=== PATIENT | male | born 1965 | race Caucasian/White ===

== ENCOUNTER 2022-01-01 17:26 | Emergency (ER) | payer OTHER, MEDICARE, SELFPAY ==
[2022-01-01 17:54] VITALS: BP 186/91; PULSE 76; RESP 14; TEMP 36.6; O2SAT 99
--- NOTE | 2022-01-01 20:02 | ECG_ITS ---
[facility] Test Date: 2022-01-01 Pat Name: Jeffery Amos Department: Room: Gender: Male [address] Clerk: : 1965 Requested By: Jennifer Benitez Order Number: [id number] Sheri MD: Hakan Jurado M.D. Measurements Intervals [place] Rate: 62 P: 66 TX: 134 QRS: 63 QRSD: 101 T: 48 QT: 410 QTc: 418 Interpretive Statements SINUS RHYTHM No previous ECG available for comparison Electronically Signed On 01-02-2022 9:30:16 CDT by Hakan Jurado M.D. [id number]
--- NOTE | 2022-01-01 20:02 | CTR_ITS ---
PROCEDURE INFORMATION: Exam: CT Abdomen And Pelvis Without Contrast Exam date and time: 01/01/2022 8:41 PM Age: 56 years old Clinical indication: Abdominal pain; Generalized; Prior surgery; Surgery type: Back surgery; Patient HX: C/O diffuse abd pain with nausea TECHNIQUE: Imaging protocol: Computed tomography of the abdomen and pelvis without contrast. Radiation optimization: All CT scans at this facility use at least one of these dose optimization techniques: automated exposure control; mA and/or kV adjustment per patient size (includes targeted exams where dose is matched to clinical indication); or iterative reconstruction. COMPARISON: No relevant prior studies available. RADIATION DOSE METRICS: Total DLP (mGy-cm): 1768.33 FINDINGS: Liver: Normal. No mass. Gallbladder and bile ducts: Normal. No calcified stones. No ductal dilation. Pancreas: Normal. No ductal dilation. Spleen: Normal. No splenomegaly. Adrenal glands: Normal. No mass. Kidneys and ureters: Normal. No hydronephrosis. Stomach and bowel: Unremarkable. No obstruction. No mucosal thickening. Appendix: No evidence of appendicitis. Intraperitoneal space: Unremarkable. No free air. No significant fluid collection. Vasculature: Unremarkable. No abdominal aortic aneurysm. Lymph nodes: Unremarkable. No enlarged lymph nodes. Urinary bladder: Unremarkable as visualized. Reproductive: Unremarkable as visualized. Bones/joints: Unremarkable. No acute fracture. The lumbar spine demonstrates moderate discogenic and apophyseal joint degenerative changes at multiple levels. Soft tissues: Unremarkable. CT/CT abdomen pelvis wo con [id number] IMPRESSION: No acute findings.
[2022-01-01 20:03] LABS: Basophils % 0.4 %; Eosinophils # 0.1 10^3/uL (0.0-0.8); Eosinophils % 0.8 %; Hematocrit 48.7 % (42.0-52.0); Hemoglobin 16.3 g/dL (11.7-16.6); Lymphocytes # 1.5 10^3/uL (0.8-4.8); Lymphocytes % 18.5 %; Mean Corpuscular HGB Conc 33.5 g/dL (30.0-36.0); Mean Corpuscular Hemoglobin 31.3 pg (28.0-34.0); Mean Corpuscular Volume 93.5 fl (80-94); Mean Platelet Volume 11.1 fL (7.4-10.4); Monocytes # 0.5 10^3/uL (0.2-0.9); Neutrophils # 5.93 10^3/uL (1.8-7.7); Nucleated Red Blood Cells % 0 %; Platelet Count 165 10^3/cmm (130-400); Red Blood Count 5.21 10^6/uL (4.1-5.3); Red Cell Distribution Width 11.5 % (12.1-15.1)
--- NOTE | 2022-01-01 20:07 | W.ED.ABDPA2 ---
HPI - Abdominal Pain General: Chief Complaint: Abdominal Pain Stated Complaint: severe abdominal pain Time Seen by Provider: 01/01/22 19:41 Source: patient Mode of arrival: ambulatory Limitations: no limitations History of Present Illness: 56-year-old male has a history of chronic back pain he is on morphine for that back pain he states he has been having episodic epigastric abdominal pain for months. He states he usually will take his home meds and improved he states that today he started having pain at 10 it has not improved. States epigastric very sharp in nature rates it a 7 out of 10 he denies any vomiting diarrhea or fever. Associated Symptoms: Denies chills, dysuria and fever(s) Review of Systems Const: Denies: fever(s), chills, body aches or change in appetite Eyes: Denies: blurry vision or eye discomfort ENMT: Denies: throat pain or dental pain Card: Denies: chest pain Resp: Denies: dyspnea GI: Reports: abdominal pain : Denies: dysuria Musc: Denies: neck pain or back pain Skin/Breast: Denies: rash Neuro: Denies: headache(s) Psych: Denies: depression Xu/Lymph: Denies: easy bruising All/Imm: Denies: urticaria PFSH ED PFSH: Medical History (Updated 01/01/22 @ 21:35 by Jennifer Benitez MD) Back pain Social History (Updated 01/01/22 @ 20:08 by Jennifer Benitez MD) Smoking and tobacco status: current every day smoker Physical Exam Const: COMMON NORMALS: no acute distress, patient oriented x3 and healthy appearing HENMT: COMMON NORMALS: normocephalic and atraumatic HEAD & SCALP: normocephalic and atraumatic Eye: COMMON NORMALS: Equal, round and reactive pupils present and EOMs intact bilaterally PUPIL: Yes Equal, round and reactive pupils present Neck/C-Spine: COMMON NORMALS: full ROM and supple Chest: COMMONS NORMALS: normal inspection of the chest and normal palpation of entire chest wall Resp: COMMON NORMALS: normal respiratory effort, No retractions, No use of accessory muscles and clear to auscultation bilaterally AUSCULTATION: clear to auscultation bilaterally Cardio: COMMON NORMALS: regular rate, regular rhythm and No murmurs present (Cardio) RATE: regular rate RHYTHM: regular rhythm GI: COMMON NORMALS: Normal to inspection, nondistended, normoactive bowel sounds present, Soft to palpation and no masses PALPATION: Yes Soft to palpation OTHER: epigastric tenderness Extremity: COMMON NORMALS: normal to inspection and full ROM Neuro: COMMON NORMALS: patient oriented x3, moves all extremities and no focal motor deficits Psych: COMMON NORMALS: mental status grossly normal, Normal thought process present and cooperative THOUGHT PROCESS: Normal thought process present Skin: COMMON NORMALS: no rashes or lesions noted and no wounds GENERAL SKIN EXAM: no rashes or lesions noted Course Vital Signs: Vital signs: Vital Signs Temperature 98.3 F 01/01/22 20:24 Pulse Rate 66 01/01/22 21:00 Respiratory Rate 14 01/01/22 21:00 Blood Pressure 167/96 01/01/22 21:00 Pulse Oximetry 95 01/01/22 21:00 MDM - Abdominal Pain Medical Decision Making Patient presents with abdominal pain blood work CT scan here are all normal we will start him on Protonix as it could be gastritis he is to follow-up his PCP and return if worsening he understands agrees to plan. His pain is improved discharge exam is benign. Lab Data : 01/01/22 19:59 01/01/22 19:59 Labs/Radiology: Radiology Impressions Abdomen/Pelvis CT 01/01/22 20:02 IMPRESSION: No acute findings. Laboratory Results WBC 8.0 10^3/uL (4.0-10.0) 01/01/22 19:59 RBC 5.21 10^6/uL (4.1-5.3) 01/01/22 19:59 Hgb 16.3 g/dL (11.7-16.6) 01/01/22 19:59 Hct 48.7 % (42.0-52.0) 01/01/22 19:59 MCV 93.5 fl (80-94) 01/01/22 19:59 MCH 31.3 pg (28.0-34.0) 01/01/22 19:59 MCHC 33.5 g/dL (30.0-36.0) 01/01/22 19:59 RDW 11.5 % (12.1-15.1) L 01/01/22 19:59 Plt Count 165 10^3/cmm (130-400) 01/01/22 19:59 MPV 11.1 fL (7.4-10.4) H 01/01/22 19:59 Neut % (Auto) 74.0 % 01/01/22 19:59 Lymph % (Auto) 18.5 % 01/01/22 19:59 [place] % (Auto) 6.0 % 01/01/22 19:59 Eos % (Auto) 0.8 % 01/01/22 19:59 Baso % (Auto) 0.4 % 01/01/22 19:59 Neut # (Auto) 5.93 10^3/uL (1.8-7.7) 01/01/22 19:59 Lymph # (Auto) 1.5 10^3/uL (0.8-4.8) 01/01/22 19:59 [place] # (Auto) 0.5 10^3/uL (0.2-0.9) 01/01/22 19:59 Eos # (Auto) 0.1 10^3/uL (0.0-0.8) 01/01/22 19:59 Baso # (Auto) 0.0 10^3/uL (0.0-0.1) 01/01/22 19:59 Nucleated RBC % (auto) 0 % 01/01/22 19:59 Nucleated RBCs # 0.0 /100WBC 01/01/22 19:59 Sodium 142 mmol/L (136-145) 01/01/22 19:59 Potassium 4.1 mmol/L (3.5-5.1) 01/01/22 19:59 Chloride 105 mmol/L (98-107) 01/01/22 19:59 Carbon Dioxide 27 mmol/L (22-29) 01/01/22 19:59 Anion Gap 14.1 (5-19) 01/01/22 19:59 BUN 10 mg/dL (6-20) 01/01/22 19:59 Creatinine 0.7 mg/dL (0.7-1.2) 01/01/22 19:59 GFR Calculation 116.2 mL/min (90-130) 01/01/22 19:59 Glucose 114 mg/dL (65-115) 01/01/22 19:59 Calculated Osmolality 294 mOsm/kg (285-295) 01/01/22 19:59 Calcium 9.0 mg/dL (8.5-10.5) 01/01/22 19:59 Total Bilirubin 1.6 mg/dL (0.15-1.2) H 01/01/22 19:59 AST 115 U/L (0-40) H 01/01/22 19:59 ALT 164 U/L (0-41) H 01/01/22 19:59 Alkaline Phosphatase 45 IU/L (40-130) 01/01/22 19:59 Total Protein 7.2 g/dL (6.6-8.7) 01/01/22 19:59 Albumin 4.6 g/dL (3.5-5.2) 01/01/22 19:59 Globulin 2.6 g/dL (1.3-4.6) 01/01/22 19:59 Lipase 38 U/L (13-60) 01/01/22 19:59 Urine Color Yellow (Yellow) 01/01/22 20:50 Urine Appearance Clear (CLEAR) 01/01/22 20:50 Urine pH 8 (5-7) H 01/01/22 20:50 Ur Specific [place] 1.010 (1.005-1.030) 01/01/22 20:50 Urine Protein Neg (Negative) 01/01/22 20:50 Urine Glucose (UA) Norm (Normal) 01/01/22 20:50 Urine Ketones Negative (Negative) 01/01/22 20:50 Urine Blood Neg (Negative) 01/01/22 20:50 Urine Nitrate Negative (Negative) 01/01/22 20:50 Urine Bilirubin Neg (Negative) 01/01/22 20:50 Prot Sulfosalicylic Acd Negative (Negative) 01/01/22 20:50 Urine Urobilinogen Norm mg/dL (Negative) 01/01/22 20:50 Ur Leukocyte Esterase Negative (Negative) 01/01/22 20:50 EKG Data EKG 1: I personally reviewed and interpreted this EKG as follows: EKG interpretation date: 01/01/22 EKG interpretation time: 20:08 Interpretation: nsr hr [address] or t wave abnormalities qrs 101 qtc 415 Discharge Plan Discharge Patient Disposition: Home Clinical Impression: Abdominal pain Qualifiers: Abdominal location: epigastric Qualified Code(s): R10.13 - Epigastric pain Prescriptions: New ondansetron 4 mg tablet,disintegrating 4 mg PO Q6H PRN (Reason: nausea and vomiting) Qty: 14 0RF Protonix 40 mg tablet,delayed release (DR/EC) 40 mg PO DAILY Qty: 60 0RF Discharge Orders: Discharge ED (Routine); Ordered 01/01/22 Ordered By: Jennifer Benitez Referrals: Patricia Henry MD [Primary Care Provider] - 1-3 days Discharge Diet: Advance as tolerated Discharge Activity: Resume usual activity Patient Instructions: Abdominal Pain (ED) Coding Level of Care Code ED [employer] 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
[2022-01-01 20:24] VITALS: BP 171/83; PULSE 62; RESP 18; TEMP 36.8; O2SAT 98
[2022-01-01 20:24] LABS: Alanine Aminotransferase 164 U/L (0-41); Albumin Level 4.6 g/dL (3.5-5.2); Alkaline Phosphatase 45 IU/L (40-130); Anion Gap 14.1 (5-19); Aspartate Amino Transferase 115 U/L (0-40); Blood Urea Nitrogen 10 mg/dL (6-20); Carbon Dioxide 27 mmol/L (22-29); Chloride 105 mmol/L (98-107); Globulin 2.6 g/dL (1.3-4.6); Glomerular Filtration Rate 116.2 mL/min (90-130); Glucose 114 mg/dL (65-115); Lipase 38 U/L (13-60); Osmolality Calculated 294 mOsm/kg (285-295); Potassium 4.1 mmol/L (3.5-5.1); Sodium 142 mmol/L (136-145); Total Bilirubin 1.6 mg/dL (0.15-1.2); Total Protein 7.2 g/dL (6.6-8.7)
[2022-01-01 20:29] VITALS: RESP 16; O2SAT 98
[2022-01-01] MEDS: HYDROmorphone 1 mg/mL INJ 1 mL IVP (20:29)
[2022-01-01] MEDS: ondansetron 2 mg/ML SDV 2 mL 4 MG IVP (20:29)
[2022-01-01 20:30] VITALS: BP 156/88; PULSE 60; RESP 16; O2SAT 97
[2022-01-01 20:55] LABS: Add Urine Microscopic? NO; Charge for UA Resulting for Rev
[2022-01-01 21:00] VITALS: BP 167/96; PULSE 66; RESP 14; O2SAT 95
[2022-01-01 21:23] LABS: Bilirubin Urine Neg (Negative); Blood Urine Neg (Negative); Glucose Urine UA Norm (Normal); Ketones Urine Negative (Negative); Leukocyte Esterase Urine Negative (Negative); Nitrate Urine Negative (Negative); Protein Urine Neg (Negative); Sulfosalicylic Acid Urine Negative (Negative); Urine Appearance Clear (CLEAR); Urine Color Yellow (Yellow); Urobilinogen Urine Norm (Negative); pH Urine 8 (5-7)
[2022-01-01 21:49] VITALS: BP 164/77; PULSE 66; RESP 18; TEMP 37.3; O2SAT 97
== END 2022-01-01 21:50 | disposition home or self-care (01) ==
PROVIDERS: Emergency Medicine; Emergency Provider Emergency Medicine; PCP Family Medicine
DX: R10.13 Epigastric pain (principal)
CPT/HCPCS: 74176; 80053; 81003; 83690; 85025; 93005; 96374; 96375; 99284; J1170; J2405

== ENCOUNTER 2023-03-04 20:00 | Outpatient (CLI) | payer OTHER, SELFPAY | END 2023-03-04 20:01 | disposition home or self-care (01) | PROVIDERS: PCP Family Medicine; Visit Provider Family Medicine | DX: G47.33 Obstructive sleep apnea (adult) (pediatric) (principal) | CPT/HCPCS: 95810; 95811 ==

== ENCOUNTER 2025-02-16 10:36 | Emergency (ER) | payer OTHER, SELFPAY ==
--- OUTSIDE RECORDS SUMMARY | 2024-05-04 08:31 | XMS_ITS | Encounter Summary ---
Author Name [facility] [place] [facility] Address [address] [place] [address] Care Team Providers Care Route Sales Specialist Name Role Phone THANIA DE Primary Care Provider Unavailabl e BILL KAPOOR Primary Care Provider Unavailabl e Insurance Providers: All historical and current Section Date Range: From patient's date of to the date document was created. This section includes the names of all active insurance providers for the patient. Insurance Provider Type of Coverage Plan Name Start of Policy Coverage End of Policy Coverage Group Number Member ID Insurance Provider's Telephone Number Policy Stout's Name Patient's Relationship to Policy Stout MEDICARE (WNR) MEDICARE (M) PART B Sep 03, 2020 PART B [id number] KLAUS CORRAL PATIENT MEDICARE (WNR) MEDICARE (M) PART A Sep 03, 2020 PART A [id number] KLAUS CORRAL PATIENT [facility] 2018 [place] RE Aug 03, 2017 SELECT [id number] KLAUS CORRAL PATIENT -FO R-LIFE [place] RE FOR LIFE Sep 03, 2020 [facility] [id number] KLAUS CORRAL PATIENT Selected Encounter This section includes the information on record at [place] for the Encounter. Date/Time Encounter Type Encounter Description Reason Pro vider Source May 04, 2024 01:31 PM Outpatient Encounter ADMIN PAT ACTIVTIES (MASNONCT) [facility] Encounter Template Text not used by [place] Plan of Treatment: Future Appointments (+ 6 months) and Future Tests (+/- 45 days) The Plan of Treatment section includes future care activities for the patient from all [place] treatmentfacilities. This section includes future appointments and future orders which are active, pending or scheduled. Future Appointments This section includes appointments that were scheduled to occur 6 months from the date of the Encounter, up to a maximum of 20 appointments. The data comes from all [place] treatment facilities. Appointment Date/Time Appointment Type Appointme nt Facility Name Jun 07, 2024 03:00 PM AMBULATORY - MEDICINE [facility] Jun 07, 2024 03:01 PM AMBULATORY - MEDICINE [facility] Jun 14, 2024 10:50 AM AM[facility] - [facility]ICINE [facility] Jul 05, 2024 10:00 AM AMBULATORY - NONE [facility] Aug 09, 2024 03:00 PM AMBULATORY - MEDICINE [facility] Aug 09, 2024 03:02 PM AM[facility] - [facility]ICINE [facility] Oct 12, 2024 02:30 PM AMBULATORY - NONE [facility] Oct 13, 2024 10:40 AM AMBULATORY - MEDICINE [facility] Oct 21, 2024 11:00 AM AMBULATORY - MEDICINE [facility] Oct 25, 2024 02:30 PM AMBULATORY - MEDICINE [facility] Nov 01, 2024 02:30 PM AMBULATORY - MEDICINE [facility] Social History: Smoking Status (Most current) and Tobacco Use (All prior to encounter date) This section includes the most current, and the historical, smoking and tobacco- related health factors from the [place] facility where the Encounter took place. Current Smoking Status This section includes the most current smoking, or tobacco-related health factor, from the [place] facility where the Encounter took place. Date/Time Current Smoking Status [place] Oct 29, 2023 01:00 PM VA-TOBACCO USE [place] 30 MIN OF WAKE UP [facility] Tobacco Use History This section includes a history of the smoking, or tobacco-related health factors, that were collected on or before the date of the Encounter. The data comes from the [place] facility where the Encounter took place. 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 [facility] Oct 29, 2023 01:00 PM VA-TOBACCO USE MED NO [facility] Oct 29, 2023 01:00 PM VA-TOBACCO USE WI 30 MIN OF WAKE UP [facility] Oct 29, 2023 01:00 PM VA-TOBACCO USER EVERY DAY [facility] Nov 06, 2022 02:00 PM VA-TOBACCO DOESNT USE WI 30 MIN WAKEUP [facility] Nov 06, 2022 02:00 PM VA-TOBACCO USE > 1 5 LESS THAN 30 YEARS [facility] Nov 06, 2022 02:00 PM VA-TOBACCO USE ADVICE [facility] Nov 06, 2022 02:00 PM 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 [facility] Nov 06, 2022 02:00 PM VA-TOBACCO USE MED NO [facility] Nov 06, 2022 02:00 PM VA-TOBACCO USER EVERY DAY [facility] Sep 09, 2021 02:31 PM VA-TOBACCO USE > 1 5 LESS THAN 30 YEARS [facility] Sep 09, 2021 02:31 PM VA-TOBACCO USE ADVICE [facility] Sep 09, 2021 02:31 PM 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 This section includes ALL of a patient's completed or amended [place] Advance and Rescinded Directives. The entries below indicate that a directive exists for the patient, but an actual copy is not included with this document. The data comes from all [place] facilities. Date Advance Directives Provider Source Nov 25, 2004 ADVANCE DIRECTIVE LINDA ALDRIDGE [facility] Encounter Notes: All associated encounter notes This section contains the clinical notes associated to the Encounter. Date/Time Encounter Note(s) Provider Source May 04, 2024 01:31 PM GENERAL MEDICINE N OTE: LOCAL TITLE: General Note PB STANDARD TITLE: GENERAL MEDICINE NOTE DATE OF NOTE: MAY 04, 2024@13:31 ENTRY DATE: MAY 04, 2024@13:32:13 AUTHOR: SAM DIXON EXP COSIGNER: URGENCY: STATUS: COMPLETED Rec'd hearing aids, certified in [facility]. Patient has upcoming appt for fitting /es/ [facility] Signed: 05/04/2024 13:32 SAM DIXON [facility]
--- OUTSIDE RECORDS SUMMARY | 2024-10-21 06:00 | XMS_ITS | Encounter Summary ---
Author Name [facility] [place] [facility] [place] [facility] [place] Address [address] [place] [address] Care Team Providers Care Manager Science Name Role Phone PATRICIA HENRY Primary Care Provider Unavailabl e BILL [place] [...] PART B Sep 03, 2020 PART B [id number] KLAUS CORRAL PATIENT MEDICARE (WNR) MEDICARE (M) PART A Sep 03, 2020 PART A [id number] KLAUS CORRAL PATIENT [place] 2018 [place] RE Aug 03, 2017 [facility] [id number] KLAUS CORRAL PATIENT -FO R-LIFE [facility] RE FOR LIFE Sep 03, 2020 [facility] [id number] KLAUS CORRAL PATIENT Selected Encounter This section includes the information on record at [place] for the Encounter. Date/Time Encounter Type Encounter Description Reason Provider Source Oct 21, 2024 11:00 AM OFFICE O/P EST MOD 30 MIN PRIMARY CARE/MEDICINE ICD-10-CM F32.9 Major depressive disorder, single episode, unspecified [facility] Encounter Template Text not used by [facility] Assessments - Encounter Diagnoses This section includes the primary and secondary diagnoses documented for the Encounter. Date/Time Primary/Secondary Diagnosis Diagnosis Name Provider Source Oct 21, 2024 12:08 PM PRIMARY Major depressive disorder, single episode, unspecified [facility] Oct 21, 2024 12:08 PM SECONDARY Cyclothymic disorder [facility] Oct 21, 2024 12:08 PM SECONDARY Essential (primary) hypertension [facility] Oct 21, 2024 12:08 PM SECONDARY Fatty (change of) liver, not elsewhere classified [facility] Oct 21, 2024 12:08 PM SECONDARY Hematuria, unspecified [facility] Oct 21, 2024 12:08 PM SECONDARY Male erectile dysfunction, unspecified [facility] Oct 21, 2024 12:08 PM SECONDARY Nicotine dependence, cigarettes, uncomplicated [facility] Oct 21, 2024 12:08 PM SECONDARY Obesity, unspecified [facility] Oct 21, 2024 12:08 PM SECONDARY Other hemorrhoids [facility] Oct 21, 2024 12:08 PM SECONDARY Other [facility]borrheic keratosis [facility] Oct 21, 2024 12:08 PM SECONDARY Pol[facility] Oct 21, 2024 12:08 PM SECONDARY Post-traumatic stress disorder, chronic [facility] Oct 21, 2024 12:08 PM SECONDARY Prediabetes [facility] Oct 21, 2024 12:08 PM SECONDARY Sleep apnea, unspecified [facility] Oct 21, 2024 12:08 PM SECONDARY Ventricular premature depolarization PATRICIA HENRY [facility] Plan of Treatment: Future Appointments (+ 6 months) and Future Tests (+/- 45 days) The Plan of Treatment section includes future care activities for the patient [facility]. This section includes future appointments and future orders which are active, pending or scheduled. Future Appointments This section includes appointments that were scheduled to occur 6 months from the date of the Encounter, up to a maximum of 20 appointments. The data comes from all [place] treatment facilities. Appointment Date/Time Appointment Type Appointme nt Facility Name Oct 25, 2024 02:30 PM AMBULATORY - MEDICINE [facility] Nov 01, 2024 02:30 PM [facility] Nov 15, 2024 02:30 PM [facility] Nov 22, 2024 02:30 PM [facility] - MEDICINE [facility] 2024 02:30 PM AMBULATORY MEDICINE [facility] Active, Pending, and Scheduled Orders This section includes a listing of several types of active, pending, and scheduled orders, including clinic medications orders, diagnostic test orders, procedure orders and consult orders; where the start date of the order is 45 days before the date of the Encounter or 45 days after the date of theEncounter. The data comes from all [place] treatment facilities. Test Date/Time Test Type Test Details Facility Name Sep 30, 2024 09:56 AM Consult Order [facility] MASSAGE THERAPY [id number] Cons [employer] Trainer's Choice [facility] Lab Results: +/- 30 days of the encounter This section includes the Chemistry and Hematology Lab Results on record with [place] for the patient. Radiology Reports and Pathology Reports are provided separately, in subsequent sections. Lab Results This section contains the Chemistry/Hematology Results that were resulted 30 days before or 30 daysafter the date of the Encounter. Date/Time Source Result Type Result - Unit Interpretation Reference Range Specimen Type Comment Oct 12, 2024 11:10 AM [facility] TSH ([place]-PB) SERUM Specimen Type: SERUM No comment entered. Ordering Provider: PATRICIA HENRY Report Released Date/Time: Oct 12, 2024 11:09 AM Reporting Lab: JENNIFER RODNEY [facility] [address] [place] [address] Performing Lab: [place] [facility] [address] [place] [address] TSH 1.032 u[IU]/mL 0.47-5 Oct 12, 2024 11:10 AM [place] [facility] CHOLESTEROL PANEL (PB) PLASMA Specimen Type: P LASMA No comment entered. Ordering Provider: PATRICIA HENRY Report Released Date/Time: Oct 12, 2024 11:09 AM Reporting Lab: [place] [facility] [address] [place] [address] Performing Lab: [place] [facility] [address] [place] [address] CHOLESTEROL 187 mg/dL 0-200 TRIGLYCERIDE 119 mg/dL 0-150 CALCULATED LDL 127.0 mg/dL HDL(New) 36.2 mg/dL L >40 HDL % OF TOTAL CHOLESTEROL (PB) 19.4 >25 Oct 12, 2024 11:10 AM [place] [facility] HGA1C BLOO D Specimen Type: BLOOD No comment entered. Ordering Provider: PATRICIA HENRY Report Released Date/Time: Oct 12, 2024 11:09 AM Reporting Lab: [place] [facility] [address] [place] [address] Performing Lab: [place] [facility] [address] [place] [address] HGA1C 6.3 H 4.0-6.0 Oct 12, 2024 11:10 AM [place] [facility] CBC BLOO D Specimen Type: BLOOD No comment entered. Ordering Provider: PATRICIA HENRY Report Released Date/Time: Oct 12, 2024 11:09 AM Reporting Lab: [place] [facility] [address] [place] [address] Performing Lab: [place] [facility] [address] [place] [address] WBC 6.7 10*3/uL 3.6-11.2 RBC 5.27 10*6/uL 4.10-5.70 HGB 16.9 g/dL H 13.1-16.8 HCT 48.8 H 38.2-48.4 MCV 92.6 fL 80.0-100.0 MCH 32.1 pg 27.0-34.0 MCHC 34.6 g/dL 33.0-36.0 PLT 232 10*3/uL 150-400 MPV 10.7 fL 7.5-11.2 RDW 12.0 11.8-15.1 LYMPHOCYTES, AUTO % 39.8 MONOCYTES, AUTO % 8.4 NEUTROPHILS, AUTO % 49.2 EOSINOPHILS, AUTO % 1.8 BASOPHILS, AUTO % 0.6 LYMPHOCYTES, ABSOLUTE 2.65 10*3/uL 0.77- 4.50 MONOCYTES, ABSOLUTE 0.56 10*3/uL 0.19-0. 8 NEUTROPHILS, ABSOLUTE 3.27 10*3/uL 2.10- 8.00 EOSINOPHILS, ABSOLUTE 0.12 10*3/uL 0.00- 0.60 BASOPHILS, ABSOLUTE 0.04 10*3/uL 0.00-0. 20 IMMATURE GRANS, AUTO % 0.2 IMMATURE GRANS, AUTO ABS 0.01 10*3/uL 0. 00-0.05 Oct 12, 2024 11:10 AM [facility] COMPREHENSIVE METABOLIC PANEL PLASMA Specimen Type: PLASMA No comment entered. Ordering Provider: PATRICIA HENRY Report Released Date/Time: Oct 12, 2024 11:09 AM Reporting Lab: [facility] [address] [facility] [address] Performing Lab: [facility] [address] [facility] [address] CREATININE 0.93 mg/dL 0.7-1.3 UREA NITROGEN 13 mg/dL 9-25 GLUCOSE 108 mg/dL H 72-99 SODIUM 141 meq/L 136-145 POTASSIUM 4.4 meq/L 3.5-5 CHLORIDE 105 meq/L 98-107 CARBON DIOXIDE 26 meq/L 22-31 CALCIUM 9.1 mg/dL 8.4-10.4 PROTEIN 7.2 g/dL 6-8.6 ALBUMIN 4.5 g/dL 3.4-5 TOTAL BILIRUBIN 0.6 mg/dL 0.2-1.2 ALKALINE PHOSPHATASE 38 U/L L 40-150 AST/SGOT 39 U/L H 5-34 ALT/SGPT 96 U/L H 8-40 EGFR (CKD-EPI 2020) 95 Vital Signs: All taken on the encounter date This section contains inpatient and outpatient Vital Signs collected on the date of the Encounter. Date/Time Temperature Pulse Blood Pressure Respiratory Rate SP02 Pain Height Weight Body Mass Index Source Oct 21, 2024 11:32 AM 177/88 [facility] Oct 21, 2024 11:31 AM 82 158/104 18 97 6 287.9 43 [facility] Social History: Smoking Status (Most current) and Tobacco Use (All prior to encounter date) This section includes the most current, and the historical, smoking and tobacco- related health factors from the [place] facility where the Encounter took place. Current Smoking Status This section includes the most current smoking, or tobacco-related health factor, from the [place] facility where the Encounter took place. Date/Time Current Smoking Status Comment Facil ity Oct 21, 2024 11:00 AM VA-TOBACCO USE EVERY DAY CIGARET [facility] Tobacco Use History This section includes a history of the smoking, or tobacco-related health factors, that were collected on or before the date of the Encounter. The data comes from the [place] facility where the Encounter took place. Date/Time Smoking Status/Tobacco Use Comment F acility Oct 21, 2024 11:00 AM VA-TOBACCO SCREEN FOLLOW-UP [facility] Oct 21, 2024 11:00 AM VA-TOBACCO USE ADVICE [facility] Oct 21, 2024 11:00 AM VA-TOBACCO USE NITROGLYCERIN NITRATOR OPERATOR BATCH NO [facility] Oct 21, 2024 11:00 AM VA-TOBACCO USE EVERY DAY CIGARET [facility] Oct 21, 2024 11:00 AM VA-TOBACCO USE MED NO [facility] Oct 29, 2023 01:00 PM VA-TOBACCO USE 30 YEARS OR MORE [facility] Oct 29, 2023 01:00 PM VA-TOBACCO USE ADVICE [facility] Oct 29, 2023 01:00 PM VA-TOBACCO USE NITROGLYCERIN NITRATOR OPERATOR BATCH NO [facility] Oct 29, 2023 01:00 PM VA-TOBACCO USE MED NO [facility] Oct 29, 2023 01:00 PM VA-TOBACCO USE WI 30 MIN OF WAKE UP [facility] Oct 29, 2023 01:00 PM VA-TOBACCO USER EVERY DAY [facility] Nov 06, 2022 02:00 PM VA-TOBACCO DOESNT USE WI 30 MIN WAKEUP [facility] Nov 06, 2022 02:00 PM VA-TOBACCO USE > 1 5 LESS THAN 30 YEARS [facility] Nov 06, 2022 02:00 PM VA-TOBACCO USE ADVICE [facility] Nov 06, 2022 02:00 PM VA-TOBACCO USE NITROGLYCERIN NITRATOR OPERATOR BATCH NO [facility] Nov 06, 2022 02:00 PM VA-TOBACCO USE MED NO [facility] Nov 06, 2022 02:00 PM VA-TOBACCO USER EVERY DAY [facility] Sep 09, 2021 02:31 PM VA-TOBACCO USE > 1 5 LESS THAN 30 YEARS [facility] Sep 09, 2021 02:31 PM VA-TOBACCO USE ADVICE [facility] Sep 09, 2021 02:31 PM VA-TOBACCO USE NITROGLYCERIN NITRATOR OPERATOR BATCH NO [facility] Sep 09, 2021 02:31 PM VA-TOBACCO USE MED NO [place] [facility] Sep 09, 2021 02:31 PM VA-TOBACCO USE WI 30 MIN OF WAKE UP [facility] Sep 09, 2021 02:31 PM VA-TOBACCO USER EVERY DAY [facility] Sep 06, 2008 11:00 PM IC/PATIENT IS SMOKER [facility] Sep 06, 2008 11:00 PM PATIENT NOT GIVEN TOBACCO HANDOU T [facility] Advance Directives: All historical and current Section Date Range: From patient's date of to the date document was created. This section includes ALL of a patient's completed or amended [place] Advance and Rescinded Directives. The entries below indicate that a directive exists for the patient, but an actual copy is not included with this document. The data comes from all [place] facilities. Date Advance Directives Provider Source Nov 25, 2004 ADVANCE DIRECTIVE LINDA ALDRIDGE [facility] Encounter Notes: All associated encounter notes This section contains the clinical notes associated to the Encounter. Date/Time Encounter Note(s) Provider Source Oct 21, 2024 02:03 PM ORTHOTICS PROSTHETICS EDUCATION NOTE: LOCAL TITLE: NURSING PROSTHETIC ITEM PATIENT EDUCATION NOTE PB STANDARD TITLE: ORTHOTICS PROSTHETICS EDUCATION NOTE DATE OF NOTE: OCT 21, 2024@14:03 ENTRY DATE: OCT 21, 2024@14:03:11 AUTHOR: KARTIK FONTENOT COSIGNER: URGENCY: STATUS: COMPLETED Prosthetic Patient Education Learner: Patient Method: Individual Evaluation of Learning: Able to Perform/Verbalize Items: BP Monitor & Cuff 1. Sit comfortably with your left arm resting on a flat surface so that the center of your upper arm is at the same height as your heart. 2. Lay left arm on the table, palm up and thread cuff end through metal loop, smooth side against arm. Then position the tube off-center toward the inner side of arm in line with the finger. 3. Pull the end of the cuff to tighten it, fold back the extra material, and fasten securely. The cuff should be snug but not too tight. You should be able to insert two fingers between the cuff and your arm. 4. Confirm that the index points within the proper fit range. 5. Press the START button. As the cuff pressurizes, measurement will begin and the Cuff Inflation Meter will show on the display screen. It is normal for the cuff to feel very tight. 6. When the inflation is complete, the deflation starts automatically and the heart blinks, indicating that the measurement is in progress. Once the pulse is detected, the symbol flashes with each pulse beat. 7. When the measurement is complete, the systolic and diastolic pressure readings and pulse rate are displayed. The cuff deflates and the monitor automatically shuts off after 60 seconds, or you can turn it off by pressing the START button. 8. The reading is then stored into memory. 9. Remove cuff and make a note of your blood pressure and pulse rate. Electrodes/TENS Instructions: Electrodes applied to the skin allow the stimulator to send gentle electrical current to underlying nerves. Firmly insert the end of the lead wire pin into the electrode connectors. Make sure no bare metal of the pins is exposed. Remove electrodes from protective backing. Keep backing to properly store electrodes after use. Apply electrodes to the exact site indicated by your Doctor or therapist. Skin at the application site should be clean and dry. Check that electrodes are securely placed on the skin before activating the device. Possible adverse reactions Do no use to treat one region for extended periods of time (more than 30 minutes a session, up to 2 times per day) or muscles in that region may become exhausted and sore You may experience skin irritation and nickerson beneath the electrodes applied to your skin You should stop using the device and consult your physician if you experience adverse reactions from the device. A copy of this document was provided to the patient. /es/ Kartik Fontenot RN,BSN [place] Signed: 10/21/2024 14:07 [facility] Oct 21, 2024 12:08 PM INTEGRATIVE HEALTH NOTE: LOCAL TITLE: [place] ACUPUNCTURE NOTE STANDARD TITLE: INTEGRATIVE HEALTH NOTE DATE OF NOTE: OCT 21, 2024@12:08 ENTRY DATE: OCT 21, 2024@12:08:56 AUTHOR: PATRICIA HENRY COSIGNER: URGENCY: STATUS: COMPLETED Initial visit [place] Acupuncture was the only treatment given. Patient was evaluated and agreed to receive [place] Acupuncture (BFA). Patient was evaluated and agreed to receive [place] Acupuncture Protocol (BFA) for the following pain condition(s): Comment: Lower back left shoulder Pre BFA Pain Numeric Rating Scale of site with highest pain: 6 The patient was asked the following questions: During the past 24 hours, how much has your pain interfered with your usual activity? 6 During the past 24 hours, how much has your pain interfered with your usual sleep? 6 During the past 24 hours, how much has the pain affected your usual mood? 6 During the past 24 hours, how much has pain contributed to your stress? 8 Oral informed consent obtained for BFA. Procedure: Ear was prepped with alcohol Needle type: Adhesive press tacks 0.9 The following points were placed: All 10 points in both ears Complications: Patient tolerated well, without any complications. Post treatment Numeric Pain Rating Scale: To be determined standard [id number] time for application of BFA protocol is 15 minutes. No electrical stimulation was used. Face to face time spent [facility] procedure in the delivery of BFA was 15 minutes. The patient was provided with the following post BFA instructions: -Continue normal activities and avoid over exertion for the initial 6-12 hours after a treatment. Avoid alcohol for 12 hours after treatment. -You may bathe or shower with the needles in place, but be careful not to pull the needles when cleaning or drying the ear. -If you experience new or continued redness, swelling or pain, remove the needles or return to clinic for evaluation and/or needle removal. -You may experience drowsiness, lightheadedness, or euphoria during the treatment or within 30 minutes of treatment. -Do not have an MRI scan with the needles in place (If you need to have an MRI, please remove needles prior to scan). -Continue to take all prescription medication according to your provider's instructions. -After three days, remove all needles. You may have small stud needles (ASP needles) covered by an adhesive bandage, or needles that are attached to the adhesive bandage (press tack needles). ASP needles may be removed by gripping them with your fingernails or tweezers. Rock the needles back and forth to remove. Press tack needles may be removed by peeling off the tape that holds the needle in place. -[place] must be placed in a sharps container or household container that meets sharps disposal guidelines. Household container must be: a. made of a puncture-resistant material; b. able to close with a tight-fitting, puncture resistant lid, without sharps being able to come out; c. stand upright and be stable during use; d. leak-resistant; e. properly labeled (sharps - biohazard); and f. disposed of according to community guidelines, if available. -Please keep all regularly scheduled follow-up visits. Return sooner should your condition worsen. Future visit dates/details: lisha /brenda/ Patricia Henry MD [facility] Primary Care Signed: 10/21/2024 12:10 PATRICIA HENRY [facility] Oct 21, 2024 11:36 AM PRIMARY CARE PROGRESS NOTE: LOCAL TITLE: PRIMARY CARE CLINIC PROGRESS NOTE PB STANDARD TITLE: PRIMARY CARE PROGRESS NOTE DATE OF NOTE: OCT 21, 2024@11:36 ENTRY DATE: OCT 21, 2024@11:36:19 AUTHOR: PATRICIA HENRY EXP COSIGNER: URGENCY: STATUS: COMPLETED SUBJECTIVE: ROBERTO CARLOS CORRAL is a 58 years old MALE. HPI: Presents to the clinic today for a periodic health maintenance visit. Last seen October 29, 2023. He reports he was seeing the massage theraptist that was in the rocess of getting him a neurolumen's to use. He does have a TENS unit but does not use it needs new electronic pads. He does have some skin spots that he would like looked at as well. Non-VA Primary Care Provider None Specialty Services none FAMILY HX: Mother is living, Breast cancer age - 83 Father- unknown Sister- Costello's syndrome SOCIAL HX: MARITAL STATUS: , Raquel WORK HX: retired, [employer] HOBBIES: Odom, fish, woodworking TOBACCO: + 1ppd ALCOHOL: occ DRUGS: no HX: BRANCH: [employer] [phone]. 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 OVERSEAS STATIONS/DEPLOYMENTS: [place], [place], [place], [place], [place], [place] MAJOR ACCIDENTS OR INJURIES WHILE ON ACTIVE DUTY: SURGICAL HX: laminectomy L3/4 discectomy lumbar wisdom teeth Problem List 1) Polyp Colon (RUST [id number]) 2) Cyclothymia 3) Degeneration of Lumbar Intervertebral Disc (RUST [id number]) 4) Steatosis of liver 5) Major depressive disorder 6) Hematuria 7) Internal hemorrhoids 8) Sleep Apnea (RUST [id number]) 9) Obesity (RUST [id number]) 10) Chronic post-traumatic stress disorder 11) HTN - Hypertension (RUST [id number]) 12) Erectile Dysfunction (RUST [id number]) 13) Prediabetes (RUST [id number]) 14) Unifocal premature ventricular complexes 15) Cigarette smoker 16) Prediabetes (RUST [id number]) Active Outpatient Medications (including Supplies): Active Outpatient Medications Status 1) CHOLECALCIF 50MCG (D3-2,000UNIT) TAB TAKE TWO TABLETS BY ACTIVE MOUTH ONCE A DAY FOR VITAMIN D DEFICIENCY. 2) HYDROCHLOROTHIAZIDE 25MG TAB TAKE ONE TABLET BY MOUTH ONCE A ACTIVE DAY FOR BLOOD PRESSURE 3) IBUPROFEN 800MG TAB TAKE ONE TABLET BY MOUTH EVERY 6 HOURS ACTIVE NEEDED FOR PAIN OR INFLAMMATION. TAKE WITH FOOD. 4) MORPHINE SO4 15MG SA TAB TAKE ONE TABLET BY MOUTH EVERY 12 ACTIVE HOURS MAY CAUSE CONSTIPATION. SWALLOW WHOLE; DO NOT CRUSH OR CHEW. THIS QUANTITY MUST LAST 28 DAYS OR MORE 5) MORPHINE SO4 IR 15MG TAB TAKE ONE TABLET BY MOUTH EVERY 24 ACTIVE HOURS (ONCE A DAY) NEEDED FOR BREAKTHROUGH PAIN MAY CAUSE CONSTIPATION. THIS QUANTITY MUST LAST 28 DAYS OR MORE 6) SILDENAFIL CITRATE 100MG TAB TAKE ONE TABLET BY MOUTH EVERY ACTIVE WEEK NEEDED FOR ERECTILE DYSFUNCTION (TAKE 60 MINUTES PRIOR TO SEXUAL ACTIVITY) - LIMIT 6 DOSES PER 30 DAYS Allergies: TETRACYCLINE Review of Systems: as per HPI and Systemic: Denies fatigue, fever, chills, or weight loss CV: Denies chest pain, palpitations Pulmonary: Denies hemoptysis, Shortness of breath, dyspnea on exertion GI: Denies constipation, bloody stools, diarrhea, indigestion, or n/v Ext: Denies any swelling Neuro: Denies slurred speech or dizziness Skin: Denies abnormal lesions; denies any new rashes PSYCH: Denies SI/HI; denies nightmares OBJECTIVE: Vital Signs Temperature: 98.5 F [36.9 C] (11/12/2023 16:34) Respiratory Rate: 18 (10/21/2024 11:31) Pulse Rate: 82 (10/21/2024 11:31) Blood Pressure: 177/88 (10/21/2024 11:32) HT: 69 in [175.3 cm] (10/29/2023 13:14) WT: 287.9 lb [130.59 kg] (10/21/2024 11:31) BMI: 42.6 97% (10/21/2024 11:31) Physical Exam General: NAD noted, A&Ox3, pleasant, appears stated age HEENT: NCAT, TM's clear, nares and oropharynx clear Neck: Supple with normal active ROM, without any lymphadenopathy Heart: RRR, no murmur, clicks, or rub Resp: Lungs CTA bilaterally, respirations even and unlabored Ext: No clubbing, cyanosis, edema or obvious deformity Skin: Warm, pink, and dry, no rashes; several scattered seborrheic keratoses Neuro: Grossly intact Psych: Affect normal, answers questions appropriately throughout visit A/P: ASSESSMENT and PLAN Health Maintenance: Labs reviewed with patient and printout given to patient. Discussed preventative health to include diet and exercise as well as immunizations. 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 Mccarthy on morphine and soma prn (reports 1-4x/week dependent on activity) DIscussed BFA which he as tried in the past without results but willing to try again. He was in massage theary and they were trying to get him a neurolumen equipment to use. He does have a TENs unit which he is not curretnly using, but I encouraged him to use regularly, new pads given. . Steatosis of liver- monitoring enzymes; encouraged weight loss with diet and exercise. Sleep Apnea- stable on his CPAP Morbid Obesity- he has gained 9 pounds since his visit in January of last year HTN - will increase his hydrochlorothiazide to 25 mg daily have him come in in a couple weeks for blood pressure recheck Erectile Dysfunction - doing well on Viagra Vit D deficiency- on supplement Unifocal premature ventricular complexes-stable no palpitations;he did have a stress test 2022 which was negative Heart murmur-we will set him up for an echocardiogram for further evaluation; ECG today normal sinus rhythm no acute ST changes normal axis Cigarette smoker-encouraged him to quit smoking Hematuria-will obtain a UA today Internal hemorrhoids-stable denies any current issues Seborrheic keratoses-reassured Stable. Discussed medications with patient; med rec completed. Continue current regimen as prescribed by PCP and specialists. RTC as needed if developing any new or worsening symptoms. Please notify PACT with medication changes or for orders coordination as needed if seen by a specialist in the future. Will f/u with patient once updated labs / imaging / testing received; otherwise f/u as listed below. Follow-up: 12 months with fasting labs prior to appointment and/or as needed. Discussed with patient that in the event of community imaging / testing being ordered in the future, once the imaging / testing has been completed, please notify PACT of completion at outside facility if not called with results within 1 week by a [facility] member; this is due to intermittent lapses in notification of imaging completion within [facility]. All questions answered; agrees to plan of care. Follow up as listed above, annually, and as needed. Keep all appointments. Medications Reconciled. See AVS given to . Time spent 30 minutes. /brenda/ MD [facility] Signed: 10/21/2024 12:07 [facility] Oct 21, 2024 11:09 AM PRIMARY CARE NURSING NOTE: LOCAL TITLE: PRIMARY CARE NURSING PROGRESS NOTE (TEXT) NURSING P STANDARD TITLE: PRIMARY CARE NURSING NOTE DATE OF NOTE: OCT 21, 2024@11:09 ENTRY DATE: OCT 21, 2024@11:10:12 AUTHOR: KARTIK FONTENOT COSIGNER: URGENCY: STATUS: COMPLETED Established Patient ROBERTO CARLOS CORRAL IS A 58 YEAR OLD MALE BEING SEEN IN CLINIC OCT 21, 2024. REASON FOR VISIT: The is here for is annual visit, the has complete of skin tags on the right shoulder that have gotten tender over the last 3-4 months. The has questions about massage therapy. Are you receiving care any where other than the [facility]? No HEALTH AND SURGICAL HISTORY: Does patient report using home oxygen? No CURRENT ACTIVE MEDICATIONS FOR REVIEW: Allergies/ADRs (Tool #5) FACILITY ALLERGY/ADR -------- [facility] T[facility]AC[facility]CL[facility] T[facility]RAC[facility]CLINE [facility] TETRACYCLINE Med. Reconciliation (Tool #1) INCLUDED IN THIS LIST: Alphabetical list of active outpatient prescriptions dispensed from this VA (local) and dispensed from another VA or DoD facility (remote) as well as inpatient orders (local pending and active), local clinic medications, locally documented non-VA medications, and local prescriptions that have or been discontinued in the past 90 days. Non-VA Meds Last Documented On: Data not found NOTE The display of VA prescriptions dispensed from another VA or DoD facility (remote) is limited to active outpatient prescription entries matched to National Drug File at the originating site and may not include some items such as investigational drugs, compounds, etc. NOT INCLUDED IN THIS LIST: Medications self-entered by the patient into personal health records (i.e. [employer]) are NOT included in this list. Non-VA medications documented outside this [place], remote inpatient orders (regardless of status) and remote clinic medications are NOT included in this list. The patient and provider must always discuss medications the patient is taking, regardless of where the medication was dispensed or obtained. OUTPT CHOLECALCIF 50MCG (D3-2,000UNIT) TAB (Status = Active) TAKE TWO TABLETS BY MOUTH ONCE A DAY FOR VITAMIN D DEFICIENCY. Rx# [id number] Last Released: 11/02/23 Qty/Days Supply: 200/90 Rx Expiration Date: 10/29/24 Refills Remainin OUTPT HYDROCHLOROTHIAZIDE 25MG TAB (Status = Active) TAKE ONE TABLET BY MOUTH ONCE A DAY FOR BLOOD PRESSURE Rx# [id number] Last Released: 07/04/24 Qty/Days Supply: 90/90 Rx Expiration Date: 10/29/24 Refills Remainin OUTPT IBUPROFEN 800MG TAB (Status = Active) TAKE ONE TABLET BY MOUTH EVERY 6 HOURS NEEDED FOR PAIN OR INFLAMMATION. TAKE WITH FOOD. Rx# [id number] Last Released: 06/07/24 Qty/Days Supply: 100/30 Rx Expiration Date: 10/29/24 Refills Remainin OUTPT MORPHINE SO4 15MG SA TAB (Status = Discontinued) TAKE ONE TABLET BY MOUTH EVERY 12 HOURS THIS QUANTITY MUST LAST 28 DAYS OR MORE MAY CAUSE CONSTIPATION. SWALLOW WHOLE; DO NOT CRUSH OR CHEW. Rx# [id number] Last Released: 07/14/24 Qty/Days Supply: 56/28 Rx Expiration Date: 08/11/24 Refills Remainin OUTPT MORPHINE SO4 15MG SA TAB (Status = Discontinued) TAKE ONE TABLET BY MOUTH EVERY 12 HOURS MAY CAUSE CONSTIPATION. SWALLOW WHOLE; DO NOT CRUSH OR CHEW. Rx# [id number] Last Released: 08/10/24 Qty/Days Supply: Rx Expiration Date: 09/08/24 Refills Remainin OUTPT MORPHINE SO4 15MG SA TAB (Status = Discontinued) TAKE ONE TABLET BY MOUTH EVERY 12 HOURS MAY CAUSE CONSTIPATION. SWALLOW WHOLE; DO NOT CRUSH OR CHEW. Rx# [id number] Last Released: 09/07/24 Qty/Days Supply: Rx Expiration Date: 10/05/24 Refills Remainin OUTPT MORPHINE SO4 15MG SA TAB (Status = Active) TAKE ONE TABLET BY MOUTH EVERY 12 HOURS MAY CAUSE CONSTIPATION. SWALLOW WHOLE; DO NOT CRUSH OR CHEW. THIS QUANTITY MUST LAST 28 DAYS OR MORE Rx# [id number] Last Released: 10/05/24 Qty/Days Supply: Rx Expiration Date: 11/03/24 Refills Remainin OUTPT MORPHINE SO4 IR 15MG TAB (Status = Discontinued) TAKE ONE TABLET BY MOUTH EVERY 24 HOURS (ONCE A DAY) NEEDED FOR BREAKTHROUGH PAIN THIS QUANTITY MUST LAST 28 DAYS OR MORE MAY CAUSE CONSTIPATION. Rx# [id number] Last Released: 07/14/24 Qty/Days Supply: Rx Expiration Date: 08/11/24 Refills Remainin OUTPT MORPHINE SO4 IR 15MG TAB (Status = Discontinued) TAKE ONE TABLET BY MOUTH EVERY 24 HOURS (ONCE A DAY) NEEDED FOR BREAKTHROUGH PAIN MAY CAUSE CONSTIPATION. Rx# [id number] Last Released: 08/10/24 Qty/Days Supply: Rx Expiration Date: 09/08/24 Refills Remainin OUTPT MORPHINE SO4 IR 15MG TAB (Status = Discontinued) TAKE ONE TABLET BY MOUTH EVERY 24 HOURS (ONCE A DAY) NEEDED FOR BREAKTHROUGH PAIN MAY CAUSE CONSTIPATION. Rx# [id number] Last Released: 09/07/24 Qty/Days Supply: Rx Expiration Date: 10/05/24 Refills Remainin OUTPT MORPHINE SO4 IR 15MG TAB (Status = Active) TAKE ONE TABLET BY MOUTH EVERY 24 HOURS (ONCE A DAY) NEEDED FOR BREAKTHROUGH PAIN MAY CAUSE CONSTIPATION. THIS QUANTITY MUST LAST 28 DAYS OR MORE Rx# [id number] Last Released: 10/05/24 Qty/Days Supply: Rx Expiration Date: 11/03/24 Refills Remainin OUTPT SILDENAFIL CITRATE 100MG TAB (Status = Active) TAKE ONE TABLET BY MOUTH EVERY WEEK NEEDED FOR ERECTILE DYSFUNCTION (TAKE 60 MINUTES PRIOR TO SEXUAL ACTIVITY) - LIMIT 6 DOSES PER 30 DAYS Rx# [id number] Last Released: 06/17/24 Qty/Days Supply: Rx Expiration Date: 10/29/24 Refills Remainin SUPPLIES PHARMACY TERMS AND POSSIBLE PATIENT ACTIONS INPT = [place] inpatient order IV = MA intravenous medication OUTPT = [place] outpatient prescription PHARMACY POSSIBLE PATIENT TERMS EXPLANATION ACTIONS -------- -- ACTIVE A prescription that can be If you have refills, filled at the local [place] pharmacy. you may request a refill of this prescription from your [place] pharmacy. CLINIC A medication you received during If you have questions a visit to a [place] clinic or about this medication emergency department. contact your [place] healthcare team. DISCONTINUED A prescription your provider has Contact your VA stopped. It is no longer healthcare team if you available to be sent to you or need more of this picked up at the [place] pharmacy medication. window. A prescription which is too old Contact your VA to fill. This does not refer to healthcare team if you the expiration date of the need more of this medication in the container. medication. NON-VA A medication that came from If this medication someplace other than a VA information is pharmacy. This may be a incorrect or out of prescription from either the VA date, please tell your or non VA providers that was VA healthcare team. filled outside the VA. Or, it may be an ujem-hxa-edxnkhr (OTC), herbal, dietary supplements or sample medication. ON HOLD An active prescription that will Contact your VA not be filled until pharmacy pharmacy when you need resolves the issue. more of this medication. PARKED An active prescription that will Contact your VA not be filled until the patient pharmacy when you need requests it. this medication. PENDING This prescription order has been If you have been sent to the pharmacy for review instructed to start and is not ready yet. this medication now, contact your VA pharmacy. SUSPENDED An active prescription that is Contact your [place] not scheduled to be filled yet. pharmacy if you need You should receive it before this medication now. you run out. ====== Medication list reviewed with Patient Patient/Caregiver reports taking medications as ordered. IS PATIENT TAKING ANY OVER THE COUNTER MEDICATIONS, SUCH VITAMINS OR HERBAL SUPPLEMENTS, INCLUDING ANY MEDICATIONS PRESCRIBED BY ANOTHER PHYSICIAN? Yes, List: Luzma from Dr. Mccarthy Does patient have any new allergies to report since last visit? NO VITALS: TEMPERATURE: 98.5 F [36.9 C] (11/12/2023 16:34) BP: 121/85 (11/12/2023 16:34) RESP: 18 (11/12/2023 16:34) PULSE: 72 (11/12/2023 16:34) HT: 69 in [175.3 cm] (10/29/2023 13:14) WT: 272.5 lb [123.60 kg] (11/12/2023 16:34) BMI: 40.3 PAIN ASSESSMENT: (Most Recent Pain Score in Vitals Package: 6 (10/29/2023 13:14) ) The patient indicated that they and their close contacts have not traveled outside of the [place] in the past 21 days. The patient reports the following symptoms: No symptoms present The patient is not immunocompromised. The patient does not report having a history of Multi Drug Resistant Organism (MDRO) within the last five years. The patient does not report having been exposed to measles, chickenpox, or zoster in last 30 days. STRESS: Thank you for your service. Now let us serve you. At the [facility], we strive to provide you with exceptional health care that improves your health and well-being. Are you feeling sad, empty, or depressed? No Do you need to talk about things in your life that worry you or cause you stress? No Do you need to talk about personal problems, family problems, alcohol use, drug use, or mental or emotional illness? No SUICIDE SCREENING: The patient was asked, Over the past two weeks, how often have you been bothered by thoughts that you would be better off or of hurting yourself in some way? Not At All SPIRITUAL ASSESSMENT: Are there caodaism practices or spiritual concerns you want the workday financials consultant, your physician, and other health care team members to immediately know about? No Patient advised to call the clinic for any concerns, questions, or symptoms. Patient and/or caregiver verbalized understanding of plan of care. Suicide Screen - V: C-SSRS Screening [place] Suicide Severity Rating Scale (C-SSRS) screener 1. Over the past month, have you wished you were or wished you could go to sleep and not wake up? No 2. Over the past month, have you had any actual thoughts of killing yourself? No 3. Over the past month, have you been thinking about how you might do this? Response not required due to responses to other questions. 4. Over the past month, have you had these thoughts and had some intention of acting on them? Response not required due to responses to other questions. 5. Over the past month, have you started to work out or worked out the details of how to kill yourself? Response not required due to responses to other questions. 6. If yes, at any time in the past month did you intend to carry out this plan? Response not required due to responses to other questions. 7. In your lifetime, have you ever done anything, started to do anything, or prepared to do anything to end your life (for example, collected pills, obtained a gun, gave away valuables, went to the roof but didn't jump)? Yes 8. If YES, was this within the past 3 months? No RHS Screen - VS: RHS Screen Session Format: Face to Face Environmental Check Screening was not completed at this time due to: Another adult present COVID-19 Immunization - L,N,P,PH,U: Refused Moderna Monovalent COVID-19 vaccine Immunization: COVID-19 (MODERNA), MRNA, LNP-S, PF, 50 MCG/0.5 ML (AGES 12+ YEARS) Refusal Reason: PATIENT DECISION Patient refuses all immunization(s) in the COVID-19 group Date Documented: 10/21/24 13:54 Alcohol Use Screen (AUDIT-C) - V: Alcohol Screen: SCREEN FOR ALCOHOL (AUDIT-C) An alcohol screening test (AUDIT-C) was negative (score=1). 1. How often did you have a drink containing alcohol in the past year? Consider a drink to be a 12 ounce can or bottle of regular beer, 8 ounces of malt liquor, a 5 ounce glass of table wine, or a 1.5 ounce shot of liquor (like scotch, gin, or vodka). Monthly or less 2. How many drinks containing alcohol did you have on a typical day when you were drinking in the past year? One or two drinks 3. How often did you have six or more drinks on one occasion in the past year? Never Tobacco Use Screening - AT,DE,L,M,N,P,PH,PS,RT,S,U: The patient smokes cigarettes every day. The patient has never used other types of tobacco. Patient was advised to stop smoking and/or using other tobacco products. Advised patient that a combination of behavioral counseling and FDA-approved cessation medications is the most effective way to ensure their success in stopping to smoke and/or using other tobacco products. The patient was not interested in additional information about behavioral counseling and other support strategies discussed. Informed patient that medications can help with cravings and withdrawal symptoms, and they greatly increase the chances of successfully stopping your tobacco use. The patient was not interested in a prescription for tobacco cessation medications. Hepatitis C Testing - L,N,P,PH: Patient declines HCV lab test. Homelessness/Food Insecurity Screen - DI,L,N,P,PH,PS,S,U: In the past 2 months, have you been living in stable housing that you own, rent, or stay in as part of a household? Yes - Living in stable housing. Are you worried or concerned that in the next 2 months you may NOT have stable housing that you own, rent, or stay in as part of a household? No - Not worried about housing near future The [place] reports the following: Within the past 12 months, you worried whether your food would run out before you got money to buy more. Never true Within the past 12 months, the food you bought just didn't last and you didn't have money to get more. Never true Influenza Immunization - L,N,P,PH,U: Deferral / Refusal The patient declines to receive the recommended dose of seasonal influenza vaccine. Immunization: INFLUENZA, UNSPECIFIED FORMULATION Refusal Reason: PATIENT DECISION Patient refuses all immunization(s) in the FLU group Date Documented: 10/21/24 13:56 MOVE Weight Management: Most recent BMI: 42.6. [place] educated on health risk of obesity and treatment is offered. Participation in a weight management program was considered/offered for this patient based on the current BMI score. Patient declines participation in a weight management program. Tdap Immunization - L,N,P,PH,U: The patient declines to receive the recommended dose of Tdap vaccine. Immunization: TDAP Refusal Reason: PATIENT DECISION Patient refuses all immunization(s) in the TDAP group Date Documented: 10/21/24 13:56 Pneumococcal Conjugate Vaccine (PCV15/PCV20/PCV21) - L,N,P,PH,U: Refuses PCV vaccine Immunization: PNEUMOCOCCAL CONJUGATE, UNSPECIFIED FORMULATION Refusal Reason: PATIENT DECISION Patient refuses all immunization(s) in the PneumoPCV group Date Documented: 10/21/24 13:56 Weight Control/Nutrition Counseling: * Patient declined nutrition and weight screen counseling at this encounter. Pain Assessment: - PAIN ASSESSMENT: .. This patient's last pain assessment score was: 6 (10/21/2024 11:31). A detailed pain assessment showed the following: Pain characteristics (per patient's own words) Constant, Aching, Stabbing Location of current pain Low Back, Shoulder left Onset/Duration of the current pain. Constant or variable? More than a year Pain is aggravated by: Exercise, Kneeling, Lifting, Lying down, Sitting, Standing, Walking Patient's self identified pain goal: 0 HIV Screening-Routine: Patient has been offered HIV testing and has declined. I have explained that HIV testing is recommended for all adults, even if all risk factors are absent. URINE DRUG SCREEN: Patients on chronic opioid therapy for chronic non-malignant pain are required to have an UDS at least every 6 months. In addition, documentation of verbal consent for ongoing UDS is required at least every 6 months Patient is receiving opioid from non-VA provider and is therefore excluded from having to obtain a bi-annual UDS at this facility Herpes Zoster (Shingles) Vaccine - L,N,P,PH,U: The patient declines to receive the recommended dose of zoster (shingles) vaccine. Immunization: ZOSTER RECOMBINANT Refusal Reason: PATIENT DECISION Patient refuses all immunization(s) in the ZOSTER group Date Documented: 10/21/24 13:58 Patient/Nurse Interview: * * Patient stated that adequate information was received regarding the condition and/or treatment. Comment: IF you have any questions please call the clinic Per [facility] Directive 1605.06, wristband documentation: Patient wristband was removed and destroyed by (staff name) Keith Fontenot RN and placed in the designated [employer] bin. /brenda/ Kartik Fontenot RN,BSN [place], CBOC Signed: 10/21/2024 14:00 KARTIK FONTENOT
--- OUTSIDE RECORDS SUMMARY | 2024-10-25 09:30 | XMS_ITS | Encounter Summary ---
Author Name [facility] [place] Address [address] [place] [address] Care Team Providers Care Office Services Associate Name Role Phone PATRICIA HENRY Primary Care [...] Policy Stout MEDICARE (WNR) MEDICARE (M) PART A Sep 03, 2020 PART A [id number] KLAUS CORRAL PATIENT MEDICARE (WNR) MEDICARE (M) PART B Sep 03, 2020 PART B [id number] KLAUS CORRAL PATIENT [facility] 2018 TRICA RE Aug 03, 2017 [facility] [id number] 89 KLAUS CORRAL PATIENT -FO R-LIFE [facility] LIFE Sep 03, 2020 [facility] [id number] KLAUS CORRAL PATIENT Selected Encounter This section includes the information on record at [place] for the Encounter. Date/Time Encounter Type Encounter Description Reason Provider Source Oct 25, 2024 02:30 PM ACUP 1/> WO ESTIM 1ST 15 MIN PRIMARY CARE/MEDICINE ICD-10-CM M51.16 Intervertebral disc disorders w radiculopathy, lumbar region SANTINO,TAMM Y IHE Encounter Template Text not used by [place] Assessments - Encounter Diagnoses This section includes the primary and secondary diagnoses documented for the Encounter. Date/Time Primary/Secondary Diagnosis Diagnosis Name Provider Source Oct 25, 2024 09:04 PM PRIMARY Intervertebral disc disorders w radiculopathy, lumbar region SANTINO,PATRICIA [facility] Oct 25, 2024 09:04 PM SECONDARY Pain in left shoulder [facility] Plan of Treatment: Future Appointments (+ 6 months) and Future Tests (+/- 45 days) The Plan of Treatment section includes future care activities for the patient [facility] [place] [facility] This section includes future appointments and future orders which are active, pending or scheduled. Future Appointments This section includes appointments that were scheduled to occur 6 months from the date of the Encounter, up to a maximum of 20 appointments. The data comes from all [place] treatment facilities. Appointment Date/Time Appointment Type Appointme nt Facility Name Nov 01, 2024 02:30 PM [facility] Nov 15, 2024 02:30 PM [facility] Nov 22, 2024 02:[address] [facility] 2024 02:30 PM [facility] Active, Pending, and Scheduled Orders This section includes a listing of several types of active, pending, and scheduled orders, including clinic medications orders, diagnostic test orders, procedure orders and consult orders; where the start date of the order is 45 days before the date of the Encounter or 45 days after the date of theEncounter. The data comes from all [place] treatment facilities. Test Date/Time Test Type Test Details Facility Name Sep 30, 2024 09:56 AM Consult Order [facility] MASSAGE THERAPY [id number] Cons Senior Counsel's Choice JENNIFER ANDERSEN [facility] Lab Results: +/- 30 days of the encounter This section includes the Chemistry and Hematology Lab Results on record with [place] for the patient. Radiology Reports and Pathology Reports are provided separately, in subsequent sections. Lab Results This section contains the Chemistry/Hematology Results that were resulted 30 days before or 30 daysafter the date of the Encounter. Date/Time Source Result Type Result - Unit Interpretation Reference Range Specimen Type Comment Oct 12, 2024 11:10 AM [facility] TSH (MA-PB) SERUM Specimen Type: SERUM No comment entered. Ordering Provider: PATRICIA HENRY Report Released Date/Time: Oct 12, 2024 11:09 AM Reporting Lab: [place] [facility] [address] [place] [address] Performing Lab: [place] [facility] [address] [place] [address] TSH 1.032 u[IU]/mL 0.47-5 Oct 12, 2024 11:10 AM [facility] CHOLESTEROL PANEL (PB) PLASMA Specimen Type: P LASMA No comment entered. Ordering Provider: PATRICIA HENRY Report Released Date/Time: Oct 12, 2024 11:09 AM Reporting Lab: [place] [facility] [address] [place] [address] Performing Lab: [place] [facility] [address] [place] [address] CHOLESTEROL 187 mg/dL 0-200 TRIGLYCERIDE 119 mg/dL 0-150 CALCULATED LDL 127.0 mg/dL HDL(New) 36.2 mg/dL L >40 HDL % OF TOTAL CHOLESTEROL (PB) 19.4 >25 Oct 12, 2024 11:10 AM [facility] BL[facility] Specimen Type: BLOOD No comment entered. Ordering Provider: PATRICIA HENRY Report Released Date/Time: Oct 12, 2024 11:09 AM Reporting Lab: [place] [facility] [address] [place] [address] Performing Lab: [place] [facility] [address] [place] [address] HGA1C 6.3 H 4.0-6.0 Oct 12, 2024 11:10 AM [place] [facility] CBC BLOO D Specimen Type: BLOOD No comment entered. Ordering Provider: PATRICIA HENRY Report Released Date/Time: Oct 12, 2024 11:09 AM Reporting Lab: [place] [facility] [address] [place] [address] Performing Lab: [place] [facility] [address] [place] [address] WBC 6.7 10*3/uL 3.6-11.2 RBC 5.27 10*6/uL [...] 0. 00-0.05 Oct 12, 2024 11:10 AM [facility] COMPREHENSIVE METABOLIC PANEL PLASMA Specimen Type: PLASMA No comment entered. Ordering Provider: PATRICIA HENRY Report Released Date/Time: Oct 12, 2024 11:09 AM Reporting Lab: [place] [facility] [address] [place] [address] Performing Lab: [place] [facility] [address] [place] [address] CREATININE 0.93 mg/dL 0.7-1.3 UREA NITROGEN 13 [...] U/L H 8-40 EGFR (CKD-EPI 2020) 95 Social History: Smoking Status (Most current) and Tobacco Use (All prior to encounter date) This section includes the most current, and the historical, smoking and tobacco- related health factors from the [place] facility where the Encounter took place. Current Smoking Status This section includes the most current smoking, or tobacco-related health factor, from the [place] facility where the Encounter took place. Date/Time Current Smoking Status Comment Facil ity Oct 21, 2024 11:00 AM VA-TOBACCO USE EVERY DAY CIGARET DAYAMI [facility] Tobacco Use History This section includes a history of the smoking, or tobacco-related health factors, that were collected on or before the date of the Encounter. The data comes from the [place] facility where the Encounter took place. Date/Time Smoking Status/Tobacco Use Comment F acility Oct 21, 2024 11:00 AM VA-TOBACCO SCREEN FOLLOW-UP [facility] [place] [facility] Oct 21, 2024 11:00 AM VA-TOBACCO USE ADVICE [facility] Oct 21, 2024 11:00 AM VA-TOBACCO USE SELF PAY REPRESENTATIVE NO [facility] [facility] Oct 21, 2024 11:00 AM VA-TOBACCO USE EVERY DAY CIGARET DAYAMI [facility] [facility] Oct 21, 2024 11:00 AM VA-TOBACCO USE MED NO [facility] Oct 29, 2023 01:00 PM VA-TOBACCO USE 30 YEARS OR MORE [facility] Oct 29, 2023 01:00 PM VA-TOBACCO USE ADVICE [facility] Oct 29, 2023 01:00 PM VA-TOBACCO USE SELF PAY REPRESENTATIVE NO [facility] [facility] Oct 29, 2023 01:00 PM VA-TOBACCO USE MED NO [facility] [facility] Oct 29, 2023 01:00 PM VA-TOBACCO USE WI 30 MIN OF WAKE UP [facility] [facility] Oct 29, 2023 01:00 PM [...] Nov 06, 2022 02:00 PM VA-TOBACCO USE SELF PAY REPRESENTATIVE NO [facility] Nov 06, 2022 02:00 PM VA-TOBACCO USE MED NO [place] Nov 06, 2022 02:00 PM VA-TOBACCO USER EVERY DAY [facility] Sep 09, 2021 02:31 PM VA-TOBACCO USE > 1 5 LESS THAN 30 YEARS [facility] Sep 09, 2021 02:31 PM VA-TOBACCO USE ADVICE [facility] Sep 09, 2021 02:31 PM VA-TOBACCO USE SELF PAY REPRESENTATIVE NO [place] [facility] Sep 09, 2021 02:31 PM VA-TOBACCO USE MED NO [facility] Sep 09, 2021 02:31 PM VA-TOBACCO USE WI 30 MIN OF WAKE UP [facility] Sep 09, 2021 02:31 PM VA-TOBACCO USER EVERY DAY [facility] [place] [facility] Sep 06, 2008 11:00 PM IC/PATIENT IS SMOKER [facility] Sep 06, 2008 11:00 PM PATIENT NOT GIVEN TOBACCO HANDOU T [facility] Advance Directives: All historical and current Section Date Range: From patient's date of to the date document was created. This section includes ALL of a patient's completed or amended [place] Advance and Rescinded Directives. The entries below indicate that a directive exists for the patient, but an actual copy is not included with this document. The data comes from all [place] facilities. Date Advance Directives Provider Source Nov 25, 2004 ADVANCE DIRECTIVE LINDA ALDRIDGE [facility] Encounter Notes: All associated encounter notes This section contains the clinical notes associated to the Encounter. Date/Time Encounter Note(s) Provider Source Oct 25, 2024 09:00 PM [facility] NOTE: LOCAL TITLE: [place] ACUPUNCTURE NOTE STANDARD TITLE: [facility] NOTE DATE OF NOTE: OCT 25, 2024@21:00 ENTRY DATE: OCT 25, 2024@21:00:06 AUTHOR: PATRICIA HENRY COSIGNER: URGENCY: STATUS: COMPLETED Initial visit [place] Acupuncture was the only treatment given. Patient was evaluated and agreed to receive [place] Acupuncture (BFA). Patient was evaluated and agreed to receive [place] Acupuncture Protocol (BFA) for the following pain condition(s): Comment: Lower back left shoulder Pre BFA Pain Numeric Rating Scale of site with highest pain: 6 The patient was asked the following questions: During the past 24 hours, how much has your pain interfered with your usual activity? 5 During the past 24 hours, how much has your pain interfered with your usual sleep? 9 During the past 24 hours, how much has the pain affected your usual mood? 5 During the past 24 hours, how much has pain contributed to your stress? 9 Oral informed consent obtained for BFA. Procedure: Ear was prepped with alcohol Needle type: Adhesive press tacks 0.9mm The following points were placed: All 10 points in both ears Complications: Patient tolerated well, without any complications. Post treatment Numeric Pain Rating Scale: 10% standard [id number] time for application of BFA protocol is 15 minutes. No electrical stimulation was used. Face to face time spent durin gthis procedure in the delivery of BFA was [...] tape that holds the needle in place. -[place] must be placed in a sharps container [...] visit dates/details: lisha /brenda/ Patricia Henry MD [facility] Primary Care Signed: 10/25/2024 21:04 PATRICIA HENRY [facility]
--- OUTSIDE RECORDS SUMMARY | 2024-11-22 09:30 | XMS_ITS | Encounter Summary ---
Author Name [facility] [place] Address [address] [place] [address] Care Team Providers Care Veterinary Radiologist Name Role Phone PATRICIA HENRY Primary Care [...] PART B Sep 03, 2020 PART B [id number] KLAUS CORRAL PATIENT MEDICARE (WNR) MEDICARE (M) PART A Sep 03, 2020 PART A [id number] KLAUS CORRAL PATIENT [facility] 2018 TRICA RE Aug 03, 2017 [facility] [id number] KLAUS CORRAL PATIENT -FO R-LIFE [facility] RE FOR LIFE Sep 03, 2020 [facility] [id number] 89 KLAUS CORRAL PATIENT Selected Encounter This section includes the information on record at [place] for the Encounter. Date/Time Encounter Type Encounter Description Reason Provider Source Nov 22, 2024 02:30 PM ACUP 1/> WO ESTIM 1ST 15 MIN PRIMARY CARE/MEDICINE ICD-10-CM M54.50 Low back pain, unspecified PATRICIA HENRY Encounter Template Text not used by [place] Assessments - Encounter Diagnoses This section includes the primary and secondary diagnoses documented for the Encounter. Date/Time Primary/Secondary Diagnosis Diagnosis Name Provider Source Nov 30, 2024 11:32 AM PRIMARY Low back pain, unspecified [facility] [place] [facility] Nov 30, 2024 11:32 AM SECONDARY Cervicalgia [facility] [place] [facility] Plan of Treatment: Future Appointments (+ 6 months) and Future Tests (+/- 45 days) The Plan of Treatment section includes future care activities for the patient from all [place] treatmentfacilities. This section includes future appointments and future orders which are active, pending or scheduled. Future Appointments This section includes appointments that were scheduled to occur 6 months from the date of the Encounter, up to a maximum of 20 appointments. The data comes from all [place] treatment facilities. Appointment Date/Time Appointment Type Appointme nt Facility Name 2024 02:30 PM [facility] [place] [facility] December 06, 2024 02:30 PM [facility] [place] [facility] December 13, 2024 02:30 PM [facility] [place] [facility] December 20, 2024 02:30 PM [facility] [place] [facility] December 27, 2024 02:30 PM [facility]ORY - MEDICINE [facility] Jan 03, 2025 02:30 PM [facility]ORY - MEDICINE [facility] Jan 12, 2025 01:00 PM [facility] [place] [facility] Jan 17, 2025 09:30 AM [facility]ORY - MEDICINE [facility] Jan 17, 2025 10:00 AM [facility] MEDICINE [facility] Jan 24, 2025 03:00 PM [facility] [facility] Jan 31, 2025 02:30 PM AM[facility]ULATORY - MEDICINE [facility] Feb 07, 2025 02:30 PM [facility]ORY - MEDICINE [facility] Mar 08, 2025 02:15 PM [facility] [place] [facility] Active, Pending, and Scheduled Orders This section includes a listing of several types of active, pending, and scheduled orders, including clinic medications orders, diagnostic test orders, procedure orders and consult orders; where the start date of the order is 45 days before the date of the Encounter or 45 days after the date of theEncounter. The data comes from all [place] treatment facilities. Test Date/Time Test Type Test Details Facility Name December 08, 2024 10:28 AM Consult Order [facility] [id number] Cons Home Health Aide Caregiver's Choice [facility] Social History: Smoking Status (Most current) and Tobacco Use (All prior to encounter date) This section includes the most current, and the historical, smoking and tobacco- related health factors from the [place] facility where the Encounter took place. Current Smoking Status This section includes the most current smoking, or tobacco-related health factor, from the [place] facility where the Encounter took place. Date/Time Current Smoking Status Comment Facil ity Oct 21, 2024 11:00 AM VA-TOBACCO USE EVERY DAY CIGARET DAYAMI [facility] Tobacco Use History This section includes a history of the smoking, or tobacco-related health factors, that were collected on or before the date of the Encounter. The data comes from the [place] facility where the Encounter took place. Date/Time Smoking Status/Tobacco Use Comment F acility Oct 21, 2024 11:00 AM VA-TOBACCO SCREEN FOLLOW-UP [facility] Oct 21, 2024 11:00 AM VA-TOBACCO USE ADVICE [facility] Oct 21, 2024 11:00 AM VA-TOBACCO USE INSURANCE SALES AGENT NO [facility] Oct 21, 2024 11:00 AM VA-TOBACCO USE EVERY DAY CIGARET DAYAMI [facility] Oct 21, 2024 11:00 AM VA-TOBACCO USE MED NO [facility] Oct 29, 2023 01:00 PM VA-TOBACCO USE 30 YEARS OR MORE [facility] Oct 29, 2023 01:00 PM VA-TOBACCO USE ADVICE [facility] Oct 29, 2023 01:00 PM VA-TOBACCO USE INSURANCE SALES AGENT NO [facility] Oct 29, 2023 01:00 PM VA-TOBACCO USE MED NO [facility] Oct 29, 2023 01:00 PM VA-TOBACCO USE WI 30 MIN OF WAKE UP [place] [facility] Oct 29, 2023 01:00 PM [...] Nov 06, 2022 02:00 PM VA-TOBACCO USE INSURANCE SALES AGENT NO [place] [facility] Nov 06, [...] Sep 09, 2021 02:31 PM VA-TOBACCO USE INSURANCE SALES AGENT NO [place] [facility] Sep 09, 2021 02:31 PM VA-TOBACCO USE MED NO [place] [facility] Sep 09, 2021 02:31 PM VA-TOBACCO USE WI 30 MIN OF WAKE UP [place] [facility] Sep 09, 2021 02:31 PM VA-TOBACCO USER EVERY DAY [place] [facility] Sep 06, 2008 11:00 PM IC/PATIENT IS SMOKER [facility] Sep 06, 2008 11:00 PM PATIENT NOT GIVEN TOBACCO HANDOU T [facility] Advance Directives: All historical and current Section Date Range: From patient's date of to the date document was created. This section includes ALL of a patient's completed or amended [place] Advance and Rescinded Directives. The entries below indicate that a directive exists for the patient, but an actual copy is not included with this document. The data comes from all [place] facilities. Date Advance Directives Provider Source Nov 25, 2004 ADVANCE DIRECTIVE LINDA ALDRIDGE [facility] Radiology Reports: +/- 30 days of the encounter Radiology Reports For cases when an order for radiology services may have been completed prior to the date of the Encounter, the report list includes the Radiology Reports that were completed up to 30 days before dateof the Encounter. For cases when an order for radiology services may have been completed after the date of the Encounter, the report list also includes the Radiology Reports that were completed up to30 days after date of the Encounter. The data comes from all [place] treatment facilities. Date/Time Radiology Report Provider Source December 07, 2024 12:31 PM SPINE LUMBOSACRAL 2 OR 3 VIEWS: ROBERTO CARLOS CORRAL [id number] -[id number] M Exm Date: DECEMBER 07, 2024@12:31 Req Phys: PATRICIA HENRY Pat Loc: PB-[facility] ALT THER BFA GRP ECHO ( Img Loc: PB-XRAY [place] Service: [place] [address] (Case [id number] COMPLETE) SPINE LUMBOSACRAL 2 OR 3 VIEWS (RAD Detailed) CPT:68356 Reason for Study: Pain referral Clinical History: Report Status: Verified Date Reported: DECEMBER 07, 2024 Date Verified: DECEMBER 07, 2024 Proj Engineer E-Sig: Report: EXAM: Lumbar spine AP, lateral, and coned lateral views. FINDINGS: There is no acute fracture or dislocation. There are osseous degenerative changes. There is narrowing of the disc spaces at the L3-4 and L4-5 levels. There is also degenerative change involving the lower thoracic spine. There is very mild scoliosis. There is calcified atherosclerotic change involving the abdominal aorta. Impression: 1. No evidence of acute osseous injury involving the lumbar spine. 2. Osseous degenerative changes. 3. Narrowed disc spaces at the L3-4 and L4-5 levels. 4. Very mild scoliosis. 5. Calcified atherosclerotic change involving the abdominal aorta. Primary Interpreting Staff: Lauri Gonzalez M.D., Radiology (Proj Engineer, no e-sig) /LAURI ESPINAL [facility] Encounter Notes: All associated encounter notes This section contains the clinical notes associated to the Encounter. Date/Time Encounter Note(s) Provider Source Nov 22, 2024 02:30 PM [facility] NOTE: LOCAL TITLE: [place] ACUPUNCTURE NOTE STANDARD TITLE: [facility] NOTE DATE OF NOTE: NOV 22, 2024@14:30 ENTRY DATE: NOV 30, 2024@07:56:31 AUTHOR: PATRICIA HENRY EXP COSIGNER: URGENCY: STATUS: COMPLETED Initial visit [place] Acupuncture was the only treatment given. Patient was evaluated and agreed to receive [place] Acupuncture (BFA). Patient was evaluated and agreed to receive [place] Acupuncture Protocol (BFA) for the following pain condition(s): Comment: Lower back and neck Pre BFA Pain Numeric Rating Scale of [...] has the pain affected your usual mood? 7 During the past 24 hours, how much has pain contributed to your stress? 7 Oral informed consent obtained for BFA. Procedure: Ear was prepped with alcohol Needle type: Adhesive press tacks 1.5 mm The following points were placed: All 10 points in both ears Complications: Patient tolerated well, without any complications. Post treatment Numeric Pain Rating Scale: 20%; but reports sleep much better standard [id number] time for application of BFA protocol is [...] tape that holds the needle in place. -[place] must be placed in a sharps container [...] visit dates/details: lisha /brenda/ Patricia Henry MD [facility] Primary Care Signed: 11/30/2024 07:57 PATRICIA HENRY [facility]
--- OUTSIDE RECORDS SUMMARY | 2025-01-17 04:30 | XMS_ITS | Encounter Summary ---
Author Name [facility] [facility] [place] Address [address] [place] [place] [address] Care Team Providers Care Front End Developer Javascript Html Css Name Role Phone PATRICIA HENRY Primary Care [...] PART A Sep 03, 2020 PART A [id number] KLAUS CORRAL PATIENT MEDICARE (WNR) MEDICARE (M) PART B Sep 03, 2020 PART B [id number] KLAUS CORRAL PATIENT [place] 2018 [place] RE Aug 03, 2017 [facility] [id number] KLAUS CORRAL PATIENT -FO R-LIFE TRICA RE FOR LIFE Sep 03, 2020 [facility] [id number] KLAUS CORRAL PATIENT Selected Encounter This section includes the information on record at [place] for the Encounter. Date/Time Encounter Type Encounter Description Reason Provider Source Jan 17, 2025 09:30 AM OFFICE O/P EST LOW 20 MIN PRIMARY CARE/MEDICINE ICD-10-CM M51.16 Intervertebral disc disorders w radiculopathy, lumbar region SANTINO,TAMM Y IHE Encounter Template Text not used by VA Assessments - Encounter Diagnoses This section includes the primary and secondary diagnoses documented for the Encounter. Date/Time Primary/Secondary Diagnosis Diagnosis Name Provider Source Jan 17, 2025 09:51 AM PRIMARY Intervertebral disc disorders w radiculopathy, lumbar region SANTINO,PATRICIA [facility] Jan 17, 2025 09:51 AM SECONDARY Pain in left shoulder PATRICIA HENRY [facility] Jan 17, 2025 09:51 AM SECONDARY Unilateral primary osteoarthritis, right knee SANTINO,[facility] Plan of Treatment: Future Appointments (+ 6 months) and Future Tests (+/- 45 days) The Plan of Treatment section includes [facility] care activities for the [facility] This section includes future appointments and future orders which are active, pending or scheduled. Future Appointments This section includes appointments that were scheduled to occur 6 months from the date of the Encounter, up to a maximum of 20 appointments. The data comes from all [place] treatment facilities. Appointment Date/Time Appointment Type Appointme nt Facility Name Jan 24, 2025 03:00 PM AMBULATORY - MEDICINE [facility] Jan 31, 2025 02:30 PM AMBULATORY - MEDICINE [facility] Feb 07, 2025 02:30 PM AMBULATORY - MEDICINE [facility] Mar 08, 2025 02:15 PM AMBULATORY - MEDICINE [facility] Active, Pending, and Scheduled Orders This section includes a listing of several types of active, pending, and scheduled orders, including clinic medications orders, diagnostic test orders, procedure orders and consult orders; where the start date of the order is 45 days before the date of the Encounter or 45 days after the date of theEncounter. The data comes from all [place] treatment [facility]. Test Date/Time Test Type Test Details Facility Name December 08, 2024 10:28 AM Consult Order [facility] [id number] Cons Professor Of Sociology's Choice [facility] Vital Signs: All taken on the encounter date This section contains inpatient and outpatient Vital Signs collected on the date of the Encounter. Date/Time Temperature Pulse Blood Pressure Respiratory Rate SP02 Pain Height Weight Body Mass Index Source Jan 17, 2025 09:26 AM 73 /min 149/64 mm[Hg] 97 % [facility] Jan 17, 2025 09:24 AM 97.9 F 72 /min 148/79 mm[Hg] 18 /min 97 % 8 69.0 in 263.7 lb 39 [facility] Social History: Smoking Status (Most current) and Tobacco Use (All prior to encounter date) This section includes the most current, and the historical, smoking and tobacco- related health factors from the [place] facility where the Encounter took place. Current Smoking Status This section includes the most current smoking, or tobacco-related health factor, from the [place] facility where the Encounter took place. Date/Time Current Smoking Status Comment Facil ity Oct 21, 2024 11:00 AM VA-TOBACCO USE EVERY DAY CIGARET DAYAMI [facility] Tobacco Use History This section includes a history of the smoking, or tobacco-related health factors, that were collected on or before the date of the Encounter. The data comes from the [place] facility where the Encounter took place. Date/Time Smoking Status/Tobacco Use Comment F acility Oct 21, 2024 11:00 AM VA-TOBACCO SCREEN FOLLOW-UP [facility] Oct 21, 2024 11:00 AM VA-TOBACCO USE ADVICE [facility] Oct 21, 2024 11:00 AM VA-TOBACCO USE APPRENTICE PLUMBER NO [facility] Oct 21, 2024 11:00 AM VA-TOBACCO USE EVERY DAY CIGARET DAYAMI [facility] Oct 21, 2024 11:00 AM VA-TOBACCO USE MED NO [facility] Oct 29, 2023 01:00 PM VA-TOBACCO USE 30 YEARS OR MORE [facility] Oct 29, 2023 01:00 PM VA-TOBACCO USE ADVICE [facility] Oct 29, 2023 01:00 PM VA-TOBACCO USE APPRENTICE PLUMBER NO [facility] Oct 29, 2023 01:00 PM VA-TOBACCO USE MED NO [facility] Oct 29, 2023 01:00 PM VA-TOBACCO USE WI 30 MIN OF WAKE UP [facility] Oct 29, 2023 01:00 PM [...] Nov 06, 2022 02:00 PM VA-TOBACCO USE APPRENTICE PLUMBER NO [facility] Nov 06, [...] Sep 09, 2021 02:31 PM VA-TOBACCO USE APPRENTICE PLUMBER NO [facility] Sep 09, 2021 02:31 PM VA-TOBACCO USE MED NO [facility] Sep 09, 2021 02:31 PM VA-TOBACCO USE WI 30 MIN OF WAKE UP [facility] Sep 09, 2021 02:31 PM VA-TOBACCO USER EVERY DAY [facility] Sep 06, 2008 11:00 PM IC/PATIENT IS SMOKER [facility] Sep 06, 2008 11:00 PM PATIENT NOT GIVEN TOBACCO HANDOU T [facility] Advance Directives: All historical and current Section Date Range: From patient's date of to the date document was created. This section includes ALL of a patient's completed or amended [place] Advance and Rescinded Directives. The entries below indicate that a directive exists for the patient, but an actual copy is not included with this document. The data comes from all [place] facilities. Date Advance Directives Provider Source Nov 25, 2004 ADVANCE DIRECTIVE LINDA ALDRIDGE [facility] Radiology Reports: +/- 30 days of the [...] the Encounter. The data comes from all [place] treatment facilities. Date/Time Radiology Report Provider Source Jan 17, 2025 09:38 AM KNEE,RIGHT 3 VIEWS : ROBERTO CARLOS CORRAL [id number] -[id number] M Exm Date: JAN 17, 2025@09:38 Req Phys: STAS HENRYMY Pat Loc: PB-ELIN PACT ECHO PCP (Req'g Lo Img Loc: PB-XRAY [facility] Service: [place] [address] (Case [id number] COMPLETE) KNEE,RIGHT 3 VIEWS (RAD Detailed) CPT:07899 Proc Modifiers : RIGHT Reason for Study: right knee Clinical History: Report Status: Verified Date Reported: JAN 17, 2025 Date Verified: JAN 17, 2025 Guest Experience Representative E-Sig: Report: Right knee 3 views. HISTORY: Chronic worsening of right knee pain. DATE: 01/17/2025 9:39 AM FINDINGS: There are degenerative changes present. Mild narrowing lateral compartment. Possible old trauma proximal tibia. 2 small exostoses involving the posterior proximal shaft of the tibia. No evidence of acute fracture or dislocation. Impression: 1. Mild degenerative arthritis 2. 2 small exostoses involving the posterior proximal shaft of the tibia Primary Interpreting Staff: CHEN NORRIS, RADIOLOGIST (Guest Experience Representative, no e-sig) /CHEN Rodgers [facility] Encounter Notes: All associated encounter notes This section contains the clinical notes associated to the Encounter. Date/Time Encounter Note(s) Provider Source Jan 17, 2025 10:55 AM ORTHOTICS PROSTHETICS EDUCATION NOTE: LOCAL TITLE: NURSING PROSTHETIC ITEM PATIENT EDUCATION NOTE PB STANDARD TITLE: ORTHOTICS PROSTHETICS EDUCATION NOTE DATE OF NOTE: JAN 17, 2025@10:55 ENTRY DATE: JAN 17, 2025@10:56:01 AUTHOR: ALMITA GARCES EXP COSIGNER: URGENCY: STATUS: COMPLETED Prosthetic Patient Education Learner: Patient Method: Individual Evaluation of Learning: Able to Perform/Verbalize Items: Knee Brace Fitting Open knee wrap and all straps Position wrap with velez on inside and line up condyle pads slightly above knee. Fasten support straps beginning with most distal to desired comfort level Fasten remaining support straps. Care and Maintenance Wear your brace as prescribed. Maintaining and cleaning the knee brace will help extend its life. When braces are not cleaned regularly they not only start to smell bad, but they also can sometimes cause health problems, such as skin infections like ringworm and even staph infections. Wearing a brace will increase your body temperature in that region, causing moisture to accumulate. Over time, this can cause skin deterioration. If you're not being active, you should take off the brace to allow your skin and the brace to dry out. Clean your brace every two to three days unless your gardening, exercising or engaging in some other activity that would get the brace especially dirty or sweaty. The brace should be cleaned after that activity. For athletic braces that get heavy use, you can also spray them lightly with disinfectant and allow them to air-dry. To wash the brace, use a mild soap and warm water. Allow the brace to air-dry. Do not use hot temperatures to wash or dry. Inspect straps regularly for wear and tear. Any time there's tearing of straps or seams are coming undone, that's a good indicator that the brace has reached the end of its life. Also, the fit of the brace can change, either due to wear and tear or due to changes in our bodies. If the brace has become too loose or too tight, that's a sign that you should inspect it closely and possibly replace it. A copy of this document was provided to the patient. /brenda/ ALMITA GARCES LPN [facility] Signed: 01/17/2025 10:58 ALMITA GARCES [facility] Jan 17, 2025 09:51 AM INTEGRATIVE HEALTH NOTE: LOCAL TITLE: [place] ACUPUNCTURE NOTE STANDARD TITLE: INTEGRATIVE HEALTH NOTE DATE OF NOTE: JAN 17, 2025@09:51 ENTRY DATE: JAN 17, 2025@09:51:32 AUTHOR: PATRICIA HENRY COSIGNER: URGENCY: STATUS: COMPLETED Follow-up visit [place] Acupuncture was the only treatment given. Patient was evaluated and agreed to receive [place] Acupuncture (BFA). Patient was evaluated and agreed to receive [place] Acupuncture Protocol (BFA) for the following pain condition(s): Comment: Lower back and neck, left shoulder, right knee Pre BFA Pain Numeric Rating Scale of site with highest pain: 8 The patient was asked the following questions: During the past 24 hours, how much has your pain interfered with your usual activity? 6 During the past 24 hours, how much has your pain interfered with your usual sleep? 6 During the past 24 hours, how much has the pain affected your usual mood? 6 Dring the past 24 hours, how much has pain contributed to your stress? 6 Oral informed consent obtained for BFA. Procedure: Ear was prepped with alcohol Needle type: Adhesive press tacks 1.0 mm The following points were placed: All 10 points in both ears Complications: Patient tolerated well, without any complications. Post treatment Numeric Pain Rating Scale: 20%; but reports sleep much better standard [id number] time for application of BFA protocol is [...] tape that holds the needle in place. -Brewster must be placed in a sharps container [...] should your condition worsen. Future visit dates/details: meren /brenda/ Patricia Henry MD [facility] Primary Care Signed: 01/17/2025 09:52 PATRICIA HENRY [facility] Jan 17, 2025 09:32 AM PRIMARY CARE PROGRESS NOTE: LOCAL TITLE: PRIMARY CARE CLINIC PROGRESS NOTE PB STANDARD TITLE: PRIMARY CARE PROGRESS NOTE DATE OF NOTE: JAN 17, 2025@09:32 ENTRY DATE: JAN 17, 2025@09:32:11 AUTHOR: PATRICIA HENRY EXP COSIGNER: URGENCY: STATUS: COMPLETED CC: Right knee pain HPI: Patient reports for the last 3 weeks both knees have been bothering him some but the right knee especially just been weak and sore especially on the medial aspect has been swollen at times just feels like a tight balloon. He is taking his ibuprofen and tried to stretch it out heat and ice without any relief. He denies any injury to precipitate this. He is interested in possibly a brace to help. Non-VA Primary Care Provider None Specialty Services none FAMILY HX: Mother is living, Breast cancer age - 83 Father- unknown Sister- Costello's syndrome SOCIAL HX: MARITAL STATUS: , Raquel WORK HX: retired, [employer] HOBBIES: Odom, fish, woodworking TOBACCO: + 1ppd ALCOHOL: occ DRUGS: no HX: BRANCH: [employer] [id number]. 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 OVERSEAS STATIONS/DEPLOYMENTS: [place], [place], [place], [place], [place], [place] MAJOR ACCIDENTS OR INJURIES WHILE ON ACTIVE DUTY: SURGICAL HX: laminectomy L3/4 discectomy lumbar wisdom teeth Problem List 1) Polyp Colon ([facility] [id number]) 2) Cyclothymia 3) Degeneration of Lumbar Intervertebral Disc ([facility] [id number]) 4) Steatosis of liver 5) Major depressive disorder 6) Hematuria 7) Internal hemorrhoids 8) Sleep Apnea ([facility] [id number]) 9) Obesity ([facility] [id number]) 10) Chronic post-traumatic stress disorder 11) HTN - Hypertension ([facility] [id number]) 12) Erectile Dysfunction ([facility] [id number]) 13) Prediabetes ([facility] [id number]) 14) Unifocal premature ventricular complexes 15) Cigarette smoker 16) Prediabetes ([facility] [id number]) 17) Multiple seborrheic keratoses 18) Left shoulder pain 19) Cervicalgia Active Outpatient Medications (including Supplies): Active Outpatient [...] INFLAMMATION. TAKE WITH FOOD. 4) MORPHINE SO4 IR 15MG TAB TAKE ONE TABLET BY MOUTH EVERY 24 ACTIVE HOURS (ONCE A DAY) NEEDED FOR BREAKTHROUGH PAIN THIS QUANTITY MUST LAST 28 DAYS OR MORE MAY CAUSE CONSTIPATION. Active Non-VA Medications Status 1) Non-VA CARISOPRODOL 350MG TAB 350MG BY MOUTH THREE TIMES A ACTIVE DAY NEEDED 5 Total Medications OBJECTIVE: Vital Signs Temperature: 97.9 F [36.6 C] (01/17/2025 09:24) Respiratory Rate: 18 (01/17/2025 09:24) Pulse Rate: 73 (01/17/2025 09:26) Blood Pressure: 149/64 (01/17/2025 09:26) HT: 69.0 in [175.3 cm] (01/17/2025 09:24) WT: 263.7 lb [119.61 kg] (01/17/2025 09:24) BMI: 39.0 97% (01/17/2025 09:26) Physical Exam General: NAD noted, A&Ox3, pleasant, appears stated age HEENT: NCAT, TM's clear, nares and oropharynx clear Neck: Supple with normal active ROM, without any lymphadenopathy Heart: RRR, no murmur, clicks, or rub Resp: Lungs CTA bilaterally, respirations even and unlabored Abdomen: Soft, non-distended, non-tender Ext: No clubbing, cyanosis, edema; bilateral knees with degenerative changes minimal effusion of the right knee very tender to touch no warmth or erythema. X-rays today does show degenerative changes with medial narrowing Neuro: Grossly intact Psych: Affect normal, answers questions appropriately throughout visit Assessment/Plan: Osteoarthritis bilateral knees right greater than left-we will continue supportive care ice and/or heat as needed topical rubs brace given for added support continue with ibuprofen every 8 hours as needed. He was also given BFA today. Follow-up: As scheduled and/or as needed. Discussed with patient that [...] appointments. Medications Reconciled. See AVS given to [place]. Time spent 30 minutes. /brenda/ Patricia Henry MD [facility] Signed: 01/17/2025 09:51 PATRICIA HENRY [facility] Jan 17, 2025 09:19 AM PRIMARY CARE NURSING NOTE: LOCAL TITLE: PRIMARY CARE NURSING PROGRESS NOTE (TEXT) NURSING P STANDARD TITLE: PRIMARY CARE NURSING NOTE DATE OF NOTE: JAN 17, 2025@09:19 ENTRY DATE: JAN 17, 2025@09:19:29 AUTHOR: ALMITA GARCES EXP COSIGNER: URGENCY: STATUS: COMPLETED Established Patient ROBERTO CARLOS CORRAL IS A 59 YEAR OLD MALE BEING SEEN IN CLINIC JAN 17, 2025. REASON FOR VISIT: [place] here for c/o right knee pain x 3 weeks, and BFA Are you receiving care any where other than the VA? No HEALTH AND SURGICAL HISTORY: Does patient report using home oxygen? No CURRENT ACTIVE MEDICATIONS FOR REVIEW: If the list for review does not include a component, then it was not applicable to this patient. Allergies/ADRs (Tool #5) FACILITY ALLERGY/ADR -------- [facility] TETRACYCLINE [facility] TETRACYCLINE [facility] TETRACYCLINE Med. Reconciliation (Tool #1) INCLUDED IN THIS LIST: Alphabetical list of active outpatient prescriptions dispensed from this VA (local) and dispensed from another [place] or DoD facility (remote) as well as inpatient orders (local pending and active), local clinic medications, locally documented non-VA medications, and local prescriptions that have or been discontinued in the past 90 days. Non-VA Meds Last Documented On: Oct 21, 2024 NOTE The display of VA prescriptions dispensed from another [place] or DoD facility (remote) is limited to active outpatient prescription entries matched to National Drug File at the originating site and may not include some items such as investigational drugs, compounds, etc. NOT INCLUDED IN THIS LIST: Medications self-entered by the patient into personal health records (i.e. [employer]) are NOT included in this list. Non-VA medications documented outside this [place], remote inpatient orders (regardless of status) and remote clinic medications are NOT included in this list. The patient and provider must always discuss medications the patient is taking, regardless of where the medication was dispensed or obtained. Non-VA CARISOPRODOL 350MG TAB TAKE ONE TABLET BY MOUTH THREE TIMES A DAY NEEDED IN RX: Patient wants to buy from Non-IN pharmacy IN RX: Medication prescribed by Non-VA provider OUTPT CHOLECALCIF 50MCG (D3-2,000UNIT) TAB (Status = Discontinued) TAKE TWO TABLETS BY MOUTH ONCE A DAY FOR VITAMIN D DEFICIENCY. Rx# [id number] Last Released: 11/02/23 Qty/Days Supply: 200/90 Rx Expiration Date: 10/29/24 Refills Remainin OUTPT CHOLECALCIF 50MCG (D3-2,000UNIT) TAB (Status = Active) TAKE TWO TABLETS BY MOUTH ONCE A DAY FOR VITAMIN D DEFICIENCY. Rx# [id number] Last Released: 01/10/25 Qty/Days Supply: 200/90 Rx Expiration Date: 11/04/25 Refills Remainin OUTPT HYDROCHLOROTHIAZIDE 25MG TAB (Status = Discontinued) TAKE ONE TABLET BY MOUTH ONCE A DAY FOR BLOOD PRESSURE Rx# [id number] Last Released: 07/04/24 Qty/Days Supply: 90/ Rx Expiration Date: 10/29/24 Refills Remainin OUTPT HYDROCHLOROTHIAZIDE 25MG TAB (Status = Active) TAKE ONE TABLET BY MOUTH ONCE A DAY FOR BLOOD PRESSURE Rx# [id number] Last Released: 01/09/25 Qty/Days Supply: 90/90 Rx Expiration Date: 11/04/25 Refills Remainin OUTPT IBUPROFEN 800MG TAB (Status = Discontinued) TAKE ONE TABLET BY MOUTH EVERY 6 HOURS NEEDED FOR PAIN OR INFLAMMATION. TAKE WITH FOOD. Rx# [id number] Last Released: 06/07/24 Qty/Days Supply: 100/30 Rx Expiration Date: 10/29/24 Refills Remainin OUTPT IBUPROFEN 800MG TAB (Status = Active) TAKE ONE TABLET BY MOUTH EVERY 6 HOURS NEEDED FOR PAIN OR INFLAMMATION. TAKE WITH FOOD. Rx# [id number] Last Released: 11/30/24 Qty/Days Supply: Rx Expiration Date: 11/04/25 Refills Remainin OUTPT MORPHINE SO4 15MG SA TAB (Status = Discontinued) TAKE ONE TABLET BY MOUTH EVERY 12 HOURS MAY CAUSE CONSTIPATION. SWALLOW WHOLE; DO NOT CRUSH OR CHEW. THIS QUANTITY MUST LAST 28 DAYS OR MORE Rx# [id number] Last Released: 10/05/24 Qty/Days Supply: Rx Expiration Date: 11/03/24 Refills Remainin OUTPT MORPHINE SO4 15MG SA TAB (Status = Discontinued) TAKE ONE TABLET BY MOUTH EVERY 12 HOURS MUST LAST 28 DAYS MAY CAUSE CONSTIPATION. SWALLOW WHOLE; DO NOT CRUSH OR CHEW. Rx# [id number] Last Released: 11/01/24 Qty/Days Supply: Rx Expiration Date: 12/01/24 Refills Remainin OUTPT MORPHINE SO4 15MG SA TAB (Status = Discontinued) TAKE ONE TABLET BY MOUTH EVERY 12 HOURS MAY CAUSE CONSTIPATION. SWALLOW WHOLE; DO NOT CRUSH OR CHEW. Rx# [id number] Last Released: 11/30/24 Qty/Days Supply: Rx Expiration Date: 12/29/24 Refills Remainin OUTPT MORPHINE SO4 15MG SA TAB (Status = Discontinued) TAKE ONE TABLET BY MOUTH EVERY 12 HOURS MAY CAUSE CONSTIPATION. SWALLOW WHOLE; DO NOT CRUSH OR CHEW. Rx# [id number] Last Released: Qty/Days Supply: Rx Expiration Date: 01/26/25 Refills Remainin OUTPT MORPHINE SO4 IR 15MG TAB (Status = Discontinued) TAKE ONE TABLET BY MOUTH EVERY 24 HOURS (ONCE A DAY) NEEDED FOR BREAKTHROUGH PAIN MAY CAUSE CONSTIPATION. THIS QUANTITY MUST LAST 28 DAYS OR MORE Rx# [id number] Last Released: 10/05/24 Qty/Days Supply: Rx Expiration Date: 11/03/24 Refills Remainin OUTPT MORPHINE SO4 IR 15MG TAB (Status = Discontinued) TAKE ONE TABLET BY MOUTH EVERY 24 HOURS (ONCE A DAY) NEEDED FOR BREAKTHROUGH PAIN MAY CAUSE CONSTIPATION. MUST LAST 28 DAYS Rx# [id number] Last Released: 11/01/24 Qty/Days Supply: Rx Expiration Date: 12/01/24 Refills Remainin OUTPT MORPHINE SO4 IR 15MG TAB (Status = Discontinued) TAKE ONE TABLET BY MOUTH EVERY 24 HOURS (ONCE A DAY) NEEDED FOR BREAKTHROUGH PAIN THIS QUANTITY MUST LAST 28 DAYS OR MORE MAY CAUSE CONSTIPATION. Rx# [id number] Last Released: 11/30/24 Qty/Days Supply: Rx Expiration Date: 12/29/24 Refills Remainin OUTPT MORPHINE SO4 IR 15MG TAB (Status = Active) TAKE ONE TABLET BY MOUTH EVERY 24 HOURS (ONCE A DAY) NEEDED FOR BREAKTHROUGH PAIN THIS QUANTITY MUST LAST 28 DAYS OR MORE MAY CAUSE CONSTIPATION. Rx# [id number] Last Released: 12/29/24 Qty/Days Supply: Rx Expiration Date: 01/26/25 Refills Remainin OUTPT SILDENAFIL CITRATE 100MG TAB (Status = ) TAKE ONE TABLET BY MOUTH EVERY WEEK NEEDED FOR ERECTILE DYSFUNCTION (TAKE 60 MINUTES PRIOR TO SEXUAL ACTIVITY) - LIMIT 6 DOSES PER 30 DAYS Rx# [id number] Last Released: 06/17/24 Qty/Days Supply: Rx Expiration Date: 10/29/24 Refills Remainin SUPPLIES OUTPT MEDICATION DISPOSAL PATIENT PKT (Status = ) USE BAG ONE-TIME FOR MEDICATION DISPOSAL Rx# [id number] Last Released: 11/15/24 Qty/Days Supply: 09/01 Rx Expiration Date: 12/10/24 Refills Remainin Indication: FOR MEDICATION DISPOSAL PHARMACY TERMS AND POSSIBLE PATIENT ACTIONS INPT = VA inpatient order IV = IN intravenous medication OUTPT = IN outpatient prescription PHARMACY POSSIBLE PATIENT TERMS EXPLANATION ACTIONS -------- -- ACTIVE A prescription that can be If you have refills, filled at the local [place] pharmacy. you may request a refill of this prescription from your VA pharmacy. CLINIC A medication you received during If you have questions a visit to a [place] clinic or about this medication emergency department. contact your VA healthcare team. DISCONTINUED A prescription your provider has Contact your VA stopped. It is no longer healthcare team if you available to be sent to you or need more of this picked up at the [place] pharmacy medication. window. A prescription which is [...] the VA. Or, it may be an nzdf-bod-urguptn (OTC), herbal, dietary supplements or sample medication. [...] An active prescription that is Contact your VA not scheduled to be filled yet. pharmacy if you need You should receive it before this medication now. you run out. ====== Medication list reviewed with Patient Patient/Caregiver reports taking medications as ordered. IS PATIENT TAKING ANY OVER THE COUNTER MEDICATIONS, SUCH VITAMINS OR HERBAL SUPPLEMENTS, INCLUDING ANY MEDICATIONS PRESCRIBED BY ANOTHER PHYSICIAN? Yes, List: Does patient have any new allergies to report since last visit? NO VITALS: TEMPERATURE: 98.5 F [36.9 C] (11/12/2023 16:34) BP: 177/88 (10/21/2024 11:32) RESP: 18 (10/21/2024 11:31) PULSE: 82 (10/21/2024 11:31) HT: 69 in [175.3 cm] (10/29/2023 13:14) WT: 287.9 lb [130.59 kg] (10/21/2024 11:31) BMI: 42.6 PAIN ASSESSMENT: (Most Recent Pain Score in Vitals Package: 6 (10/21/2024 11:31) ) The patient indicated that they and [...] Now let us serve you. At the [facility], we strive to provide you with exceptional [...] Not At All SPIRITUAL ASSESSMENT: Are there mandaen practices or spiritual concerns you want the kayak maker, your physician, and other health care team members to immediately know about? No Patient advised to call the clinic for any concerns, questions, or symptoms. Patient and/or caregiver verbalized understanding of plan of care. /brenda/ [facility] Signed: 01/17/2025 09:[address] ANDREWOC
--- OUTSIDE RECORDS SUMMARY | 2025-01-17 06:01 | XMS_ITS | Encounter Summary ---
Author Name [facility] [place] [facility] [place] Address [address] [place] [address] Care Team Providers Care Clinic Clerk Name Role Phone THANIA DE Primary Care [...] PART A Sep 03, 2020 PART A [id number] KLAUS CORRAL PATIENT MEDICARE (WNR) MEDICARE (M) PART B Sep 03, 2020 PART B [id number] KLAUS CORRAL PATIENT [facility] 2018 TRICA RE Aug 03, 2017 [facility] [id number] 89 KLAUS CORRAL PATIENT -FO R-LIFE [facility]ICA RE FOR LIFE Sep 03, 2020 [facility] [id number] 89 KLAUS CORRAL PATIENT Selected Encounter This section includes the information on record at [place] for the Encounter. Date/Time Encounter Type Encounter Description Reason Provider Source Jan 17, 2025 11:01 AM Outpatient Encounter ADMIN PAT ACTIVTIES (KEIRA) ADRI ROBLES Lia Encounter Template Text not used by [place] Plan of Treatment: Future Appointments (+ 6 months) and Future Tests (+/- 45 days) The Plan of Treatment section includes future care activities for the patient from all [place] [facility] This section includes future appointments and future orders which are active, pending or scheduled. Future Appointments This section includes appointments that were scheduled to occur 6 months from the date of the Encounter, up to a maximum of 20 appointments. The data comes from all [place] treatment facilities. Appointment Date/Time Appointment Type Appointme nt Facility Name Jan 24, 2025 03:00 PM AMBULATORY - MEDICINE [facility] Jan 31, 2025 02:30 PM AMBULATORY - MEDICINE [facility] Feb 07, 2025 02:30 PM AMBULATORY - MEDICINE [facility] Mar 08, 2025 02:15 PM AMBULATORY - MEDICINE [facility] Active, Pending, and Scheduled Orders This section includes a listing of several types of active, pending, and scheduled orders, including clinic medications orders, diagnostic test orders, procedure orders and consult orders; where the start date of the order is 45 days before the date of the Encounter or 45 days after the date of theEncounter. The data comes from all [facility] Test Date/Time Test Type Test Details Facility Name December 08, 2024 10:28 AM Consult Order COMMUNITY CARE-PAIN [id number] Cons Military Technician's Choice [facility] Vital Signs: All taken on the encounter date This section contains inpatient and outpatient Vital Signs collected on the date of the Encounter. Date/Time Temperature Pulse Blood Pressure Respiratory Rate SP02 Pain Height Weight Body Mass Index Source Jan 17, 2025 09:26 AM 73 /min 149/64 mm[Hg] 97 % [facility] Jan 17, 2025 09:24 AM 97.9 F 72 /min 148/79 mm[Hg] 18 /min 97 % 8 69.0 in 263.7 lb 39 [facility] Social History: Smoking Status (Most current) and Tobacco Use (All prior to encounter date) This section includes the most current, and the historical, smoking and tobacco- related health factors from the [place] facility where the Encounter took place. Current Smoking Status This section includes the most current smoking, or tobacco-related health factor, from the [place] facility where the Encounter took place. Date/Time Current Smoking Status Comment Eve ity Oct 21, 2024 11:00 AM VA-TOBACCO USE EVERY DAY CIGARET DAYAMI [facility] Tobacco Use History This section includes a history of the smoking, or tobacco-related health factors, that were collected on or before the date of the Encounter. The data comes from the [place] facility where the Encounter took place. Date/Time Smoking Status/Tobacco Use Comment F acility Oct 21, 2024 11:00 AM VA-TOBACCO SCREEN FOLLOW-UP [facility] Oct 21, 2024 11:00 AM VA-TOBACCO USE ADVICE [facility] Oct 21, 2024 11:00 AM VA-TOBACCO USE CONTROL PANEL TESTER NO [facility] Oct 21, 2024 11:00 AM VA-TOBACCO USE EVERY DAY CIGARET [facility]I [facility] Oct 21, 2024 11:00 AM VA-TOBACCO USE MED NO [facility] Oct 29, 2023 01:00 PM VA-TOBACCO USE 30 YEARS OR MORE [facility] Oct 29, 2023 01:00 PM VA-TOBACCO USE ADVICE [facility] Oct 29, 2023 01:00 PM VA-TOBACCO USE CONTROL PANEL TESTER NO [facility] Oct 29, [...] Nov 06, 2022 02:00 PM VA-TOBACCO USE CONTROL PANEL TESTER NO [facility] Nov 06, 2022 02:00 PM VA-TOBACCO USE MED NO [facility] Nov 06, 2022 02:00 PM VA-TOBACCO USER EVERY DAY [facility] Sep 09, 2021 02:31 PM VA-TOBACCO USE > 1 5 LESS THAN 30 YEARS [facility] Sep 09, 2021 02:31 PM VA-TOBACCO USE ADVICE [facility] Sep 09, 2021 02:31 PM VA-TOBACCO USE CONTROL PANEL TESTER NO [facility] Sep 09, 2021 02:31 PM VA-TOBACCO USE MED NO [facility] Sep 09, 2021 02:31 PM VA-TOBACCO USE WI 30 MIN OF WAKE UP [facility] Sep 09, 2021 02:31 PM VA-TOBACCO USER EVERY DAY [facility] Sep 06, 2008 11:00 PM IC/PATIENT IS SMO[facility]ER [facility] Sep 06, 2008 11:00 PM PATIENT NOT GIVEN TOBACCO HANDOU T [facility] Advance Directives: All historical and current Section Date Range: From patient's date of to the date document was created. This section includes ALL of a patient's completed or amended [place] Advance and Rescinded Directives. The entries below indicate that a directive exists for the patient, but an actual copy is not included with this document. The data comes from all [facility]. Date Advance Directives Provider Source Nov 25, 2004 ADVANCE DIRECTIVE LINDA ALDRIDGE [facility] Radiology Reports: +/- 30 days of [...] the Encounter. The data comes from all [place] treatment facilities. Date/Time Radiology Report Provider Source Jan 17, 2025 09:38 AM KNEE,RIGHT 3 VIEWS : ROBERTO CARLOS CORRAL [id number] -1965 M Exm Date: JAN 17, 2025@09:38 Req Phys: THANIA DE Loc: PB-ELIN PACT ECHO PCP (Req'g Lo Img Loc: PB-XRAY [place] Service: [place] [address] (Case [id number] COMPLETE) KNEE,RIGHT 3 VIEWS (RAD Detailed) CPT:25340 Proc Modifiers : RIGHT Reason for Study: right knee Clinical History: Report Status: Verified Date Reported: JAN 17, 2025 Date Verified: JAN 17, 2025 Chief Of Field Operations E-Sig: Report: Right knee 3 views. HISTORY: [...] tibia Primary Interpreting Staff: CHEN NORRIS, RADIOLOGIST (Chief Of Field Operations, no e-sig) /CHEN Rodgers [facility] Encounter Notes: All associated encounter notes This section contains the clinical notes associated to the Encounter. Date/Time Encounter Note(s) Provider Source Jan 17, 2025 11:01 AM LETTERS: LOCAL TITLE: TELE-EYE RESULTS LETTER STANDARD TITLE: LETTERS DATE OF NOTE: JAN 17, 2025@11:01 ENTRY DATE: JAN 17, 2025@11:01:36 AUTHOR: ADRI ROBLES EXP COSIGNER: URGENCY: STATUS: COMPLETED JAN 17, 2025 ROBERTO CARLOS CORRAL [address] [place] [id number] Dear Roberto Carlos Corral: You are receiving this letter in regard to your recent VA EYE SCREENING. The purpose of the screening is to detect specific vision-threatening conditions such as diabetic retinopathy (if you are diabetic), macular degeneration, and glaucoma. Early detection of eye disease can be important to reduce the risk of permanent vision loss. Your information and testing was reviewed by a licensed VA eye care provider. The date of review and findings are noted below: Screening Exam Findings 01/17/2025 No macular degeneration apparent No glaucoma apparent Recommendations: 01/17/2025 A repeat eye screening in 2 YEARS has been recommended *Please note that incidental findings outside the primary focus of this screening may be noted within the detailed report of the visit. This report can be accessed online through [employer] ([email or web address]) or requested through your [place] Medical Records/Release of Information office. If you have been seen by a non-VA eye care provider, please bring your records to your next VA appointment to be scanned into your medical record. If you are a tobacco user, VA provides tobacco cessation services which can reduce the risk of eye disease as well as risks to your overall health. Please discuss with your VA Primary Care team for more information. Thank you for allowing us to serve you. [place] Healthcare Team Digital retinal imaging has been shown to be an effective method of screening for specific eye conditions, but cannot substitute for a comprehensive eye exam. Comprehensive eye exams are recommended every 1-2 years, or more frequently as determined by the presence of risk factors, early signs or symptoms, or known history of eye disease. ADRI ROBLES [facility]
--- OUTSIDE RECORDS SUMMARY | 2025-02-15 06:10 | XMS_ITS | Encounter Summary ---
Author Name [facility] [place] [facility] [place] [facility] [place] Address [address] [place] [address] Care Team Providers Care Mammography Technologist Name Role Phone BILL KAPOOR Primary Care Provider Unavailabl e THANIA DE Primary Care Provider Unavailabl e Insurance Providers: [...] PART A Sep 03, 2020 PART A [id number] KLAUS CORRAL PATIENT MEDICARE (WNR) MEDICARE (M) PART B Sep 03, 2020 PART B [id number] KLAUS CORRAL PATIENT [facility] 2018 TRICA RE Aug 03, 2017 [facility] [id number] 89 KLAUS CORRAL PATIENT -FO R-LIFE [facility]ICA RE FOR LIFE Sep 03, 2020 [facility] [id number] 89 KLAUS CORRAL PATIENT Selected Encounter This section includes the information on record at [place] for the Encounter. Date/Time Encounter Type Encounter Description Reason Pro vider Source Feb 15, 2025 11:10 AM Outpatient Encounter TELEPHONE TRIAGE IHE Encounter Template Text not used by [place] Plan of Treatment: Future Appointments (+ 6 months) and Future Tests (+/- 45 days) The Plan of Treatment section includes future care activities for the patient from all [place] treatmentfacilities. This section includes future appointments and future orders which are active, pending or scheduled. Future Appointments This section includes appointments that were scheduled to occur 6 months from the date of the Encounter, up to a maximum of 20 appointments. The data comes from all [place] treatment facilities. Appointment Date/Time Appointment Type Appointme nt Facility Name Mar 08, 2025 02:15 PM AMBULATORY - MEDICINE [facility] Social History: Smoking Status (Most current) and Tobacco Use (All prior to encounter date) This section includes the most current, and the historical, smoking and tobacco- related health factors from the [place] facility where the Encounter took place. Current Smoking Status This section includes the most current smoking, or tobacco-related health factor, from the [place] facility where the Encounter took place. Date/Time Current Smoking Status Comment Facil ity Sep 06, 2008 11:00 PM IC/PATIENT IS SMOKER [facility] Tobacco Use History This section includes a history of the smoking, or tobacco-related health factors, that were collected on or before the date of the Encounter. The data comes from the [place] facility where the Encounter took place. Date/Time Smoking Status/Tobacco Use Comment F acility Sep 06, 2008 11:00 PM PATIENT NOT GIVEN TOBACCO HANDOU T [facility] Advance Directives: All historical and current Section Date Range: From patient's date of to the date document was created. This section includes ALL of a patient's completed or amended [place] Advance and Rescinded Directives. The entries below indicate that a directive exists for the patient, but an actual copy is not included with this document. The data comes from all [place] facilities. Date Advance Directives Provider Source Nov 25, 2004 ADVANCE DIRECTIVE LINDA ALDRIDGE [facility] Radiology Reports: +/- 30 days [...] the Encounter. The data comes from all [place] treatment facilities. Date/Time Radiology Report Provider Source Jan 17, 2025 09:38 AM KNEE,RIGHT 3 VIEWS : ROBERTO CARLOS CORRAL [id number] -1965 M Exm Date: JAN 17, 2025@09:38 Req Phys: THANIA DE Pat Loc: PB-ELIN PACT ECHO PCP (Req'g Lo Img Loc: PB-XRAY [place] Service: [place] [address] (Case [id number] COMPLETE) KNEE,RIGHT 3 VIEWS (RAD Detailed) CPT:22386 Proc Modifiers : RIGHT Reason for Study: right knee Clinical History: Report Status: Verified Date Reported: JAN 17, 2025 Date Verified: JAN 17, 2025 Recreational Therapist E-Sig: Report: Right knee 3 views. HISTORY: [...] tibia Primary Interpreting Staff: CHEN NORRIS, RADIOLOGIST (Recreational Therapist, no e-sig) /CHEN Rodgers [facility] Encounter Notes: All associated encounter notes This section contains the clinical notes associated to the Encounter. Date/Time Encounter Note(s) Provider Source Feb 15, 2025 11:10 AM RN PROGRESS NOTE: LOCAL TITLE: CCC: CLINICAL TRIAGE STANDARD TITLE: RN PROGRESS NOTE DATE OF NOTE: FEB 15, 2025@11:10:17 ENTRY DATE: FEB 15, 2025@11:10:17 AUTHOR: FROILAN LOPEZ COSIGNER: URGENCY: STATUS: COMPLETED Caller Verification Call Back Number: [phone] Caller/Recipient Relation to Patient: Self Caller Name: ROBERTO CARLOS CORRAL Emergency Contact: RAQUEL CORRAL Triage Summary Conducted triage/discussed symptoms Utilized the Triage Tool: Yes Chief Complaint: Shoulder Pain Nurse's Recommendation / WHEN: Now Nurse's Recommendation / WHERE: ED [facility] Patient Disposition Patient/Caregiver agrees to plan of care: Yes Nursing Plan and Disposition Referred patient to higher level of care Instructed to go to Emergency Room (ER) Advised of Financial Disclaimer: Patient advised that recommendation for care provided during the call does not constitute an approval or authorization for payment by the [place] or its staff. Patient advised to report a community ED visit to the [facility] Office of Community Care at within 72 hours. Other course(s) of action Generated msg to PACT/Provider Provided guidance for worsening symptoms: *Caller/Patient* advised to call facilities [place] Clinical Contact Center or seek immediate medical attention for new or worsening symptoms Nurse Summary Nurse Summary: c/o right shoulder pain, so severe that he can't turn the king in his car. He says the pain has been worsening for the past 10-11 days. He rates his pain a 12/10 . He takes Morphine and Ibuprofen for pain. When not using his right arm and shoulder, his pain level is a 4/10 . Declines offer of Tele-EC. Advised to present to the ER. agreeable to present to the ER. Provided the National reporting number for going outside the [place] and reminded to call within 72 hours of leaving the ER. Verbalizes understanding. Clinical Contact Center Codes Clinic/Location: 5 PHONE CCC RN Decision Support System Output: Triage Complete Triage Date: 02/15/2025, 11:00 AM Triage Note: Decision Support Tool Used: ClearTriage Protocol Used: Shoulder Pain Protocol-Based Disposition: Go to ED or Consult Tele-EC Now Positive Triage Question: * [1] SEVERE pain AND [2] not improved 2 hours after pain medicine Negative Triage Questions: * Passed out (e.g., fainted, lost consciousness, blacked out and was not responding) * Shock suspected (e.g., cold/pale/clammy skin, too weak to stand, low BP, rapid pulse) * [1] Similar pain previously AND [2] it was from heart attack * [1] Similar pain previously AND [2] it was from angina AND [3] not relieved by nitroglycerin * Sounds like a life-threatening emergency to the triager * Difficulty breathing or unusual sweating (e.g., sweating without exertion) * [1] Pain lasting > 5 minutes AND [2] pain also present in chest (Exception: Pain is clearly made worse by movement.) * [1] Age > 40 AND [2] no obvious cause AND [3] pain even when not moving the arm (Exception: Pain is clearly made worse by moving arm or bending neck.) * Dark (cola or tea-colored) or red-colored urine IMPORTANT: This note was created by [facility] Clinical Contact Center staff. Please do not alert the staff member by adding them as a signer for future communications. Alerts are not monitored by this user. /es/ FROILAN LOPEZ RN Signed: 02/15/2025 11:10 Receipt Acknowledged By: 02/16/2025 08:37 /es/ CADEN [facility], [facility] for THANIA DE 02/15/2025 15:22 /es/ Joellen Ureña RN [facility], [facility] for FROILAN ESCALONA [facility]
--- OUTSIDE RECORDS SUMMARY | 2025-02-16 04:09 | XMS_ITS | Encounter Summary ---
Author Name [facility] [place] Address [address] [place] [address] Care Team Providers Care Technologist Infectious Disease Name Role Phone BILL KAPOOR Primary Care [...] PART B Sep 03, 2020 PART B [id number] KLAUS CORRAL PATIENT MEDICARE (WNR) MEDICARE (M) PART A Sep 03, 2020 PART A [id number] KLAUS CORRAL PATIENT [place] 2018 TRICA RE Aug 03, 2017 [facility] [id number] 89 KLAUS CORRAL PATIENT -FO R-LIFE TRICA RE FOR LIFE Sep 03, 2020 [facility] [id number] 89 KLAUS CORRAL PATIENT Selected Encounter This section includes the information on record at CT for the Encounter. Date/Time Encounter Type Encounter Description Reason Provider Source Feb 16, 2025 09:09 AM Outpatient Encounter CLINICAL PHARMACY CARRINGTON RUEDA Lia Encounter Template Text not used by CT Plan of Treatment: Future Appointments (+ 6 months) and Future Tests (+/- 45 days) The Plan of Treatment section includes future care activities for the patient from all [place] treatmentfacilities. This section includes future appointments and future orders which are active, pending or scheduled. Future Appointments This section includes appointments that were scheduled to occur 6 months from the date of the Encounter, up to a maximum of 20 appointments. The data comes from all [place] treatment facilities. Appointment Date/Time Appointment Type Appointme nt Facility Name Mar 08, 2025 02:15 PM AMBULATORY - MEDICINE [facility] Social History: Smoking Status (Most current) and Tobacco Use (All prior to encounter date) This section includes the most current, and the historical, smoking and tobacco- related health factors from the [place] facility where the Encounter took place. Current Smoking Status This section includes the most current smoking, or tobacco-related health factor, from the [place] facility where the Encounter took place. Date/Time Current Smoking Status Comment Facil ity Sep 06, 2008 11:00 PM IC/PATIENT IS SMOKER [facility] Tobacco Use History This section includes a history of the smoking, or tobacco-related health factors, that were collected on or before the date of the Encounter. The data comes from the [place] facility where the Encounter took place. Date/Time Smoking Status/Tobacco Use Comment F acility Sep 06, 2008 11:00 PM PATIENT NOT GIVEN TOBACCO HANDOU T [facility] Advance Directives: All historical and current Section Date Range: From patient's date of to the date document was created. This section includes ALL of a patient's completed or amended CT Advance and Rescinded Directives. The entries below indicate that a directive exists for the patient, but an actual copy is not included with this document. The data comes from all CT facilities. Date Advance Directives Provider Source Nov 25, 2004 ADVANCE DIRECTIVE LINDA ALDRIDGE [facility] Radiology Reports: +/- 30 days [...] the Encounter. The data comes from all CT treatment facilities. Date/Time Radiology Report Provider Source Jan 17, 2025 09:38 AM KNEE,RIGHT 3 VIEWS : ROBERTO CARLOS CORRAL [id number] -1965 M Exm Date: JAN 17, 2025@09:38 Req Phys: THANIA DE Pat Loc: PB-ELIN PACT ECHO PCP (Req'g Lo Img Loc: PB-XRAY [place] Service: [place] [address] (Case [id number] COMPLETE) KNEE,RIGHT 3 VIEWS (RAD Detailed) CPT:[id number] Proc Modifiers : RIGHT Reason for Study: right knee Clinical History: Report Status: Verified Date Reported: JAN 17, 2025 Date Verified: JAN 17, 2025 Human Resources Associate E-Sig: Report: Right knee 3 views. HISTORY: [...] tibia Primary Interpreting Staff: CHEN NORRIS, RADIOLOGIST (Human Resources Associate, no e-sig) /CHEN Rodgers [facility] Encounter Notes: All associated encounter notes This section contains the clinical notes associated to the Encounter. Date/Time Encounter Note(s) Provider Source Feb 16, 2025 09:09 AM PHARMACY NOTE: LOCAL TITLE: V15 COMMUNITY CARE OUTSIDE PRESCRIPTION STANDARD TITLE: PHARMACY NOTE DATE OF NOTE: FEB 16, 2025@09:09 ENTRY DATE: FEB 16, 2025@09:09:39 AUTHOR: CARRINGTON RUEDA EXP COSIGNER: URGENCY: STATUS: COMPLETED Community Care Outside Prescription Note *Pharmacy Service received prescription(s) via: Inbound eRx *Eligibility Care in the Community or COMPACT ACT eligibility has been verified and/or is documented. Authorization #: [id number] Prescriber and Prescription Information: PRESCRIBER INFORMATION Name: SONIA BHAT I Address: [address] [place] [id number] [place]: [id number] [facility] Lic: [id number] Primary Phone: [phone] Fax: [phone] PRESCRIPTI ON INFORMATION eRx Drug: Morphine Sulfate 15 MG Tablet [C-II] [facility]: [id number] Written Date: JAN 24, 2025 Issue Date: JAN 24, 2025 Qty: 28 Days Supply: 28 Refills: 0 Code List Qualifier: Original Quantity Drug Form: TABLET DOSAGE FORM Strength: MILLIGRAM Substitutions?: YES Prohibit Renewals: No eRx Si tablet as needed Orally daily As needed 28 days Provider Comments: fill 02/23/25 Provider Clarification or Clinical Intervention Section *Received prescription for above mentioned medications(s) and/or supply item(s), however the Outpatient Pharmacy has the following questions/concerns in relation to prescription received. Outpatient Pharmacy has attempted to reach Community Care provider's team to clarify the following issue/concern via means of electronic change request/phone/fax: Other: This medication is currently unvailable with no estimated date of availability. The 30mg IR tablets are available, VA would need a new prescription sent for an alternative. Voicemail left with provider's office Electronically signed by: /brenda/ CARRINGTON RUEDA PHARMD CLINICAL PHARMACIST Signed: 02/16/2025 09:13 CARRINGTON RUEDA [facility]
--- OUTSIDE RECORDS SUMMARY | 2025-02-16 10:51 | XMS_ITS | Continuity of Care Document ---
Author Name [facility] Organization [facility] Care Team Providers Care Camera Maker Name Role Phone [facility] Unavailable Unavailable Problems Combined list of problems from Department of Defense and Veterans Affairs facilities. It does not include entries that were removed or entered in error. Problem Status Onset Date Problem Type Date of Resolution Comments Source Cervicalgia Active Condition [place] [facility] Chronic post-traumatic stress disorder Active Condition [facility] Cigarette smoker Active Condition [place] [facility] Cyclothymia Active Condition [facility] Degeneration of lumbar intervertebral disc Active Condition [facility] Degeneration of Lumbar Intervertebral Disc (SCT 00180575) Active Condition [facility] Erectile dysfunction Active Condition [facility] Erectile Dysfunction (SCT 500460656) Active Condition [facility] Hematuria Active Condition Mar 23 Entered By: NAKIA DUMONT Comment: 03-23-17 normal cysto done [facility] Hematuria Active Condition Aug 14 Entered By: ANEL LE Comment: Normal cysto 2017 [facility] HTN - Hypertension (SCT 43318202) Active Condition [facility] Hypertensive disorder Active Condition Jun 19, 2015 Entered By: SONIA IBANEZ Comment: Not on treatment currently, trying diet/weight loss [facility] Internal hemorrhoids Active Condition Jan 05, 2017 Entered By: MICHELLE THOMAS Comment: 01/05/17 colonoscopy [facility] Internal hemorrhoids Active [place] [facility] Left shoulder pain Active Condition [place] [facility] Low back pain (SNOMED CT 939329524) Active Condition [facility] Low Back Pain * (ICD-9-CM 724.2) Active Condition [facility] Lumbago with sciatica Active Condition [facility] Major depressive disorder Active [facility] Major depressive disorder (SNOMED CT 669732436) Active Condition [facility] Multiple seborrheic keratoses Active Condition [place] [facility] Obesity Active Condition Jun 19 15 Entered By: SONIA IBANEZ Comment: BMI 40 [facility] Obesity Active Condition [facility] Obesity ([facility] 544349703) Active Condition [facility] Obstructive sleep apnea Active Condition [facility] occult/fit Active Condition Nov 22 021 Entered By: BILL KAPOOR Comment: No results for selected tests in this date range. [facility] Polyp colon Active Condition Jan 05, 2017 Entered By: MICHELLE THOMAS Comment: 01/05/17 colonoscopy polyp at 30cm, rectum polyp fulguratedJul 02, 2018 Entered By: NIK NÚÑEZ Comment: Plan: Repeat Endo in 5 years [facility] Polyp Colon ([facility] [id number]) Active Condition [facility] Posttraumatic stress disorder Active Condition [facility] Prediabetes (SCT 791030320) Active Condition [facility] Sleep Apnea ([facility] 65383715) Active Condition Mar 10, 2023 Entered By: THANIA DE Comment: [facility] Steatosis of liver Active Condition [facility] Ulnar neuropathy Active Condition [facility] Unifocal premature ventricular complexes [facility] Other Malaise and Fatigue (ICD-9-CM 780.79) Inactive Condition 06/19/2015 [facility] Sleep Apnea (ICD-9-CM 780.57/786.09) Inactive Condition 09/24/2010 [facility] Diagnosis: ICD-10-CM M25.512 Pain in left shoulder Active Diagnosis [facility] Diagnosis: ICD-10-CM Z13.5 Encounter for screening for eye and ear disorders Active Diagnosis [facility] Diagnosis: ICD-10-CM M51.16 Intervertebral disc disorders w radiculopathy, lumbar region Active Diagnosis [facility] Diagnosis: ICD-10-CM M54.2 Cervicalgia Active Diagnosis [facility] Diagnosis: ICD-10-CM M54.50 Low back pain, unspecified Active Diagnosis [facility] Diagnosis: ICD-10-CM F32.9 Major depressive disorder, single episode, unspecified Active Diagnosis [facility] Diagnosis: ICD-10-CM G89.29 Other chronic pain Active Diagnosis [facility] Diagnosis: ICD-10-CM Z46.1 Encounter for fitting and adjustment of hearing aid Active Diagnosis [facility] Diagnosis: ICD-10-CM H90.3 Sensorineural hearing loss, bilateral Active Diagnosis [facility] Diagnosis: ICD-10-CM H91.93 Unspecified hearing loss, bilateral Active Diagnosis [facility] Diagnosis: ICD-10-CM G47.30 Sleep apnea, unspecified Active Diagnosis [facility] Diagnosis: ICD-10-CM R01.1 Cardiac murmur, unspecified Active Diagnosis [facility] Diagnosis: ICD-10-CM I10 Essential (primary) hypertension Active Diagnosis [facility] Diagnosis: ICD-10-CM Z71.89 Other specified counseling Active Diagnosis [facility] Medications Combined list of outpatient medications from Department of Defense and Veterans Affairs facilities.Medications provided include 1) outpatient medications from the last 15 months, and 2) patient-reported medications. Medication Details Route Status Patient Instructions Prescription Expires Prescription Number Last Dispense Date Ordering Provider Order Date Order Qty Source CARISOPRODO L 350MG TAB TAKE ONE TABLET BY MOUTH THREE TIMES A DAY NEEDED ORAL ACTIVE THANIA DE 2024 [facility] CHOLECALCIF TODD 50MCG (2,000UNIT) TAB TAKE TWO TABLETS BY MOUTH ONCE A DAY FOR VITAMIN D DEFICIEN CY. ORAL ACTIVE 11/04/2025 [id number] 5 THANIA DE 2024 200 [facility] FISH OIL 1000MG (500MG DHA/EPA) CAP,ORAL TAKE ONE CAPSULE BY MOUTH EVERY DAY TO LOWER TRIGLYCE RIDES ORAL DISCONT INUED 10/29/2024 [id number] 4 THANIA DE 2023 100 [facility] Hydrochloro thiazide (Oretic) Tablet 25 mg Oral TAKE ONE TABLET BY MOUTH ONCE A DAY FOR BLOOD PRESSURE 10/29/2024 [id number] 4 THANIA DE 2023 90 [facility] HYDROCHLORO THIAZIDE 25MG TAB TAKE ONE TABLET BY MOUTH ONCE A DAY FOR BLOOD PRESSURE ORAL ACTIVE 11/04/2025 [id number] 5 THANIA DE [address] [place] [address] HYDROCHLORO THIAZIDE 25MG TAB TAKE ONE TABLET BY MOUTH ONCE A DAY FOR BLOOD PRESSURE ORAL DISCONT INUED 10/29/2024 [id number] 4 THANIA DE [address] [place] [address] Ibuprofen (Motrin) Tablet 800 mg Oral TAKE ONE TABLET BY MOUTH EVERY 6 HOURS NEEDED FOR PAIN OR INFLAMMA TION. TAKE WITH FOOD. 10/29/2024 [id number] 4 THANIA DE [address] [place] [address] Divisio n IBUPROFEN 400MG TAB TAKE ONE TABLET BY MOUTH TWICE A DAY ORAL ACTIVE SIGRID RYAN 2004 [facility] IBUPROFEN 800MG TAB TAKE ONE TABLET BY MOUTH EVERY 6 HOURS NEEDED FOR PAIN OR INFLAMMA TION. TAKE WITH FOOD. ORAL ACTIVE 11/04/2025 [id number] 5 THANIA DE [address] [place] [address] IBUPROFEN 800MG TAB TAKE ONE TABLET BY MOUTH EVERY 6 HOURS NEEDED FOR PAIN OR INFLAMMA TION. TAKE WITH FOOD. ORAL DISCONT INUED 10/29/2024 [id number] 4 THANIA DE [address] [place] [address] IRX: Sildenafil 100 mg/Placebo Tablet Oral TAKE ONE TABLET BY MOUTH EVERY WEEK NEEDED FOR ERECTILE DYSFUNCT ION (TAKE 60 MINUTES PRIOR TO SEXUAL ACTIVITY ) - LIMIT 6 DOSES PER 30 DAYS 10/29/2024 [id number] 4 THANIA DE 2023 18 [facility] morphine IR (U/D) 15 MG ORAL TAB TAKE ONE TABLET BY MOUTH EVERY 24 HOURS (ONCE A DAY) NEEDED FOR BREAKTHR OUGH PAINM UST LAST 28 DAYS OR MORE MAY CAUSE CONSTIPA TION. 02/20/2024 [id number] 4 [facility] TORRES 2023 28 [facility] morphine IR (U/D) 15 MG ORAL TAB TAKE ONE TABLET BY MOUTH EVERY 24 HOURS (ONCE A DAY) NEEDED FOR BREAKTHR OUGH PAINM UST LAST 28 DAYS OR MORE MAY CAUSE CONSTIPA TION. Discont inued 01/23/2024 [id number] 4 DARIANA TORRES 2023 28 [facility] morphine IR (U/D) 15 MG ORAL TAB TAKE ONE TABLET BY MOUTH EVERY 24 HOURS (ONCE A DAY) NEEDED FOR BREAKTHR OUGH PAINM UST LAST 28 DAYS OR MORE MAY CAUSE CONSTIPA TION. 01/23/2024 [id number] 4 DARIANA TORRES 2023 28 [facility] morphine IR (U/D) 15 MG ORAL TAB TAKE ONE TABLET BY MOUTH EVERY 24 HOURS (ONCE A DAY) NEEDEDFO R BREAKTHR OUGH PAIN THIS QUANTITY MUST LAST 28 DAYS OR MORE MAY CAUSECON STIPATIO N. Discont inued 12/26/2023 [id number] 4 DARIANA TORRES 2023 28 [facility] MORPHINE SO4 15MG TAB TAKE ONE TABLET BY MOUTH EVERY DAY NEEDED FOR PAIN THIS QUANTITY MUST LAST 28 DAYS OR MORE MAY CAUSE CONSTIPA TION. ORAL HOLD 02/23/2025 [id number] 5 SONIA HOFFMAN 2024 28 [place] [facility] MORPHINE SO4 15MG TAB TAKE ONE TABLET BY MOUTH EVERY 24 HOURS (ONCE A DAY) NEEDED FOR BREAKTHR OUGH PAIN THIS QUANTITY MUST LAST 28 DAYS OR MORE MAY CAUSE CONSTIPA TION. ORAL DISCONT INUED 01/26/2025 [id number] 5 Gilda TORRES 2024 28 [place] [facility] MORPHINE SO4 15MG TAB TAKE ONE TABLET BY MOUTH EVERY 24 HOURS (ONCE A DAY) NEEDED FOR BREAKTHR OUGH PAIN THIS QUANTITY MUST LAST 28 DAYS OR MORE MAY CAUSE CONSTIPA TION. ORAL DISCONT INUED 12/29/2024 [id number] 5 Gilda TORRES 2024 28 [place] [facility] MORPHINE SO4 15MG TAB TAKE ONE TABLET BY MOUTH EVERY 24 HOURS (ONCE A DAY) NEEDED FOR BREAKTHR OUGH PAIN MAY CAUSE CONSTIPA TION. MUST LAST 28 DAYS ORAL DISCONT INUED 12/01/2024 [id number] 5 Gilda TORRES 2024 28 [place] [facility] MORPHINE SO4 15MG TAB TAKE ONE TABLET BY MOUTH EVERY 24 HOURS (ONCE A DAY) NEEDED FOR BREAKTHR OUGH PAIN MAY CAUSE CONSTIPA TION. THIS QUANTITY MUST LAST 28 DAYS OR MORE ORAL DISCONT INUED 11/03/2024 [id number] 5 Gilda TORRES 2024 28 [place] [facility] MORPHINE SO4 15MG TAB TAKE ONE TABLET BY MOUTH EVERY 24 HOURS (ONCE A DAY) NEEDED FOR BREAKTHR OUGH PAIN MAY CAUSE CONSTIPA TION. ORAL DISCONT INUED 10/05/2024 [id number] 5 Gilda TORRES 2024 28 [place] [facility] MORPHINE SO4 15MG TAB TAKE ONE TABLET BY MOUTH EVERY 24 HOURS (ONCE A DAY) NEEDED FOR BREAKTHR OUGH PAIN MAY CAUSE CONSTIPA TION. ORAL DISCONT INUED 09/08/2024 [id number] 5 Gilda TORRES 2024 28 [place] [facility] MORPHINE SO4 15MG TAB TAKE ONE TABLET BY MOUTH EVERY 24 HOURS (ONCE A DAY) NEEDED FOR BREAKTHR OUGH PAIN THIS QUANTITY MUST LAST 28 DAYS OR MORE MAY CAUSE CONSTIPA TION. ORAL DISCONT INUED 08/11/2024 [id number] 4 Gilda TORRES 2023 28 [place] [facility] MORPHINE SO4 15MG TAB TAKE ONE TABLET BY MOUTH EVERY 24 HOURS (ONCE A DAY) NEEDED FOR BREAKTHR OUGH PAIN *SUPPLY MUST LAST 28 DAYS OR MORE* MAY CAUSE CONSTIPA TION. ORAL DISCONT INUED 07/14/2024 [id number] 4 Gilda TORRES 2023 28 [place] [facility] MORPHINE SO4 15MG TAB TAKE ONE TABLET BY MOUTH EVERY 24 HOURS (ONCE A DAY) NEEDED FOR BREAKTHR OUGH PAIN. MAY CAUSE CONSTIPA TION. ORAL DISCONT INUED 05/14/2024 [id number] 4 Gilda TORRES 2023 28 [place] [facility] MORPHINE SO4 15MG TAB TAKE ONE TABLET BY MOUTH EVERY 24 HOURS (ONCE A DAY) NEEDED FOR BREAKTHR OUGH PAIN MUST LAST 28 DAYS OR MORE MAY CAUSE CONSTIPA TION. ORAL DISCONT INUED 04/16/2024 [id number] 4 Gilda TORRES 2023 28 [place] [facility] MORPHINE SO4 15MG TAB TAKE ONE TABLET BY MOUTH EVERY 24 HOURS (ONCE A DAY) NEEDED FOR BREAKTHR OUGH PAIN. MAY CAUSE CONSTIPA TION. MUST LAST 28 DAYS ORAL DISCONT INUED 03/19/2024 [id number] 4 Gilda TORRES 2023 28 [place] [facility] MORPHINE SO4 15MG TAB TAKE ONE TABLET BY MOUTH EVERY 24 HOURS (ONCE A DAY) NEEDED FOR BREAKTHR OUGH PAIN MUST LAST 28 DAYS OR MORE MAY CAUSE CONSTIPA TION. ORAL DISCONT INUED 02/20/2024 [id number] 4 Gilda TORRES 2023 28 [place] [facility] MORPHINE SO4 15MG TAB TAKE ONE TABLET BY MOUTH EVERY 24 HOURS (ONCE A DAY) NEEDED FOR BREAKTHR OUGH PAIN MUST LAST 28 DAYS OR MORE MAY CAUSE CONSTIPA TION. ORAL DISCONT INUED 01/23/2024 [id number] 4 Gilda TORRES 2023 28 [place] [facility] MORPHINE SO4 15MG TAB TAKE ONE TABLET BY MOUTH EVERY 24 HOURS (ONCE A DAY) NEEDED FOR BREAKTHR OUGH PAIN THIS QUANTITY MUST LAST 28 DAYS OR MORE MAY CAUSE CONSTIPA TION. ORAL DISCONT INUED 12/26/2023 [id number] 4 Gilda TORRES 2023 28 [place] [facility] MORPHINE SO4 15MG TAB TAKE ONE TABLET BY MOUTH EVERY 24 HOURS (ONCE A DAY) NEEDED MUST LAST 28 DAYS OR MORE MAY CAUSE CONSTIPA TION.FOR BREAKTHR OUGH PAIN ORAL 06/11/2024 [id number] 4 Gilda TORRES 2023 28 [place] [facility] MORPHINE SO4 15MG TAB,SA TAKE ONE TABLET BY MOUTH EVERY 12 HOURS MAY CAUSE CONSTIPA TION. SWALLOW WHOLE; DO NOT CRUSH OR CHEW. ORAL DISCONT INUED 12/29/2024 [id number] 5 Gilda TORRES 2024 56 [place] [facility] MOR[facility]INE SO4 15MG TAB,SA TAKE ONE TABLET BY MOUTH EVERY 12 HOURS MAY CAUSE CONSTIPA TION. SWALLOW WHOLE; DO NOT CRUSH OR CHEW. ORAL DISCONT INUED 01/26/2025 [id number] 5 Gilda TORRES 2024 56 [place] [facility] SO4 15MG TAB,SA TAKE ONE TABLET BY MOUTH EVERY 12 HOURS MUST LAST 28 DAYS MAY CAUSE CONSTIPA TION. SWALLOW WHOLE; DO NOT CRUSH OR CHEW. ORAL DISCONT INUED 12/01/2024 [id number] 5 Gilda TORRES 2024 56 [place] [facility] SO4 15MG TAB,SA TAKE ONE TABLET BY MOUTH EVERY 12 HOURS MAY CAUSE CONSTIPA TION. SWALLOW WHOLE; DO NOT CRUSH OR CHEW. THIS QUANTITY MUST LAST 28 DAYS OR MORE ORAL DISCONT INUED 11/03/2024 [id number] 5 Gilda TORRES 2024 56 [place] [facility] SO4 15MG TAB,SA TAKE ONE TABLET BY MOUTH EVERY 12 HOURS MAY CAUSE CONSTIPA TION. SWALLOW WHOLE; DO NOT CRUSH OR CHEW. ORAL DISCONT INUED 10/05/2024 [id number] 5 Gilda TORRES 2024 56 [place] [facility] MORPHINE SO4 15MG TAB,SA TAKE ONE TABLET BY MOUTH EVERY 12 HOURS MAY CAUSE CONSTIPA TION. SWALLOW WHOLE; DO NOT CRUSH OR CHEW. ORAL DISCONT INUED 09/08/2024 [id number] 5 Gilda TORRES 2024 56 [place] [facility] MORPHINE SO4 15MG TAB,SA TAKE ONE TABLET BY MOUTH EVERY 12 HOURS THIS QUANTITY MUST LAST 28 DAYS OR MORE MAY CAUSE CONSTIPA TION. SWALLOW WHOLE; DO NOT CRUSH OR CHEW. ORAL DISCONT INUED 08/11/2024 [id number] 4 Gilda TORRES 2023 56 [place] [facility] MORPHINE SO4 15MG TAB,SA TAKE ONE TABLET BY MOUTH EVERY 12 HOURS *SUPPLY MUST LAST 28 DAYS OR MORE* MAY CAUSE CONSTIPA TION. SWALLOW WHOLE; DO NOT CRUSH OR CHEW. ORAL DISCONT INUED 07/14/2024 [id number] 4 Gilda TORRES 2023 56 [place] [facility] MORPHINE SO4 15MG TAB,SA TAKE ONE TABLET BY MOUTH EVERY 12 HOURS FOR PAIN. MAY CAUSE CONSTIPA TION. SWALLOW WHOLE; DO NOT CRUSH OR CHEW. ORAL DISCONT INUED 05/14/2024 [id number] 4 Gilda TORRES 2023 56 [place] [facility] MORPHINE SO4 15MG TAB,SA TAKE ONE TABLET BY MOUTH EVERY 12 HOURS MUST LAST 28 DAYS OR MORE MAY CAUSE CONSTIPA TION. SWALLOW WHOLE; DO NOT CRUSH OR CHEW. ORAL DISCONT INUED 04/16/2024 [id number] 4 Gilda TORRES 2023 56 [place] [facility] MORPHINE SO4 15MG TAB,SA TAKE ONE TABLET BY MOUTH EVERY 12 HOURS FOR PAIN. MAY CAUSE CONSTIPA TION. SWALLOW WHOLE; DO NOT CRUSH OR CHEW. MUST LAST 28 DAYS ORAL DISCONT INUED 03/19/2024 [id number] 4 Gilda TORRES 2023 56 [place] [facility] MORPHINE SO4 15MG TAB,SA TAKE ONE TABLET BY MOUTH EVERY 12 HOURS MAY CAUSE CONSTIPA TION. SWALLOW WHOLE; DO NOT CRUSH OR CHEW. ORAL DISCONT INUED 02/20/2024 [id number] 4 Gilda TORRES 2023 56 [place] [facility] MORPHINE SO4 15MG TAB,SA TAKE ONE TABLET BY MOUTH EVERY 12 HOURS MUST LAST 28 DAYS OR MORE MAY CAUSE CONSTIPA TION. SWALLOW WHOLE; DO NOT CRUSH OR CHEW. ORAL DISCONT INUED 01/23/2024 [id number] 4 Gilda TORRES 2023 56 [place] [facility] MORPHINE SO4 15MG TAB,SA TAKE ONE TABLET BY MOUTH EVERY 12 HOURS THIS QUANTITY MUST LAST 28 DAYS OR MORE MAY CAUSE CONSTIPA TION. SWALLOW WHOLE; DO NOT CRUSH OR CHEW. ORAL DISCONT INUED 12/26/2023 [id number] 4 Gilda TORRES 2023 56 [facility] MOR[facility]INE SO4 15MG TAB,SA TAKE ONE TABLET BY MOUTH EVERY 12 HOURS MUST LAST 28 DAYS OR MORE MAY CAUSE CONSTIPA TION. SWALLOW WHOLE; DO NOT CRUSH OR CHEW. ORAL 06/11/2024 [id number] 4 Gilda TORRES 2023 56 [facility] Morphine Sulfate (MS Contin) Tablet Controlled/ Sustained Release 15 mg Oral TAKE ONE TABLET BY MOUTH EVERY 12 HOURSMAY CAUSE CONSTIPA TION. SWALLOW WHOLE; DO NOT CRUSH OR CHEW. 02/20/2024 [id number] 4 DARIANA TORRES 2023 56 [facility] Morphine Sulfate (MS Contin) Tablet Controlled/ Sustained Release 15 mg Oral TAKE ONE TABLET BY MOUTH EVERY 12 HOURS MUST LAST 28 DAYS OR MORE MAY CAUSE CONSTIPA TION. SWALLOW WHOLE; DO NOTCRUSH OR CHEW. Discont inued 01/23/2024 [id number] 4 DARIANA TORRES 2023 56 [facility] Morphine Sulfate (MS Contin) Tablet Controlled/ Sustained Release 15 mg Oral TAKE ONE TABLET BY MOUTH EVERY 12 HOURS THIS QUANTITY MUST LAST 28 DAYS OR MORE MAY CAUSE CONSTIPA TION. SWALLOWW HOLE; DO NOT CRUSH OR CHEW. Discont inued 12/26/2023 [id number] 4 DARIANA TORRES 2023 56 [facility] SILDENAFIL CITRATE 100MG TAB TAKE ONE TABLET BY MOUTH EVERY WEEK NEEDED FOR ERECTILE DYSFUNCT ION (TAKE 60 MINUTES PRIOR TO SEXUAL ACTIVITY ) - LIMIT 6 DOSES PER 30 DAYS ORAL 10/29/2024 [id number] THANIA DE 2023 18 [facility] Allergies, Adverse Reactions, Alerts Combined list of allergies from Department of Defense and Veterans Affairs facilities. It does not include entries that were removed or entered in error. Substance Category Reaction Severity Reaction type Status Date Reported Comments Source TETRACYCLINE Drug allergy (disorder) Urticaria active 6 [facility] TETRACYCLINE Drug allergy (disorder) active 9 [facility] Immunizations Combined list of available immunizations from the Department of Defense and Veterans Affairs facilities. Immunization Series Date Given Administered By Site Reaction Lot Number CVX Code Drug Shop Hand Status Comments Source INFLUENZA, INJECTABLE, QUADRIVALENT, PRESERVATIVE FREE 2016 150 complet ed Left Deltoid [facility] MMR 2014 03 complet ed [facility] INFLUENZA, SEASONAL, INJECTABLE, PRESERVATIVE FREE 2014 140 complet ed [facility] INFLUENZA, UNSPECIFIED FORMULATION 2014 88 complet ed [facility] INFLUENZA, SEASONAL, INJECTABLE 2013 141 complet ed [facility] TETANUS DIPHTHERIA AND PERTUSSIS (HISTORICAL) 2012 107 complet ed [facility] TD(ADULT) UNSPECIFIED FORMULATION 2002 139 complet ed [employer] Results Combined list of recent chemistry, hematology and other laboratory results from Department of Defense and Veterans Affairs, ranging from 15 months to all on record, depending upon the facility. Order Name Results Value Reference Range Date Interpretation Specimen Comments Source TSH (MA-PB) THYROTROPIN [UNITS/VOLU ME] IN SERUM OR PLASMA 1.032 u[IU]/mL 0.47 - 5 10/12 Specimen Type: SERUM No comment entered. Ordering Provider: THANIA DE Report Released Date/Time : Oct 12, 2024 11:09 AM Reporting Lab: [place] [facility] [address] [place] [address] Performin g Lab: [place] [facility] [address] [place] [address] [place] [facility] CHOLESTERO L PANEL (PB) CHOLESTEROL [MASS/VOLUM E] IN SERUM OR PLASMA 187 mg/dL 0 - 200 10/12 Specimen Type: PLASMA No comment entered. Ordering Provider: THANIA DE Report Released Date/Time : Oct 12, 2024 11:09 AM Reporting Lab: [place] [facility] [address] [place] [address] Performin g Lab: [place] [facility] [address] [place] [address] [place] [facility] CHOLESTERO L PANEL (PB) TRIGLYCERID E [MASS/VOLUM E] IN SERUM OR PLASMA 119 mg/dL 0 - 150 10/12 Specimen Type: PLASMA No comment entered. Ordering Provider: THANIA DE Report Released Date/Time : Oct 12, 2024 11:09 AM Reporting Lab: [place] [facility] [address] [place] [address] Performin g Lab: [place] [facility] [address] [place] [address] [place] [facility] CHOLESTERO L PANEL (PB) CHOLESTEROL IN LDL [MASS/VOLUM E] IN SERUM OR PLASMA BY CALCULATION 127.0 mg/dL 10/12 Specimen Type: PLASMA No comment entered. Ordering Provider: THANIA DE Report Released Date/Time : Oct 12, 2024 11:09 AM Reporting Lab: [place] [facility] [address] [place] [address] Performin g Lab: [place] [facility] [address] [place] [address] [place] [facility] CHOLESTERO L PANEL (PB) CHOLESTEROL IN HDL [MASS/VOLUM E] IN SERUM OR PLASMA 36.2 mg/dL 40 10/12 L Specimen Type: PLASMA No comment entered. Ordering Provider: THANIA DE Report Released Date/Time : Oct 12, 2024 11:09 AM Reporting Lab: [place] [facility] [address] [place] [address] Performin g Lab: [place] [facility] [address] [place] [address] [place] [facility] CHOLESTERO L PANEL (PB) CHOLESTEROL IN HDL/CHOLEST TODD.TOTAL [MASS RATIO] IN SERUM OR PLASMA 19.4 25 10/12 Specimen Type: PLASMA No comment entered. Ordering Provider: THANIA DE Report Released Date/Time : Oct 12, 2024 11:09 AM Reporting Lab: [place] [facility] [address] [place] [address] Performin g Lab: [place] [facility] [address] [place] [address] [place] [facility] HGA1C HEMOGLOBIN A1C/HEMOGLO BIN.TOTAL IN BLOOD 6.3 4.0 - 6.0 10/12 H Specimen Type: BLOOD No comment entered. Ordering Provider: THANIA DE Report Released Date/Time : Oct 12, 2024 11:09 AM Reporting Lab: [place] [facility] [address] [place] [address] Performin g Lab: [place] [facility] [address] [place] [address] [place] [facility] COMPREHENS SHARIF METABOLIC PANEL CREATININE [MASS/VOLUM E] IN SERUM OR PLASMA 0.93 mg/dL 0.7 - 1.3 10/12 Specimen Type: PLASMA No comment entered. Ordering Provider: THANIA DE Report Released Date/Time : Oct 12, 2024 11:09 AM Reporting Lab: [place] [facility] [address] [place] [address] Performin g Lab: [place] [facility] [address] [place] [address] [place] [facility] COMPREHENS SHARIF METABOLIC PANEL UREA NITROGEN [MASS/VOLUM E] IN SERUM OR PLASMA 13 mg/dL 9 - 25 10/12 Specimen Type: PLASMA No comment entered. Ordering Provider: THANIA DE Report Released Date/Time : Oct 12, 2024 11:09 AM Reporting Lab: [place] [facility] [address] [place] [address] Performin g Lab: [place] [facility] [address] [place] [address] [place] [facility] COMPREHENS SHARIF METABOLIC PANEL GLUCOSE [MASS/VOLUM E] IN SERUM OR PLASMA 108 mg/dL 72 - 99 10/12 H Specimen Type: PLASMA No comment entered. Ordering Provider: THANIA DE Report Released Date/Time : Oct 12, 2024 11:09 AM Reporting Lab: [place] [facility] [address] [place] [address] Performin g Lab: [place] [facility] [address] [place] [address] [place] [facility] COMPREHENS SHARIF METABOLIC PANEL SODIUM [MOLES/VOLU ME] IN SERUM OR PLASMA 141 meq/L 136 - 145 10/12 Specimen Type: PLASMA No comment entered. Ordering Provider: THANIA DE Report Released Date/Time : Oct 12, 2024 11:09 AM Reporting Lab: [place] [facility] [address] [place] [id number] Performin g Lab: [place] [facility] [address] [place] [phone] [place] [facility] COMPREHENS SHARIF METABOLIC PANEL POTASSIUM [MOLES/VOLU ME] IN SERUM OR PLASMA 4.4 meq/L 3.5 - 5 10/12 Specimen Type: PLASMA No comment entered. Ordering Provider: THANIA DE Report Released Date/Time : Oct 12, 2024 11:09 AM Reporting Lab: [place] [facility] [address] [place] [address] Performin g Lab: [place] [facility] [address] [place] [address] [place] [facility] COMPREHENS SHARIF METABOLIC PANEL CHLORIDE [MOLES/VOLU ME] IN SERUM OR PLASMA 105 meq/L 98 - 107 10/12 Specimen Type: PLASMA No comment entered. Ordering Provider: THANIA DE Report Released Date/Time : Oct 12, 2024 11:09 AM Reporting Lab: [place] [facility] [address] [place] [address] Performin g Lab: [place] [facility] [address] [place] [address] [place] [facility] COMPREHENS SHARIF METABOLIC PANEL CARBON DIOXIDE, TOTAL [MOLES/VOLU ME] IN SERUM OR PLASMA 26 meq/L 22 - 31 10/12 Specimen Type: PLASMA No comment entered. Ordering Provider: THANIA DE Report Released Date/Time : Oct 12, 2024 11:09 AM Reporting Lab: [place] [facility] [address] [place] [address] Performin g Lab: [place] [facility] [address] [place] [address] 8 [place] [facility] COMPREHENS SHARIF METABOLIC PANEL CALCIUM [MASS/VOLUM E] IN SERUM OR PLASMA 9.1 mg/dL 8.4 - 10.4 10/12 Specimen Type: PLASMA No comment entered. Ordering Provider: THANIA DE Report Released Date/Time : Oct 12, 2024 11:09 AM Reporting Lab: [place] [facility] [address] [place] [address] 8 Performin g Lab: [place] [facility] [address] [place] [address] [place] [facility] COMPREHENS SHARIF METABOLIC PANEL PROTEIN [MASS/VOLUM E] IN SERUM OR PLASMA 7.2 g/dL 6 - 8.6 10/12 Specimen Type: PLASMA No comment entered. Ordering Provider: THANIA DE Report Released Date/Time : Oct 12, 2024 11:09 AM Reporting Lab: [place] [facility] [address] [place] [address] 8 Performin g Lab: [place] [facility] [address] [place] [address] 8 [place] [facility] COMPREHENS SHARIF METABOLIC PANEL ALBUMIN [MASS/VOLUM E] IN SERUM OR PLASMA 4.5 g/dL 3.4 - 5 10/12 Specimen Type: PLASMA No comment entered. Ordering Provider: THANIA DE Report Released Date/Time : Oct 12, 2024 11:09 AM Reporting Lab: [place] [facility] [address] [place] [address] Performin g Lab: [place] [facility] [address] [place] [address] [place] [facility] COMPREHENS SHARIF METABOLIC PANEL BILIRUBIN.T OTAL [MASS/VOLUM E] IN SERUM OR PLASMA 0.6 mg/dL 0.2 - 1.2 10/12 Specimen Type: PLASMA No comment entered. Ordering Provider: THANIA DE Report Released Date/Time : Oct 12, 2024 11:09 AM Reporting Lab: [place] [facility] [address] [place] [address] Performin g Lab: [place] [facility] [address] [place] [address] [place] [facility] COMPREHENS SHARIF METABOLIC PANEL ALKALINE PHOSPHATASE [ENZYMATIC ACTIVITY/VO LUME] IN SERUM OR PLASMA 38 U/L 40 - 150 10/12 L Specimen Type: PLASMA No comment entered. Ordering Provider: THANIA DE Report Released Date/Time : Oct 12, 2024 11:09 AM Reporting Lab: [place] [facility] [address] [place] [address] Performin g Lab: [place] [facility] [address] [place] [address] 8 [place] [facility] COMPREHENS SHARIF METABOLIC PANEL ASPARTATE AMINOTRANSF ERASE [ENZYMATIC ACTIVITY/VO LUME] IN SERUM OR PLASMA 39 U/L 5 - 34 10/12 H Specimen Type: PLASMA No comment entered. Ordering Provider: THANIA DE Report Released Date/Time : Oct 12, 2024 11:09 AM Reporting Lab: [place] [facility] [address] [place] [address] 8 Performin g Lab: [place] [facility] [address] [place] [address] 8 [place] [facility] COMPREHENS SHARIF METABOLIC PANEL ALANINE AMINOTRANSF ERASE [ENZYMATIC ACTIVITY/VO LUME] IN SERUM OR PLASMA 96 U/L 8 - 40 10/12 H Specimen Type: PLASMA No comment entered. Ordering Provider: THANIA DE Report Released Date/Time : Oct 12, 2024 11:09 AM Reporting Lab: [place] [facility] [address] [place] [address] Performin g Lab: [place] [facility] [address] [place] [address] [place] [facility] COMPREHENS SHARIF METABOLIC PANEL GLOMERULAR FILTRATION RATE/1.73 SQ M.PREDICTED [VOLUME RATE/AREA] IN SERUM, PLASMA OR BLOOD BY CREATININE- BASED FORMULA (CKD-EPI 2020) 95 10/12 Specimen Type: PLASMA No comment entered. Ordering Provider: THANIA DE Report Released Date/Time : Oct 12, 2024 11:09 AM Reporting Lab: [place] [facility] [address] [place] [address] 8 Performin g Lab: [place] [facility] [address] [place] [address] [place] [facility] CBC LEUKOCYTES [#/VOLUME] IN BLOOD BY AUTOMATED COUNT 6.7 10*3/uL 3.6 - 11.2 10/12 Specimen Type: BLOOD No comment entered. Ordering Provider: THANIA DE Report Released Date/Time : Oct 12, 2024 11:09 AM Reporting Lab: [place] [facility] [address] [place] [address] 8 Performin g Lab: [place] [facility] [address] [place] [address] [place] [facility] CBC ERYTHROCYTE S [#/VOLUME] IN BLOOD BY AUTOMATED COUNT 5.27 10*6/uL 4.10 - 5.70 10/12 Specimen Type: BLOOD No comment entered. Ordering Provider: THANIA DE Report Released Date/Time : Oct 12, 2024 11:09 AM Reporting Lab: [place] [facility] [address] [place] [address] 8 Performin g Lab: [place] [facility] [address] [place] [address] 8 [place] [facility] CBC HEMOGLOBIN [MASS/VOLUM E] IN BLOOD 16.9 g/dL 13.1 - 16.8 10/12 H Specimen Type: BLOOD No comment entered. Ordering Provider: THANIA DE Report Released Date/Time : Oct 12, 2024 11:09 AM Reporting Lab: [place] [facility] [address] [place] [address] 8 Performin g Lab: [place] [facility] [address] [place] [address] 8 [place] [facility] CBC HEMATOCRIT [VOLUME FRACTION] OF BLOOD 48.8 38.2 - 48.4 10/12 H Specimen Type: BLOOD No comment entered. Ordering Provider: THANIA DE Report Released Date/Time : Oct 12, 2024 11:09 AM Reporting Lab: [place] [facility] [address] [place] [address] 8 Performin g Lab: [place] [facility] [address] [place] [address] [place] [facility] CBC MCV [ENTITIC VOLUME] BY AUTOMATED COUNT 92.6 fL 80.0 - 100.0 10/12 Specimen Type: BLOOD No comment entered. Ordering Provider: THANIA DE Report Released Date/Time : Oct 12, 2024 11:09 AM Reporting Lab: [place] [facility] [address] [place] [address] 8 Performin g Lab: [place] [facility] [address] [place] [address] 8 [place] [facility] CBC MCH [ENTITIC MASS] BY AUTOMATED COUNT 32.1 pg 27.0 - 34.0 10/12 Specimen Type: BLOOD No comment entered. Ordering Provider: THANIA DE Report Released Date/Time : Oct 12, 2024 11:09 AM Reporting Lab: [place] [facility] [address] [place] [address] 8 Performin g Lab: [place] [facility] [address] [place] [address] [place] [facility] CBC MCHC [MASS/VOLUM E] BY AUTOMATED COUNT 34.6 g/dL 33.0 - 36.0 10/12 Specimen Type: BLOOD No comment entered. Ordering Provider: THANIA DE Report Released Date/Time : Oct 12, 2024 11:09 AM Reporting Lab: [place] [facility] [address] [place] [address] Performin g Lab: [place] [facility] [address] [place] [address] [place] [facility] CBC PLATELETS [#/VOLUME] IN BLOOD BY AUTOMATED COUNT 232 10*3/uL 150 - 400 10/12 Specimen Type: BLOOD No comment entered. Ordering Provider: THANIA DE Report Released Date/Time : Oct 12, 2024 11:09 AM Reporting Lab: [place] [facility] [address] [place] [address] 8 Performin g Lab: [place] [facility] [address] [place] [address] 8 [place] [facility] CBC PLATELET MEAN VOLUME [ENTITIC VOLUME] IN BLOOD BY AUTOMATED COUNT 10.7 fL 7.5 - 11.2 10/12 Specimen Type: BLOOD No comment entered. Ordering Provider: THANIA DE Report Released Date/Time : Oct 12, 2024 11:09 AM Reporting Lab: [place] [facility] [address] [place] [address] 8 Performin g Lab: [place] [facility] [address] [place] [address] 8 [place] [facility] CBC ERYTHROCYTE DISTRIBUTIO N WIDTH [RATIO] BY AUTOMATED COUNT 12.0 11.8 - 15.1 10/12 Specimen Type: BLOOD No comment entered. Ordering Provider: THANIA DE Report Released Date/Time : Oct 12, 2024 11:09 AM Reporting Lab: [place] [facility] [address] [place] [address] 8 Performin g Lab: [place] [facility] [address] [place] [address] 8 [place] [facility] CBC LYMPHOCYTES /100 LEUKOCYTES IN BLOOD BY AUTOMATED COUNT 39.8 10/12 Specimen Type: BLOOD No comment entered. Ordering Provider: THANIA DE Report Released Date/Time : Oct 12, 2024 11:09 AM Reporting Lab: [place] [facility] [address] [place] [address] 8 Performin g Lab: [place] [facility] [address] [place] [address] 8 [place] [facility] CBC MONOCYTES/1 00 LEUKOCYTES IN BLOOD BY AUTOMATED COUNT 8.4 10/12 Specimen Type: BLOOD No comment entered. Ordering Provider: THANIA DE Report Released Date/Time : Oct 12, 2024 11:09 AM Reporting Lab: [place] [facility] [address] [place] [address] 8 Performin g Lab: [place] [facility] [address] [place] [address] 8 [place] [facility] CBC NEUTROPHILS /100 LEUKOCYTES IN BLOOD BY AUTOMATED COUNT 49.2 10/12 Specimen Type: BLOOD No comment entered. Ordering Provider: THANIA DE Report Released Date/Time : Oct 12, 2024 11:09 AM Reporting Lab: [place] [facility] [address] [place] [address] 8 Performin g Lab: [place] [facility] [address] [place] [address] 8 [place] [facility] CBC EOSINOPHILS /100 LEUKOCYTES IN BLOOD BY AUTOMATED COUNT 1.8 10/12 Specimen Type: BLOOD No comment entered. Ordering Provider: THANIA DE Report Released Date/Time : Oct 12, 2024 11:09 AM Reporting Lab: [place] [facility] [address] [place] [address] 8 Performin g Lab: [place] [facility] [address] [place] [address] 8 [place] [facility] CBC BASOPHILS/1 00 LEUKOCYTES IN BLOOD BY AUTOMATED COUNT 0.6 10/12 Specimen Type: BLOOD No comment entered. Ordering Provider: THANIA DE Report Released Date/Time : Oct 12, 2024 11:09 AM Reporting Lab: [place] [facility] [address] [place] [address] 8 Performin g Lab: [place] [facility] [address] [place] [address] 8 [place] [facility] CBC LYMPHOCYTES [#/VOLUME] IN BLOOD BY AUTOMATED COUNT 2.65 10*3/uL 0.77 - 4.50 10/12 Specimen Type: BLOOD No comment entered. Ordering Provider: THANIA DE Report Released Date/Time : Oct 12, 2024 11:09 AM Reporting Lab: [place] [facility] [address] [place] [address] 8 Performin g Lab: [place] [facility] [address] [place] [address] 8 [place] [facility] CBC MONOCYTES [#/VOLUME] IN BLOOD BY AUTOMATED COUNT 0.56 10*3/uL 0.19 - 0.8 10/12 Specimen Type: BLOOD No comment entered. Ordering Provider: THANIA DE Report Released Date/Time : Oct 12, 2024 11:09 AM Reporting Lab: [place] [facility] [address] [place] [address] 8 Performin g Lab: [place] [facility] [address] [place] [address] 8 [place] [facility] CBC NEUTROPHILS [#/VOLUME] IN BLOOD BY AUTOMATED COUNT 3.27 10*3/uL 2.10 - 8.00 10/12 Specimen Type: BLOOD No comment entered. Ordering Provider: THANIA DE Report Released Date/Time : Oct 12, 2024 11:09 AM Reporting Lab: [place] [facility] [address] [place] [address] 8 Performin g Lab: [place] [facility] [address] [place] [address] 8 [place] [facility] CBC EOSINOPHILS [#/VOLUME] IN BLOOD BY AUTOMATED COUNT 0.12 10*3/uL 0.00 - 0.60 10/12 Specimen Type: BLOOD No comment entered. Ordering Provider: THANIA DE Report Released Date/Time : Oct 12, 2024 11:09 AM Reporting Lab: [place] [facility] [address] [place] [address] 8 Performin g Lab: [place] [facility] [address] [place] [address] 8 [place] [facility] CBC BASOPHILS [#/VOLUME] IN BLOOD BY AUTOMATED COUNT 0.04 10*3/uL 0.00 - 0.20 10/12 Specimen Type: BLOOD No comment entered. Ordering Provider: THANIA DE Report Released Date/Time : Oct 12, 2024 11:09 AM Reporting Lab: [place] [facility] [address] [place] [address] 8 Performin g Lab: [place] [facility] [address] [place] [address] 8 [place] [facility] CBC IMMATURE GRANULOCYTE S/100 LEUKOCYTES IN BLOOD BY AUTOMATED COUNT 0.2 10/12 Specimen Type: BLOOD No comment entered. Ordering Provider: THANIA DE Report Released Date/Time : Oct 12, 2024 11:09 AM Reporting Lab: [place] [facility] [address] [place] [address] 8 Performin g Lab: [place] [facility] [address] [place] [address] 8 [place] [facility] CBC IMMATURE GRANULOCYTE S [#/VOLUME] IN BLOOD BY AUTOMATED COUNT 0.01 10*3/uL 0.00 - 0.05 10/12 Specimen Type: BLOOD No comment entered. Ordering Provider: THANIA DE Report Released Date/Time : Oct 12, 2024 11:09 AM Reporting Lab: [place] [facility] [address] [place] [address] 8 Performin g Lab: [place] [facility] [address] [place] [address] 8 [place] [facility] OCCULT BLOOD FIT X1 SCREEN HEMOGLOBIN. GASTROINTES TINAL.LOWER [PRESENCE] IN STOOL BY IMMUNOASSAY Negative 11/10 Specimen Type: FECES No comment entered. Ordering Provider: THANIA DE Report Released Date/Time : Oct 29, 2023 01:31 PM Reporting Lab: [place] [facility] [address] [place] [address] 8 Performin g Lab: [place] [facility] [address] [place] [address] [place] HGA[facility]C HEMOGLOBIN A1C/HEMOGLO BIN.TOTAL IN BLOOD 5.9 4.0 - 6.0 10/28 Specimen Type: BLOOD No comment entered. Ordering Provider: THANIA DE Report Released Date/Time : Nov 06, 2022 02:49 PM Reporting Lab: [place] [facility] [address] [place] [address] 8 Performin g Lab: [place] [facility] [address] [place] [address] [facility] COMPREHENS SHARIF METABOLIC PANEL CREATININE [MASS/VOLUM E] IN SERUM OR PLASMA 0.88 mg/dL 0.7 - 1.3 10/28 Specimen Type: PLASMA No comment entered. Ordering Provider: THANIA DE Report Released Date/Time : Nov 06, 2022 02:49 PM Reporting Lab: [place] [facility] [address] [place] [address] 8 Performin g Lab: [place] [facility] [address] [place] [address] 8 [facility] COMPREHENS SHARIF METABOLIC PANEL UREA NITROGEN [MASS/VOLUM E] IN SERUM OR PLASMA 17 mg/dL 9 - 25 10/28 Specimen Type: PLASMA No comment entered. Ordering Provider: THANIA DE Report Released Date/Time : Nov 06, 2022 02:49 PM Reporting Lab: [place] [facility] [address] [place] [address] 8 Performin g Lab: [place] [facility] [address] [place] [address] 8 [facility] COMPREHENS SHARIF METABOLIC PANEL GLUCOSE [MASS/VOLUM E] IN SERUM OR PLASMA 107 mg/dL 72 - 99 10/28 H Specimen Type: PLASMA No comment entered. Ordering Provider: THANIA DE Report Released Date/Time : Nov 06, 2022 02:49 PM Reporting Lab: [place] [facility] [address] [place] [address] 8 [facility]: [place] [facility] [address] [place] [address] 8 [facility] COMPREHENS SHARIF METABOLIC PANEL SODIUM [MOLES/VOLU ME] IN SERUM OR PLASMA 141 meq/L 136 - 145 10/28 Specimen Type: PLASMA No comment entered. Ordering Provider: THANIA DE Report Released Date/Time : Nov 06, 2022 02:49 PM Reporting Lab: [place] [facility] [address] [place] [address] 8 Performin g Lab: [place] [facility] [address] [place] [address] 8 [facility] COMPREHENS SHARIF METABOLIC PANEL POTASSIUM [MOLES/VOLU ME] IN SERUM OR PLASMA 4.0 meq/L 3.5 - 5 10/28 Specimen Type: PLASMA No comment entered. Ordering Provider: THANIA DE Report Released Date/Time : Nov 06, 2022 02:49 PM Reporting Lab: [place] [facility] [address] [place] [address] 8 Performin g Lab: [place] [facility] [address] [place] [address] 8 [facility] COMPREHENS SHARIF METABOLIC PANEL CHLORIDE [MOLES/VOLU ME] IN SERUM OR PLASMA 104 meq/L 98 - 107 10/28 Specimen Type: PLASMA No comment entered. Ordering Provider: THANIA DE Report Released Date/Time : Nov 06, 2022 02:49 PM Reporting Lab: [place] [facility] [address] [place] [address] 8 Performin g Lab: [place] [facility] [address] [place] [address] [facility] COMPREHENS SHARIF METABOLIC PANEL CARBON DIOXIDE, TOTAL [MOLES/VOLU ME] IN SERUM OR PLASMA 27 meq/L 22 - 31 10/28 Specimen Type: PLASMA No comment entered. Ordering Provider: THANIA DE Report Released Date/Time : Nov 06, 2022 02:49 PM Reporting Lab: [place] [facility] [address] [place] [address] 8 Performin g Lab: [place] [facility] [address] [place] [address] 8 [facility] COMPREHENS SHARIF METABOLIC PANEL CALCIUM [MASS/VOLUM E] IN SERUM OR PLASMA 9.2 mg/dL 8.4 - 10.4 10/28 Specimen Type: PLASMA No comment entered. Ordering Provider: THANIA DE Report Released Date/Time : Nov 06, 2022 02:49 PM Reporting Lab: [place] [facility] [address] [place] [address] 8 Performin g Lab: [place] [facility] [address] [place] [address] 8 [facility] COMPREHENS SHARIF METABOLIC PANEL PROTEIN [MASS/VOLUM E] IN SERUM OR PLASMA 7.7 g/dL 6 - 8.6 10/28 Specimen Type: PLASMA No comment entered. Ordering Provider: THANIA DE Report Released Date/Time : Nov 06, 2022 02:49 PM Reporting Lab: [place] [facility] [address] [place] [address] 8 [facility]formin g Lab: [place] [facility] [address] [place] [address] [facility] COMPREHENS SHARIF METABOLIC PANEL ALBUMIN [MASS/VOLUM E] IN SERUM OR PLASMA 4.6 g/dL 3.4 - 5 10/28 Specimen Type: PLASMA No comment entered. Ordering Provider: THANIA DE Report Released Date/Time : Nov 06, 2022 02:49 PM Reporting Lab: [place] [facility] [address] [place] [address] 8 Performin g Lab: [place] [facility] [address] [place] [address] 8 [facility] COMPREHENS SHARIF METABOLIC PANEL BILIRUBIN.T OTAL [MASS/VOLUM E] IN SERUM OR PLASMA 0.5 mg/dL 0.2 - 1.2 10/28 Specimen Type: PLASMA No comment entered. Ordering Provider: THANIA DE Report Released Date/Time : Nov 06, 2022 02:49 PM Reporting Lab: [place] [facility] [address] [place] [address] 8 [facility]formin g [facility]: [place] [facility] [address] [place] [address] 8 [facility] COMPREHENS SHARIF METABOLIC PANEL ALKALINE PHOSPHATASE [ENZYMATIC ACTIVITY/VO LUME] IN SERUM OR PLASMA 40 U/L 40 - 150 10/28 Specimen Type: PLASMA No comment entered. Ordering Provider: THANIA DE Report Released Date/Time : Nov 06, 2022 02:49 PM Reporting Lab: [place] [facility] [address] [place] [address] 8 Performin g Lab: [place] [facility] [address] [place] [address] 8 [facility] COMPREHENS SHARIF METABOLIC PANEL ASPARTATE AMINOTRANSF ERASE [ENZYMATIC ACTIVITY/VO LUME] IN SERUM OR PLASMA 41 U/L 5 - 34 10/28 H Specimen Type: PLASMA No comment entered. Ordering Provider: THANIA DE Report Released Date/Time : Nov 06, 2022 02:49 PM Reporting Lab: [place] [facility] [address] [place] [address] 8 Performin g Lab: [place] [facility] [address] [place] [address] 8 [facility] COMPREHENS SHARIF METABOLIC PANEL ALANINE AMINOTRANSF ERASE [ENZYMATIC ACTIVITY/VO LUME] IN SERUM OR PLASMA 98 U/L 8 - 40 10/28 H Specimen Type: PLASMA No comment entered. Ordering Provider: THANIA DE Report Released Date/Time : Nov 06, 2022 02:49 PM Reporting Lab: [place] [facility] [address] [place] [address] 8 [facility]formin g [facility]: [place] [facility] [address] [place] [address] 8 [facility] COMPREHENS SHARIF METABOLIC PANEL GLOMERULAR FILTRATION RATE/1.73 SQ M.PREDICTED [VOLUME RATE/AREA] IN SERUM, PLASMA OR BLOOD BY CREATININE- BASED FORMULA (CKD-EPI 2020) 100 10/28 Specimen Type: PLASMA No comment entered. Ordering Provider: THANIA DE Report Released Date/Time : Nov 06, 2022 02:49 PM Reporting Lab: [place] [facility] [address] [place] [address] Performin g Lab: [place] [facility] [address] [place] [address] [facility] CHOLESTERO L PANEL (PB) CHOLESTEROL [MASS/VOLUM E] IN SERUM OR PLASMA 219 mg/dL 0 - 200 10/28 H Specimen Type: PLASMA No comment entered. Ordering Provider: THANIA DE Report Released Date/Time : Nov 06, 2022 02:49 PM Reporting Lab: [place] [facility] [address] [place] [address] Performin g Lab: [place] [facility] [address] [place] [address] [facility] CHOLESTERO L PANEL (PB) TRIGLYCERID E [MASS/VOLUM E] IN SERUM OR PLASMA 104 mg/dL 0 - 150 10/28 Specimen Type: PLASMA No comment entered. Ordering Provider: TAHNIA DE Report Released Date/Time : Nov 06, 2022 02:49 PM Reporting Lab: [place] [facility] [address] [place] [address] Performin g Lab: [place] [facility] [address] [place] [address] [facility] CHOLESTERO L PANEL (PB) CHOLESTEROL IN LDL [MASS/VOLUM E] IN SERUM OR PLASMA BY CALCULATION 157.9 mg/dL 10/28 Specimen Type: PLASMA No comment entered. Ordering Provider: THANIA DE Report Released Date/Time : Nov 06, 2022 02:49 PM Reporting Lab: [place] [facility] [address] [place] [address] Performin g Lab: [place] [facility] [address] [place] [address] [facility] [facility] CHOLESTERO L PANEL (PB) CHOLESTEROL IN HDL [MASS/VOLUM E] IN SERUM OR PLASMA 40.3 mg/dL 40 10/28 H Specimen Type: PLASMA No comment entered. Ordering Provider: THANIA DE Report Released Date/Time : Nov 06, 2022 02:49 PM Reporting Lab: [place] [facility] [address] [place] [address] Performin g Lab: [place] [facility] [address] [place] [address] [facility] CHOLESTERO L PANEL (PB) CHOLESTEROL IN HDL/CHOLEST TODD.TOTAL [MASS RATIO] IN SERUM OR PLASMA 18.4 25 10/28 Specimen Type: PLASMA No comment entered. Ordering Provider: THANIA DE Report Released Date/Time : Nov 06, 2022 02:49 PM Reporting Lab: [place] [facility] [address] [place] [address] Performin g Lab: [place] [facility] [address] [place] [address] [facility] TSH (MA-PB) THYROTROPIN [UNITS/VOLU ME] IN SERUM OR PLASMA 1.723 u[IU]/mL 0.47 - 5 10/28 Specimen Type: SERUM No comment entered. Ordering Provider: THANIA DE Report Released Date/Time : Nov 06, 2022 02:49 PM Reporting Lab: [place] [facility] [address] [place] [address] Performin g Lab: [place] [facility] [address] [place] [address] [facility] Vital Signs Combined list of inpatient and outpatient Vital Signs from Department of Defense and Veterans Affairs, ranging from 12 months to all on record, depending upon the facility. Vital Sign Value Date Comments Source SYSTOLIC BLOOD PRESSURE 148 01/17/2025 09:24:00 [facility] DIASTOLIC BLOOD PRESSURE 79 01/17/2025 09:24:00 [facility] PULSE OXIMETRY 97 % 01/17/2025 09:24:00 [place] [facility] WEIGHT 263.7 01/17/2025 09:24:00 [place] [facility] BMI 39 kg/m2 01/17/2025 09:24:00 [place] [facility] PAIN 8 01/17/2025 09:24:00 [place] [facility] HEIGHT 69.0 01/17/2025 09:24:00 [place] [facility] TEMPERATURE 97.9 01/17/2025 09:24:00 [place] [facility] PULSE 72 01/17/2025 09:24:00 [place] [facility] RESPIRATION 18 01/17/2025 09:24:00 [place] [facility] SYSTOLIC BLOOD PRESSURE 158 10/21/2024 11:31:00 [place] [facility] DIASTOLIC BLOOD PRESSURE 104 10/21/2024 11:31:00 [place] [facility] PULSE OXIMETRY 97 10/21/2024 11:31:00 [place] [facility] WEIGHT 287.9 10/21/2024 11:31:00 [place] [facility] BMI 43 kg/m2 10/21/2024 11:31:00 [place] [facility] PAIN 6 10/21/2024 11:31:00 [place] [facility] PULSE 82 10/21/2024 11:31:00 [place] [facility] RESPIRATION 18 10/21/2024 11:31:00 [place] [facility] Encounters Combined list of: 1) Encounters from Department of Veterans Affairs facilities going backup to the last 18 months, not all VA inpatient encounters are included; 2) Encounters from the Department of Defense facilities going backup to 280 months. 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 N [place] [facility] SPECIAL SUPPLIES PHYS/QHP [id number] Diagnos is: ICD-10- CM G47.30 Sleep apnea, unspeci fied POYNOR,JHOAN HELLE B 09/22 [facility] [facility] [id number] 10[facility]07 [facility] Encounter [id number] 10/11 [place] [facility] Outpatient Encounter [id number] 10/15 [facility] N [facility] Outpatient Encounter [id number] 10/20 [facility] N [facility] Outpatient Encounter [id number] 10/28 [facility] N [facility] Outpatient Encounter [id number] 10/28 [facility] N [facility] OFFICE O/P EST MOD 30 MIN [id number] Diagnos is: ICD-10- CM I10 Essenti al (primar y) hyperte nsion Vale DE 10/28 [facility] Outpatient Encounter [id number] 10/28 [facility] Outpatient Encounter [id number] 10/28 [facility] N [facility] Outpatient Encounter [id number] 10/28 [facility] CB OFF/OP EST DECEMBER X REQ PHY/QHP [id number] Diagnos is: ICD-10- CM I10 Essenti al (primar y) hyperte nsion Kentrell BRAY 11/11 [facility] TTE W/DOPPLER COMPLETE [id number] Diagnos is: ICD-10- CM R01.1 Cardiac murmur, unspeci MARGARITO French 11/18 [facility] [id number] 11/25 [facility] Outpatient Encounter [id number] 12/16 [facility] Outpatient Encounter [id number]. [id number] 12/23 [facility] N [facility] Outpatient Encounter [id number] 12/23 [facility] Outpatient Encounter [id number]. [id number] 12/23 [facility] Outpatient Encounter [id number] 12/28 [facility] SPECIAL [facility]PPL[facility] PHYS/QHP [id number] Diagnos is: ICD-10- CM G47.30 Sleep apnea, unspeci fied WILLCARONJHOAN B 12/28 [place] [facility] [place] [facility] Outpatient Encounter [id number] 12/29 [place] [facility] Outpatient Encounter [id number] 01/20 [facility] Out[facility]counter [id number] 01/27 [facility] Outpatient Encounter [id number] Diagnos is: ICD-10- CM G47.30 Sleep apnea, unspeci fied ZAKIYA ACEVEDO 01/28 [facility] Outpatient Encounter [id number] 02/17 [facility] Outpatient Encounter [id number] 02/17 [facility] Outpatient Encounter [id number] TRISTAN CHAVEZ T 03/01 [facility] Outpatient Encounter [id number] 03/15 [facility] Outpatient Encounter [id number] 03/17 [facility] Outpatient Encounter [id number] 04/01 [facility] [place] [facility] Outpatient Encounter [id number] 04/05 [place] [facility] Outpatient Encounter [id number] 04/14 [facility] REMOVE IMPACTED EAR WAX UNI [id number] Diagnos is: ICD-10- CM H91.93 Unspeci fied hearing loss, bilater al LENO GARCES VIOLET L 04/21 [facility] FAC[facility] FEE [id number] Diagnos is: ICD-10- CM H90.3 Sensori neural hearing loss, bilater al STYLESROBE RT P 04/26 [facility] BOTH EARS [id number] Diagnos is: ICD-10- CM H90.3 Sensori neural hearing loss, bilater al STYLES,ROBE RT P 04/26 [place] [facility] Outpatient Encounter [id number] 05/04 [facility] Outpatient Encounter [id number] 05/06 [facility] N [facility] Outpatient Encounter [id number] 05/09 [facility] [place] [facility] CONFORMITY EVALUATION [id number] Diagnos is: ICD-10- CM Z46.1 Encount er for fitting and adjustm ent of hearing aid JAYA STYLES RT P 06/07 [place] [facility] FAC[facility] FEE [id number] Diagnos is: ICD-10- CM Z46.1 Encount er for fitting and adjustm ent of hearing aid STYLESJAYA POTTER RT P 06/07 [facility] Outpatient Encounter [id number] 06/08 [facility] Outpatient Encounter [id number] 06/14 [facility] Outpatient Encounter [id number] 06/16 [facility] Outpatient Encounter [id number] 07/13 [facility] Outpatient Encounter [id number] 07/19 [facility] Outpatient Encounter [id number] 08/09 [facility] Outpatient Encounter [id number] 08/09 [facility] TELEHEALTH FACILITY FEE [id number] Diagnos is: ICD-10- CM Z46.1 Encount er for fitting and adjustm ent of hearing aid JAYA STYLES RT P 08/09 [facility] [id number] Diagnos is: ICD-10- CM Z46.1 Encount er for fitting and adjustm ent of hearing aid JAYA STYLES RT P 08/09 [facility] NQHP OL DIG ASSMT&MGMT 5-10 [id number] Diagnos is: ICD-10- CM G89.29 Other chronic pain YAHIR ORTIZ V 08/24 [place] [facility] Outpatient Encounter [id number] 10/04 [facility] Outpatient Encounter [id number] 10/04 [facility] Out[facility] Encounter [id number] 10/05 [facility] OFFICE O/P EST MOD 30 MIN [id number] Diagnos is: ICD-10- CM F32.9 Major depress sharif disorde r, single episode , unspeci fied [place] 10/21 [facility] WO ESTIM 1ST 15 MIN [id number] Diagnos is: ICD-10- CM M51.16 Interve rtebral disc disorde rs w radicul opathy, lumbar region [place] DE 10/25 [facility] ACUP 1/> WO ESTIM 1ST 15 MIN [id number] Diagnos is: ICD-10- CM M25.512 Pain in left shoulde r [place] DE 11/01 [facility] Outpatient Encounter [id number] CORNELIUS KAPOOR R 11/03 [facility] Outpatient Encounter [id number] 11/09 [facility] Outpatient Encounter [id number] SANTINO,T MOOSE 11/15 [facility]/> WO ESTIM 1ST 15 MIN [id number] Diagnos is: ICD-10- CM M54.50 Low back pain, unspeci fied SANTINO,T MOOSE 11/22 [facility] Outpatient Encounter [id number] 11/29 [facility] 1/> WO ESTIM 1ST 15 MIN [id number] Diagnos is: ICD-10- CM M51.16 Interve rtebral disc disorde rs w radicul opathy, lumbar region SANTINO,T MOOSE 11/29 [facility] Outpatient Encounter [id number] 11/30 [facility] Outpatient Encounter [id number] 12/02 [facility] ACUP 1/> WO ESTIM 1ST 15 MIN [id number] Diagnos is: ICD-10- CM M51.16 Interve rtebral disc disorde rs w radicul opathy, lumbar region SANTINO,T MOOSE 12/06 [facility] ACUP 1/> WO ESTIM 1ST 15 MIN [id number] Diagnos is: ICD-10- CM M25.512 Pain in left shoulde r SANTINO,T MOOSE 12/20 [facility] Outpatient Encounter [id number] 12/22 [facility] ACUP 1/> WO ESTIM 1ST 15 MIN [id number] Diagnos is: ICD-10- CM M54.2 Cervica lgia SANTINO,T MOOSE 12/27 [facility] Outpatient Encounter [id number] 12/29 [facility] ACUP 1/> WO ESTIM 1ST 15 MIN [id number] Diagnos is: ICD-10- CM M51.16 Interve rtebral disc disorde rs w radicul opathy, lumbar region SANTINO,T MOOSE 01/03 [facility] ACUP 1/> WO ESTIM 1ST 15 MIN [id number] Diagnos is: ICD-10- CM M54.2 Cervica lgia SANTINO,T MOOSE 01/12 [facility] OFFICE O/P EST LOW 20 MIN [id number] Diagnos is: ICD-10- CM M51.16 Interve rtebral disc disorde rs w radicul opathy, lumbar region SANTINO,T MOOSE 01/17 [facility] FUNDUS PHOTOGRAPH Y W/I&R [id number] Diagnos is: ICD-10- CM Z13.5 Encount er for screeni ng for eye and ear disorde rs [facility]AS ROBLES 01/17 [facility] [place] [facility] IMG RTA DETC/MNTR DS PHY/QHP [id number] Diagnos is: ICD-10- CM Z13.5 Encount er for screeni ng for eye and ear disorde rs Torres GARCIA 01/17 [place] [facility] Outpatient Encounter [id number] NICHOLAS ROBLES 01/17 [facility] Outpatient Encounter [id number] BEVERLY RUEDA 01/25 [facility] Outpatient Encounter [id number] 01/26 [facility] ACUP 1/> WO ESTIM 1ST 15 MIN [id number] Diagnos is: ICD-10- CM M25.512 Pain in left shoulde r SANTINOVale MOOSE 01/31 [facility] [place] [facility] Outpatient Encounter [id number] 02/15 [place] [facility] Outpatient Encounter [id number] BEVERLY RUEDA 02/16 [facility] Procedures Combined list of: 1) Procedures from Department of [facility] Affairs facilities going back up to thelast 18 months, not all [place] non-surgical procedures are included; 2) All procedures from the Department of Defense facilities. 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 03/16/2001 [facility] PHYS/OTH QUALIFIED HEALTH FOUR SLIDE MACHINE SETTER QUALIFIED,EDUCATION,TRAIN,LIC ENSURE/REGULATION (WHEN APPLICABLE) EDUC SER RENDERED TO PATS IN A GRP SETTING (EG,,OBESITY,OR DIABETIC INSTRUCT) 03/16/2001 [facility] AMBULATORY BLOOD PRESSURE MONITORING, UTILIZING REPORT-GENERATING SOFTWARE, AUTOMATED, WORN CONTINUOUSLY FOR 24 HOURS OR LONGER; INCLUDING RECORDING, SCANNING ANALYSIS, INTERPRETATION AND REPORT 04/17/2003 [facility] AUDITORY EVOKED POTENTIALS FOR EVOKED RESPONSE AUDIOMETRY AND/OR TESTING OF THE CENTRAL NERVOUS SYSTEM; COMPREHENSIVE 11/22/2002 [facility] PURE TONE AUDIOMETRY (THRESHOLD); AIR ONLY 10/12/2002 [facility] TYMPANOMETRY (IMPEDANCE TESTING) 10/12/2002 [facility] URINALYSIS, BY DIP STICK OR TABLET REAGENT FOR BILIRUBIN, GLUCOSE, HEMOGLOBIN, KETONES, LEUKOCYTES, NITRITE, PH, PROTEIN, SPEC GRAVITY, UROBILINOGEN, ANY NUMBER OF CONSTITUENTS; W/O MICRO, AUTOMATED 09/30/2002 [facility] AMBULATORY BLOOD PRESSURE MONITORING, UTILIZING REPORT-GENERATING SOFTWARE, AUTOMATED, WORN CONTINUOUSLY FOR 24 HOURS OR LONGER; INCLUDING RECORDING, SCANNING ANALYSIS, INTERPRETATION AND REPORT 09/06/2002 [facility] PURE TONE AUDIOMETRY (THRESHOLD); AIR ONLY 09/06/2002 [facility] SELF-CARE/HOME MANAGMENT TRAIN (EG,ACT OF DAILY LIVING (ADL) &COMPENSAT TRAIN,MEAL PREPARATION,SAFETY PROCS,AND INSTRUCT IN USE OF ASST TECHNOLOGY DEV/ADPT EQUIP) DIR ONE-ON-ONE CONT,EA 15 MINUTES 08/30/2002 [facility] OPHTHALMOLOGICAL SERVICES: MEDICAL EXAMINATION AND EVALUATION WITH INITIATION OF DIAGNOSTIC AND TREATMENT PROGRAM; COMPREHENSIVE, NEW PATIENT, 1 OR MORE VISITS 06/23/2002 [facility] DETERMINATION OF VENOUS PRESSURE 05/11/2002 [facility] SKIN TEST; TUBERCULOSIS, INTRADERMAL 12/02/2001 [facility] Social History Combined list of available smoking, tobacco, and other social history from Department of Defense and Veterans Affairs facilities. Social History Type Response Date Comment Sourc e Tobacco smoking status IAIS VA-TOBACCO USE EVERY DAY CIGARETTES 10/21/2024 [facility] History of tobacco use VA-TOBACCO NEVER USED OTHER TYPE 10/21/2024 [facility] History of tobacco use VA-TOBACCO USE WI 30 MIN OF WAKEUP 10/29/2023 [facility] History of tobacco use VA-TOBACCO USER EVERY DAY [facility] of [facility] use VA-TOBACCO USE WI 30 MIN OF WAKEUP 09/09/2021 [facility] History of tobacco use VA-TOBACCO QUIT 1 TO < 5 YRS 09/14/2019 [facility] History of tobacco use VA-TOBACCO FORMER USER 09/28/2018 [facility] History of tobacco use QUIT TOBACCO IN THE LAST 12 MONTHS 09/10/2018 [facility] History of tobacco use CURRENT SMOKER 09/28/2017 one ppd [facility] History of tobacco use CURRENT SMOKER 11/05/2016 1 pack/day [facility] History of tobacco use CURRENT SMOKER 11/06/2015 1/2 pack/day [facility] History of tobacco use CURRENT TOBACCO USER 10/10/2014 [facility] History of tobacco use CURRENT TOBACCO USER 06/15/2012 [facility] History of tobacco use FORMER TOBACCO USE >1Y <7Y 09/24/2010 [facility] History of tobacco use FORMER TOBACCO USE >1Y <7Y 11/30/2009 [facility] History of tobacco use IC/PATIENT IS SMOKER 09/06/2008 [facility] History of tobacco use CURRENT SMOKER 09/02/2004 [facility] History of tobacco use CURRENT SMOKER 08/26/2004 [facility] This section is an empty social history section. [facility] Plan of Care List of future care activities from Department of [facility] facilities. Additional future care activities may be listed in the Assessment and Plan section. Date/Time Care Activity Care Activity Detail Facili ty 03/08/2025 AMBULATORY - MEDICINE AMBULATORY - MEDICI [facility] Advance Directives List of completed, amended, or rescinded Advance Directives on record at Department of [facility] facilities. An actual copy of the Directive is not included. Date Advance Directive Provider Source 11/25/2004 ADVANCE DIRECTIVE LINDA ALDRIDGE [facility]
[2025-02-16 11:07] VITALS: BP 193/84; PULSE 80; RESP 17; TEMP 37.1; O2SAT 98; BMI 38.4
--- NOTE | 2025-02-16 11:19 | XR_ITS ---
WS: [id number] XR shoulder RT min 2V* [id number] REASON FOR EXAM: unable to lift, pain FINDINGS: No acute fracture or focal bone lesion. Moderate to significant osteoarthritis in the acromioclavicular joint. The glenohumeral joint space is not demonstrated on the examination. Suspect some degree of narrowing with moderate subchondral sclerosis and osteophytosis of the glenoid. Mild osteophytosis of the humeral head. XR/XR shoulder RT min 2V* [id number] IMPRESSION: No acute abnormality. Moderate to significant osteoarthritis in the acromioclavicular joint. Osteoarthritis of unknown severity in the glenohumeral joint.
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
[2025-02-16 13:20] VITALS: BP 146/69; PULSE 67; O2SAT 97
--- NOTE | 2025-02-16 13:29 | W.ED.EXTPRO ---
HPI - Extremity Problem General: Chief complaint: Extremity Injury, Upper Stated complaint: Rt should pain Time Seen by Provider: 02/16/25 13:01 History of Present Illness: 59-year-old male patient presents to the emergency department complaining of right shoulder pain. Patient states this has been a chronic issue since . Patient states over the last few weeks he has really aggravated this and the pain is now limiting his range of motion. Pain is reproducible pain is only in the shoulder and only with movement. Patient denies any chest pain or shortness of breath. Patient denies any new injury or trauma patient denies any fever. Related Data Home Medications ?Medication ?Instructions ?Recorded ?Confirmed morphine 15 mg immediate release 15 mg PO ONCE PRN 01/02/23 01/16/23 tablet morphine 15 mg tablet,extended 15 mg PO Q12H 01/02/23 01/16/23 release Previous Rx's ?Medication ?Instructions ?Recorded amoxicillin 875 mg-potassium 1 tab PO BID #20 tabs 01/02/23 clavulanate 125 mg tablet ciprofloxacin 0.3 %-dexamethasone 4 drp otic (ear) BID 7 days #7.5 mL 01/02/23 0.1 % ear drops,suspension (Ciprodex) clindamycin HCl 300 mg capsule 300 mg PO TID #30 caps 01/09/23 prednisone 20 mg tablet 20 mg PO BID 3 days #6 tabs 02/16/25 Allergies Allergy/AdvReac Type Severity Reaction Status Date / Time tetracycline Allergy ALGY-Hives Verified 01/16/23 13:51 Review of Systems General: Reports: 10 or more systems reviewed and unremarkable except in HPI and below PFSH ED PFSH: Medical History (Updated 02/16/25 @ 13:35 by Bev Dela Cruz NP) Back pain Social History Smoking and tobacco/nicotine status: current every day tobacco/nicotine user Second hand smoke exposure: No Alcohol intake: never Substance/Drug Use: never Adopted: No Caregiver/support person: No Lives independently: No Household members: spouse Housing: House Marital status: Number of children: 4 Highest education level completed: Some College, No Degree service: Yes Current occupational status: retired and disabled Physical Exam Const: COMMON NORMALS: no acute distress and patient oriented x3 GENERAL APPEARANCE: cooperative Neck/C-Spine: GENERAL: Yes normal visual inspection CERVICAL SPINE: Yes cervical ROM normal and No Cervical spine tenderness Chest: COMMONS NORMALS: normal inspection of the chest Resp: COMMON NORMALS: normal respiratory effort and clear to auscultation bilaterally AUSCULTATION: clear to auscultation bilaterally Cardio: COMMON NORMALS: regular rate and No murmurs present (Cardio) RATE: regular rate RHYTHM: abnormal rhythm Extremity: GENERAL: Yes normal exam except as noted (tenderness to right shoulder ac joint), No cyanosis and No edema Neuro: COMMON NORMALS: patient oriented x3, moves all extremities, no focal motor deficits and gait normal SPEECH: speech normal Psych: COMMON NORMALS: mental status grossly normal Skin: COMMON NORMALS: no rashes or lesions noted and no wounds GENERAL SKIN EXAM: no rashes or lesions noted Course Vital Signs: Vital signs: Vital Signs Temperature 98.8 F 02/16/25 11:07 Pulse Rate 67 02/16/25 13:20 Respiratory Rate 17 02/16/25 11:07 Blood Pressure 146/69 02/16/25 13:20 Pulse Oximetry 97 02/16/25 13:20 Oxygen Delivery Me thod Room Air 02/16/25 11:07 MDM - Extremity (Nontraumatic) Medical Decision Making Patient is well-appearing nontoxic in no acute distress 59-year-old male patient presents to the emergency department complaining of right shoulder pain. Patient states this has been a chronic issue since . Patient states over the last few weeks he has really aggravated this and the pain is now limiting his range of motion. Pain is reproducible pain is only in the shoulder and only with movement. Patient denies any chest pain or shortness of breath. Patient denies any new injury or trauma patient denies any fever. Patient's x-ray shows osteoarthritis in that right shoulder. I will put patient on a short course of steroids and at this point given the worsening of pain and osteoarthritis I will refer him to Ortho. Lab Data Radiology Impressions Shoulder X-Ray 02/16/25 11:19 IMPRESSION: No acute abnormality. Moderate to significant osteoarthritis in the acromioclavicular joint. Osteoarthritis of unknown severity in the glenohumeral joint. All radiology interpretation(s) finalized by discharge Discharge Plan Discharge Patient Disposition: Home Clinical Impression: Shoulder arthralgia Qualifiers: Laterality: right Qualified Code(s): M25.511 - Pain in right shoulder Condition: Stable Prescriptions: New prednisone 20 mg tablet 20 mg PO BID 3 Days Qty: 6 0RF No Action clindamycin HCl 300 mg capsule 300 mg PO TID Qty: 30 0RF morphine 15 mg tablet 15 mg PO ONCE PRN morphine 15 mg tablet extended release 15 mg PO Q12H amoxicillin-pot clavulanate 875-125 mg tablet 1 tab PO BID Qty: 20 0RF ciprofloxacin-dexamethasone [Ciprodex] 0.3-0.1 % drops,suspension 4 drp otic (ear) BID 7 Days Qty: 7.5 0RF Discharge Orders: Discharge ED (Routine); Ordered 02/16/25 Ordered By: Bev Dela Cruz Referrals: Patricia Henry MD [Primary Care Provider, Family Practice] Discharge Diet: Advance as tolerated Discharge Activity: Increase activity as tolerated Patient Instructions: Shoulder Pain (ED), Opioid Safety, Pain Management, Patient Portal & Tiffanie Instructions Activity Restrictions/Additional Instructions: Return to ER with any worsening of pain or symptoms Follow up with Ortho Take meds as prescribed Print Language: Trinidadian Coding Level of Care Code ED Bookmaker'S Clerk for Harinder Joyner
[2025-02-16 13:58] VITALS: BP 149/69; PULSE 67; O2SAT 97
== END 2025-02-16 13:58 | disposition home or self-care (01) ==
PROVIDERS: Emergency Provider Registered Nurse; PCP Family Medicine
DX: M25.511 Pain in right shoulder (principal)
CPT/HCPCS: 73030; 99283

== ENCOUNTER → 2025-02-21 14:21 | Outpatient (BNVA) | payer OTHER, SELFPAY | PROVIDERS: PCP Family Medicine; Visit Provider Physician Assistant | DX: M25.511 Pain in right shoulder (principal); S49.91XA Unspecified injury of right shoulder and upper arm, initial encounter; W03.XXXA Other fall on same level due to collision with another person, initial encounter; Y93.61 Activity, american tackle football | CPT/HCPCS: 73030; 99203 ==

== ENCOUNTER 2025-03-07 12:48 | Outpatient (CLI) | payer OTHER, SELFPAY ==
--- NOTE | 2025-03-07 12:59 | XRR_ITS ---
PROCEDURE INFORMATION: Exam: XR Lumbosacral Spine Exam date and time: 03/07/2025 1:08 PM Age: 59 years old Clinical indication: Low back pain; Prior surgery; Surgery date: 6+ months; Surgery type: Laminectomy, discectomy in lower back; Additional info: Lumbosacral spondylosis TECHNIQUE: Imaging protocol: Radiologic exam of the lumbosacral spine. Views: 6 or more views. Including flexion and extension views. COMPARISON: CT abdomen pelvis wo con [id number] 01/01/2022 8:41 PM FINDINGS: Bones/joints: Preserved lumbar vertebral body heights and alignment. Multilevel degenerative disc and spondylosis changes. Facet degenerative changes especially at the lower levels which results in varying degrees of neural foraminal narrowing on a bony basis. Soft tissues: Unremarkable. XR/XR lumbar spine 6V w f/e [id number] IMPRESSION: As above.
== END 2025-03-07 12:49 | disposition home or self-care (01) ==
LOC: RAD 12:54
PROVIDERS: PCP Family Medicine; Visit Provider Student in an Organized Health Care Education/Training Program
DX: M47.817 Spondylosis without myelopathy or radiculopathy, lumbosacral region (principal); M51.370 Other intervertebral disc degeneration, lumbosacral region with discogenic back pain only
CPT/HCPCS: 72114